=== PATIENT | male | born 1950 | race Caucasian/White ===

== ENCOUNTER 2019-05-04 16:17 | Inpatient (IN) | payer MEDICARE, SELFPAY ==
[2019-05-04] VITALS (14 sets, daily range): BP systolic 109–143; BP diastolic 67–85; PULSE 98–108; RESP 18–37; TEMP 36.1–37.2; O2SAT 76–98; BMI 33.0
--- NOTE | ~2019-05-04 | XR_ITS ---
XR chest 2V 05/04/2019 17:15 Indication: Shortness of breath. History of COPD. Procedure: 2 view chest Comparison: Comparison to multiple prior studies sequentially, with oldest reviewed study dated 10/01. Findings: Heart size normal. Chronic bibasilar atelectasis/scarring. No acute focal pneumonia, edema, pleural effusion or pneumothorax. No acute osseous abnormality. Impression: 1: No acute cardiopulmonary disease. Reviewed, dictated and finalized at location A. Impression: 1: No acute cardiopulmonary disease.
--- NOTE | 2019-05-04 16:54 | ECG_ITS ---
Measurements Intervals [place] Rate: 104 P: 63 MN: 140 QRS: -30 QRSD: 90 T: 50 QT: 318 QTc: 420 Interpretive Statements SINUS TACHYCARDIA LEFT AXIS DEVIATION INCOMPLETE RIGHT BUNDLE BRANCH BLOCK DELAYED PRECORDIAL R/S TRANSITION LOW QRS VOLTAGE IN PRECORDIAL LEADS BORDERLINE ECG Electronically Signed On 05-05-2019 6:56:53 CDT by Alexi Prince D.O.
--- NOTE | 2019-05-04 16:56 | PC.NURSE ---
Pt states he slept more than normal today. Pt states he woke up this afternoon and checked his oxygen sat. Pt states it was 74%. Pt states he could not catch his breath. Pt denies pain. Pt has expiratory wheezing and diminished lung sounds throughout. Pt has family at bedside and call light in reach
--- NOTE | 2019-05-04 17:00 | ED.SOB ---
HPI - SOB/Dyspnea General Chief Complaint: Shortness of Breath/Dyspnea Stated Complaint: sob, hx copd Time Seen by Provider: 05/04/19 16:58 Source: patient, family (Son at bedside) and RN notes reviewed Mode of arrival: ambulatory Limitations: no limitations History of Present Illness HPI Narrative: Pt is a 68 y/o male presenting to the ED c/o SOB. Pt reports he started experiencing SOB earlier this morning. Pt's son at bedside notes the pt has a Hx of COPD and has chronic SOB with exertion. Pt states he does not have daytime oxygen and notes he does use oxygen to sleep at night. Pt denies palpitations, fever, or CP. Pt's son at bedside reports the pt required intubation after having PNA and also had a AAA surgery last year. Pt notes he is currently on a blood thinner due to a Hx of A Fib. Pertinent past history: COPD Onset (ago): unknown (Earlier this morning) Associated symptoms: denies other symptoms Related Data Home Medications Medication Instructions Recorded Confirmed diltiazem HCl [DILT-XR] 240 mg PO DAILY 05/04/19 05/04/19 rivaroxaban [Xarelto] 20 mg DAILY 05/04/19 05/04/19 rosuvastatin 40 mg PO DAILY 05/04/19 05/04/19 Allergies Allergy/AdvReac Type Severity Reaction Status Date / Time No Known Allergies Allergy Unknown Unverified 09/25/18 13:14 Review of Systems Review of Systems: Narrative: Constitutional: Negative for fever. Respiratory: Positive for dyspnea. Cardiovascular: Negative for palpitations or chest pain. All systems reviewed & are unremarkable except as noted in HPI and below PMFSH Past Medical History Medical History Adult idiopathic generalized osteoporosis Ankle fracture, left Ankle fracture, right Arthritis Atrial fibrillation Bladder cancer Cataracts, bilateral COPD (chronic obstructive pulmonary disease) Kidney stone Pneumonia UTI (urinary tract infection) Surgical History Surgical History H/O vascular surgery Stent in RLE S/P AAA repair S/P cataract surgery Family History Family History Father Family history of obesity Family history of cardiovascular disease Family history of coronary artery disease Sibling Family history of congenital heart disease, Onset Age: 60 Family history of respiratory disorder, Onset Age: 73 Mother Family history of primary malignant neoplasm of liver, Onset Age: 62 Social History Social History Smoking packs per day: 1.5 Smoking cigarettes per day: 30.0 Years smoked: 45 Smoking pack-years: 67.50 Smoking status: Former smoker Tobacco type: cigarettes Second hand tobacco smoke exposure: No Smoking end date: 02/23/16 Alcohol intake: never Substance use: never Gender identity (if verbalized by the patient): Male Spiritual care concerns: No Exam Const: General: no acute distress and well developed Orientation/consciousness: oriented to person, oriented to place, oriented to time and patient oriented x3 HENMT: Head: normocephalic Ears: external ears normal General nose exam: Normal external nose present Eyes: General: appearance normal, both eyes and all related structures Conjunctivae: conjunctivae normal Neck: Neck: normal visual inspection and full ROM Chest: Chest palpation & inspection: normal inspection of the chest and no tenderness Resp: Auscultation: wheezes Cardio: Rate: tachycardic Rhythm: regular rhythm Skin: General skin exam: normal color and turgor normal Neuro: General: oriented to person, oriented to place, oriented to time and patient oriented x3 Cognition (Neuro): normal cognition Extrem: General: normal to inspection, full ROM and no pedal edema Psych: Appearance: grossly normal Mental Status: mental status grossly normal Affect:
[2019-05-04] MEDS: IPRATROPIUM BR 0.02% INH SOLN 0.5 MG/2.5 ML VIAL INHALATION (17:17)
[2019-05-04] MEDS: ALBUTEROL SULFATE NEB 2.5 MG/0.5 ML INH INHALATION (17:18)
[2019-05-04 17:20] LABS: Basophils Absolute Auto 0.1 K/mm3 (0.0-0.1); Basophils Percent Auto 0.9 % (0.2-1.2); Eosinophils Absolute Auto 0.2 K/mm3 (0-0.3); Eosinophils Percent Auto 2.1 % (0-4.4); Hematocrit 40.6 % (42.0-52.0); Hemoglobin 11.5 g/dL (14.0-18.0); Immature Granulocyte Absolute 0.05 K/mm3 (0.00-0.031); Immature Granulocyte Percent A 0.6 % (0-0.5); Immature Platelet Fraction Pct 8.8 % (0.9-11.2); Lymphocytes Absolute Auto 1.18 K/mm3 (0.9-3.2); Lymphocytes Percent Auto 13.9 % (18.3-44.2); Mean Corpuscular HGB Conc 28.3 g/dl (32-36); Mean Corpuscular Hemoglobin 23.1 pg (26-34); Mean Corpuscular Volume 81.7 fl (80-100); Mean Platelet Volume 11.2 fl (7.4-10.4); Monocytes Absolute Auto 0.7 K/mm3 (0.1-0.6); Monocytes Percent Auto 8.5 % (2.6-8.5); Neutrophils Absolute Auto 6.3 K/mm3 (1.3-6.7); Platelet Count Result 177 k/mm3 (150-375); Red Blood Count 4.97 M/mm3 (4.6-6.20); Red Cell Distribution Width 17.3 % (11.5-14.5); White Blood Count 8.5 K/mm3 (4.5-10.0)
[2019-05-04 17:26] LABS: Hypochromasia 1+ (NORMAL); Ovalocytes 1+ (NORMAL); Platelet Estimate Adequate (Adequate)
[2019-05-04 17:30] LABS: Blood Urea Nitrogen 19 mg/dL (9-20); Calcium 8.5 mg/dL (8.4-10.2); Carbon Dioxide 31 mmol/L (22-30); Chloride 102 mmol/L (98-107); Estimated CRCL calculation 70 ml/min; Estimated Glomerular Filt Rate > 60; Glucose 116 mg/dL (75-110); Lactic Acid Reflex 1.1 mmol/L (0.7-2.1); Sodium 138 mmol/L (137-145)
[2019-05-04] MEDS: methylPREDNISolone SOD SUCC 40 MG VIAL IV PUSH (17:36)
--- NOTE | 2019-05-04 19:16 | PM.IMHP ---
H&P: HPI History of Present Illness Chief complaint: copd exacerbation Narrative: This is a 68 year old male with known COPD and chronic respiratory failure on 2L of oxygen at night who presented to the hospital today with a complaint of increased shortness of breath since this morning. The patient also noticed this morning that his oxygen sats were low. Associated symptoms include a sporadic poorly productive cough, wheezing, and generalized weakness. He mentions to me that the last time he had pneumonia he was intubated for almost a week. He denies any fevers, chest pain, palpitations, abdominal pain, dysuria, hematuria, or LE swelling. The patient just saw his vascular surgeon yesterday for follow up for his AAA repair that was done last year. Actually the patient denies any other symptoms. He desaturated on room air in the ER and we were asked to admit the patient to the hospital for a COPD exacerbation. No other complaints. Review of Systems Review of Systems: All systems reviewed & are unremarkable except as noted in HPI and below PMFSH Past Medical History Medical History Adult idiopathic generalized osteoporosis Ankle fracture, left Ankle fracture, right Arthritis Atrial fibrillation Bladder cancer Cataracts, bilateral COPD (chronic obstructive pulmonary disease) Kidney stone Pneumonia UTI (urinary tract infection) Surgical History Surgical History H/O vascular surgery Stent in RLE S/P AAA repair S/P cataract surgery Family History Family History Father Family history of obesity Family history of cardiovascular disease Family history of coronary artery disease Sibling Family history of congenital heart disease, Onset Age: 60 Family history of respiratory disorder, Onset Age: 73 Mother Family history of primary malignant neoplasm of liver, Onset Age: 62 Social History Social History Smoking packs per day: 1.5 Smoking cigarettes per day: 30.0 Years smoked: 45 Smoking pack-years: 67.50 Smoking status: Former smoker Tobacco type: cigarettes Second hand tobacco smoke exposure: No Smoking end date: 02/23/16 Alcohol intake: never Substance use: never Gender identity (if verbalized by the patient): Male Spiritual care concerns: No Meds Home Medications and Allergies Home Medications Medication Instructions Recorded Confirmed Type umeclidinium 62.5 mcg-vilanterol 1 inhalation INHALATION DAILY #60 01/30/19 05/04/19 Rx 25 mcg/actuation powdr for each inhalation diltiazem HCl [DILT-XR] 240 mg PO DAILY 05/04/19 05/04/19 History rivaroxaban [Xarelto] 20 mg DAILY 05/04/19 05/04/19 History rosuvastatin 40 mg PO DAILY 05/04/19 05/04/19 History Allergies Allergy/AdvReac Type Severity Reaction Status Date / Time No Known Allergies Allergy Unknown Unverified 09/25/18 13:14 Vital Signs Vital Signs - 24 hr 05/04/19 16:40 05/04/19 16:43 05/04/19 16:58 Temperature 37.2 C Pulse Rate 107 H 103 H Respiratory Rate 20 19 Blood Pressure 124/72 Pulse Oximetry 76 L 94 94 05/04/19 17:05 05/04/19 17:18 05/04/19 17:24 Temperature Pulse Rate 103 H 101 H 102 H Respiratory Rate 18 20 20 Blood Pressure Pulse Oximetry 98 05/04/19 17:30 05/04/19 17:45 05/04/19 18:00 Temperature Pulse Rate 98 102 H 100 Respiratory Rate 37 H 23 H 20 Blood Pressure Pulse Oximetry 93 97 78 L 05/04/19 18:15 05/04/19 18:30 05/04/19 18:37 Temperature Pulse Rate 98 101 H 103 H Respiratory Rate 25 H 25 H 32 H Blood Pressure 143/67 H Pulse Oximetry 84 L 92 91 05/04/19 18:45 Temperature Pulse Rate 100 Respiratory Rate 24 H Blood Pressure Pulse Oximetry 90 Exam Const: General: cooperative,
--- NOTE | 2019-05-04 20:49 | ADMGEN ---
This patient, Pedro Angelo, was admitted to Medical Room 349-. Patient/family oriented to hospital policies and general routines including ID bracelet, bed and alarms, visiting hours, pain management, procedures, bathroom and other care routines, personal items, smoking policy, room service/diet, and visiting hours. Valuables list has been completed. Information on how to activate the Rapid Response Team has been discussed. Patient/Family are encouraged to report perceived risks to care and to ask questions if they do not understand what they are told or what they should do.
--- NOTE | 2019-05-04 22:08 | PCRCNOTE ---
No 1999 tx given due to no room assigned at that time
[2019-05-05] VITALS (19 sets, daily range): BP systolic 105–142; BP diastolic 59–87; PULSE 86–110; RESP 18–20; TEMP 36.1–36.3; O2SAT 92–96
[2019-05-05] MEDS: methylPREDNISolone SOD SUCC 125 MG VIAL 60 MG IV PUSH ×4 (00:09→20:38)
[2019-05-05] MEDS: IPRATROPIUM BR 0.02% INH SOLN 0.5 MG/2.5 ML VIAL INHALATION ×4 (01:00→19:28)
[2019-05-05] MEDS: ALBUTEROL SULFATE NEB 2.5 MG/0.5 ML INH 5 MG INHALATION ×4 (01:00→19:28)
[2019-05-05 06:01] LABS: Basophils Percent Auto 0.5 % (0.2-1.2); Hematocrit 43.7 % (42.0-52.0); Hemoglobin 11.9 g/dL (14.0-18.0); Immature Granulocyte Absolute 0.14 K/mm3 (0.00-0.031); Immature Granulocyte Percent A 1.6 % (0-0.5); Lymphocytes Absolute Auto 0.57 K/mm3 (0.9-3.2); Lymphocytes Percent Auto 6.7 % (18.3-44.2); Mean Corpuscular HGB Conc 27.2 g/dl (32-36); Mean Corpuscular Hemoglobin 22.9 pg (26-34); Mean Corpuscular Volume 84.2 fl (80-100); Mean Platelet Volume 11.2 fl (7.4-10.4); Monocytes Percent Auto 0.2 % (2.6-8.5); Neutrophils Absolute Auto 7.7 K/mm3 (1.3-6.7); Platelet Count Result 230 k/mm3 (150-375); Red Blood Count 5.19 M/mm3 (4.6-6.20); Red Cell Distribution Width 17.1 % (11.5-14.5); White Blood Count 8.5 K/mm3 (4.5-10.0)
[2019-05-05 06:12] LABS: Blood Urea Nitrogen 20 mg/dL (9-20); Calcium 8.7 mg/dL (8.4-10.2); Carbon Dioxide 33 mmol/L (22-30); Chloride 104 mmol/L (98-107); Estimated CRCL calculation 66 ml/min; Estimated Glomerular Filt Rate 60; Glucose 154 mg/dL (75-110); Magnesium 2.3 mg/dL (1.6-2.3); Potassium 5.7 mmol/L (3.4-5.0); Sodium 139 mmol/L (137-145)
[2019-05-05 06:58] LABS: Anisocytosis 1+ (NORMAL); Hypochromasia 1+ (NORMAL); Platelet Estimate Adequate (Adequate)
--- NOTE | 2019-05-05 07:08 | PHAR ---
Home med of ANORO ELLIPTA 62.5mcg/25mcg has been verified.
[2019-05-05] MEDS: ROSUVASTATIN 10 MG TABLET 40 MG PO (09:33)
--- NOTE | 2019-05-05 11:05 | PM.IMPN ---
Progress Note: A&P Assessment and Plan (1) Acute exacerbation of chronic obstructive pulmonary disease (COPD): Code(s): J44.1 - Chronic obstructive pulmonary disease with (acute) exacerbation Status: Acute Assessment and Plan: Patient symptomatically improving, although still requiring oxygen. Will taper steroids to Q12 hr for today PEP therapy RT assess and treat BC and sputum cultures pending Wean to home oxygen requirements as tolerated (2) Normocytic anemia: Code(s): D64.9 - Anemia, unspecified Status: Acute Assessment and Plan: Likely anemia of chronic disease. No signs of acute blood loss. H&H stable today Monitor H/H Transfuse prn (3) Atrial fibrillation: Qualifiers: Atrial fibrillation type: unspecified Qualified Code(s): I48.91 - Unspecified atrial fibrillation Code(s): I48.91 - Unspecified atrial fibrillation Status: Acute Assessment and Plan: Appears to be in sinus rhythm at time of evaluation Continue Xarelto for anticoagulation Continue dilatiazem for rate control Subjective Date/time seen: 05/05/19 11:05 Interval history: Patient is a 68 yo M with history of COPD and chronic respiratory failure on 2L of oxygen at night, and EDILSON (does not tolerate a mask) who is here for for COPD exacerbation. Patient states that he is feeling better today, although now is on 5L O2 while in the room. Nursing reports that he does well during the day, but desats overnight. He states his SOB is improving. He is wishing to go home as soon as possible; it was discussed the importance of making sure his breathing is improving, if not stable prior to leaving the hospital. He has no other complaints at this moment. He does state he does not want to be on steroids for too long, because the make him crazy and what sounds like makes him experience hallucinations from previous treatments with steroids. Denies f/c/ns, headaches, dizziness, lightheadedness, changes in v/h, cp/palpitations, n/v/d/c, abd pain, dysuria, hematuria, cloudy urine, calf pain/swelling, s/sx of stroke Review of Systems Review of Systems: All systems reviewed & are unremarkable except as noted in HPI and below Exam Narrative: Exam Narrative: Patient sitting on side of bed at time of visit Const: General: cooperative, comfortable, no acute distress, alert and awake Nutritional Appearance: well nourished Orientation/consciousness: patient oriented x3 HENMT: Head: normal to inspection General nose exam: Normal external nose present Face and sinus: face symmetric Mouth: Yes other (erythema of oropharynx) Teeth and gingiva: dentures Eyes: General: appearance normal, both eyes and all related structures Sclera: scleral abnormality (injected) Pupils: Irregular pupils on the right (inferior pupil defect noted) EOM: EOMs intact bilaterally Neck: Neck: supple and no JVD Resp: Effort & Inspection: normal respiratory effort Auscultation: diminished lung sounds Cardio: Rate: tachycardic Rhythm: regular rhythm Heart sounds: no murmurs GI: Inspection: normal to inspection Auscultation: normal bowel sounds Skin: General skin exam: normal color and no rashes or lesions noted Neuro: General: patient oriented x3, moves all extremities and no focal motor deficits Cranial nerves: Yes Equal, round and reactive pupils present Speech: normal speech Motor exam (neuro): 5/5 motor strength present throughout Extrem: Right lower extremity: no edema Left lower extremity: no edema Other: NTTP b/l calves Psych: Mental Status: mental status grossly normal Affect: normal affect Objective Data Vital Signs Vital Signs: Vital Signs - 24 hr 05/04/19 16:40 05/04/19 16:43 05/04/19 16:58 Temperature 98.9 F Pulse Rate 107 H 103 H Respiratory Rate 20 19 Blood Pressure 124/72 Pulse Oximetry 76 L 94 94
[2019-05-05] MEDS: RIVAROXABAN 20 MG TABLET BY MOUTH (17:48)
[2019-05-06] VITALS (18 sets, daily range): BP systolic 124–152; BP diastolic 64–65; PULSE 66–95; RESP 14–22; TEMP 36.1–36.4; O2SAT 93–97
[2019-05-06] MEDS: IPRATROPIUM BR 0.02% INH SOLN 0.5 MG/2.5 ML VIAL INHALATION ×4 (00:46→20:02)
[2019-05-06] MEDS: ALBUTEROL SULFATE NEB 2.5 MG/0.5 ML INH 5 MG INHALATION ×2 (00:46→10:11)
[2019-05-06 05:59] LABS: Hematocrit 36.9 % (42.0-52.0); Hemoglobin 10.5 g/dL (14.0-18.0); Mean Corpuscular HGB Conc 28.5 g/dl (32-36); Mean Corpuscular Hemoglobin 23.1 pg (26-34); Mean Corpuscular Volume 81.3 fl (80-100); Mean Platelet Volume 11.4 fl (7.4-10.4); Platelet Count Result 219 k/mm3 (150-375); Red Blood Count 4.54 M/mm3 (4.6-6.20); Red Cell Distribution Width 16.7 % (11.5-14.5); White Blood Count 11.9 K/mm3 (4.5-10.0)
[2019-05-06 06:15] LABS: Blood Urea Nitrogen 36 mg/dL (9-20); Calcium 8.6 mg/dL (8.4-10.2); Carbon Dioxide 30 mmol/L (22-30); Chloride 99 mmol/L (98-107); Estimated CRCL calculation 66 ml/min; Estimated Glomerular Filt Rate 60; Glucose 137 mg/dL (75-110); Magnesium 2.2 mg/dL (1.6-2.3); Potassium 5.2 mmol/L (3.4-5.0); Sodium 137 mmol/L (137-145)
[2019-05-06 08:39] LABS: Iron 44 ug/dL (49-181)
[2019-05-06 08:49] LABS: Percent Iron Saturation 10 % (20-50)
[2019-05-06] MEDS: ROSUVASTATIN 10 MG TABLET 40 MG PO (09:48)
[2019-05-06] MEDS: methylPREDNISolone SOD SUCC 125 MG VIAL 60 MG IV PUSH ×2 (09:49→22:12)
--- NOTE | 2019-05-06 13:14 | PM.IMPN ---
Progress Note: A&P Assessment and Plan (1) Acute exacerbation of chronic obstructive pulmonary disease (COPD): Code(s): J44.1 - Chronic obstructive pulmonary disease with (acute) exacerbation Status: Acute Assessment and Plan: Patient symptomatically improving, although still requiring oxygen at 2.5L today and satting at low 90s; improvement from yesterday. Wheezing on exam today Will continue steroids at Q12 hr for today. Possibly wean tomorrow PEP therapy, mucinex, switch albuterol neb to levalbuterol today due to jitteriness RT assess and treat BC and sputum cultures pending Wean to home oxygen requirements as tolerated (2) Normocytic anemia: Code(s): D64.9 - Anemia, unspecified Status: Acute Assessment and Plan: Likely anemia of chronic disease. No signs of acute blood loss. H&H lower at 10.5/26.9 today Monitor H/H Transfuse prn (3) Atrial fibrillation: Qualifiers: Atrial fibrillation type: unspecified Qualified Code(s): I48.91 - Unspecified atrial fibrillation Code(s): I48.91 - Unspecified atrial fibrillation Status: Acute Assessment and Plan: Appears to be in sinus rhythm at time of evaluation Continue Xarelto for anticoagulation Continue dilatiazem for rate control Subjective Date/time seen: 05/06/19 13:14 Interval history: Patient is a 68 yo M with history of COPD and chronic respiratory failure on 2L of oxygen at night, and EDILSON (does not tolerate a mask) who is here for for COPD exacerbation. Patient states that he is about the same today. He is not SOB resting comfortably on 2.5L O2 (Home req of 2L at night). He has a generally non-productive cough occasionally. He thinks he had some mild hallucinations overnight and felt jittery with the steroids. He is more open to trying CPAP once he leaves here. He follows Dr. Joseph as an outpatient and has an appointment in May. Denies f/c/ns, headaches, dizziness, lightheadedness, cp/palpitations, sob, n/v/d/c, abd pain, dysuria, hematuria, cloudy urine, calf pain/swelling, s/sx of stroke Review of Systems Review of Systems: All systems reviewed & are unremarkable except as noted in HPI and below Exam Narrative: Exam Narrative: Patient lying supine in bed with head slightly raised at time of visit Const: General: cooperative, comfortable, no acute distress, alert and awake Nutritional Appearance: well nourished Orientation/consciousness: patient oriented x3 HENMT: Head: normal to inspection General nose exam: Normal external nose present Face and sinus: face symmetric Eyes: General: appearance normal, both eyes and all related structures Sclera: scleral abnormality (injected) Pupils: Irregular pupils on the right (inferior pupil defect noted) EOM: EOMs intact bilaterally Neck: Neck: supple and no JVD Resp: Effort & Inspection: normal respiratory effort, able to speak in complete sentences, not labored and no respiratory distress Auscultation: rhonchi throughout, wheezes expiratory wheezes (mild) and diminished lung sounds Cardio: Rate: tachycardic Rhythm: regular rhythm Heart sounds: no murmurs GI: Inspection: non-distended GI Palp: No abdominal tenderness and Yes Soft to palpation Auscultation: normal bowel sounds and normoactive bowel sounds Skin: General skin exam: normal color and no rashes or lesions noted Neuro: General: patient oriented x3, moves all extremities and no focal motor deficits Speech: normal speech Motor exam (neuro): 5/5 motor strength present throughout Extrem: Right lower extremity: no edema Left lower extremity: no edema Other: NTTP b/l calves Psych: Mental Status: mental status grossly normal Affect: normal affect Objective Data Vital Signs Vital Signs: Vital Signs - 24 hr 05/05/19 13:59 05/05/19 14:00 05/05/19 14:09 Temperature
[2019-05-06] MEDS: RIVAROXABAN 20 MG TABLET BY MOUTH (17:48)
[2019-05-07] VITALS (20 sets, daily range): BP systolic 134–148; BP diastolic 59–78; PULSE 77–111; RESP 16–23; TEMP 36.2–36.5; O2SAT 93–97
[2019-05-07] MEDS: IPRATROPIUM BR 0.02% INH SOLN 0.5 MG/2.5 ML VIAL INHALATION ×4 (01:18→21:00)
[2019-05-07 06:07] LABS: Hematocrit 38.6 % (42.0-52.0); Mean Corpuscular HGB Conc 28.5 g/dl (32-36); Mean Corpuscular Hemoglobin 23.1 pg (26-34); Mean Corpuscular Volume 80.9 fl (80-100); Mean Platelet Volume 10.9 fl (7.4-10.4); Platelet Count Result 230 k/mm3 (150-375); Red Blood Count 4.77 M/mm3 (4.6-6.20); Red Cell Distribution Width 17.1 % (11.5-14.5); White Blood Count 12.4 K/mm3 (4.5-10.0)
[2019-05-07 08:37] LABS: Blood Urea Nitrogen 36 mg/dL (9-20); Calcium 8.6 mg/dL (8.4-10.2); Carbon Dioxide 31 mmol/L (22-30); Chloride 100 mmol/L (98-107); Estimated CRCL calculation 66 ml/min; Estimated Glomerular Filt Rate 60; Glucose 202 mg/dL (75-110); Magnesium 2.3 mg/dL (1.6-2.3); Sodium 139 mmol/L (137-145)
[2019-05-07] MEDS: methylPREDNISolone SOD SUCC 125 MG VIAL 60 MG IV PUSH (09:40)
[2019-05-07] MEDS: ROSUVASTATIN 10 MG TABLET 40 MG PO (09:40)
[2019-05-07] MEDS: IRON SUCROSE COMPLEX 500 MG in SODIUM CHLORIDE 0.9% IV 250 ML 78.6 MG IVPB (10:27)
--- NOTE | 2019-05-07 12:55 | PM.IMPN ---
Progress Note: A&P Assessment and Plan (1) Acute exacerbation of chronic obstructive pulmonary disease (COPD): Code(s): J44.1 - Chronic obstructive pulmonary disease with (acute) exacerbation Status: Acute Assessment and Plan: Patient symptomatically improving, although still requiring oxygen at 2.5L again today. Improvement on lung exam today Will Taper to 40 mg Solu-Medrol at Q12 hr starting tonight. Possibly wean again tomorrow PEP therapy, mucinex, levalbuterol nebs RT assess and treat BC and sputum cultures pending Wean to home oxygen requirements as tolerated Will order Home O2 eval tomorrow (2) Normocytic anemia: Code(s): D64.9 - Anemia, unspecified Status: Acute Assessment and Plan: Likely anemia of chronic disease. No signs of acute blood loss. Hgb 11.0. Iron panel shows low stores. Venofer 500 mg IV today; daily iron pill starting tomorrow Follow up with PCP Monitor H/H Transfuse prn (3) Atrial fibrillation: Qualifiers: Atrial fibrillation type: unspecified Qualified Code(s): I48.91 - Unspecified atrial fibrillation Code(s): I48.91 - Unspecified atrial fibrillation Status: Acute Assessment and Plan: Appears to be in sinus rhythm at time of evaluation. Telemetry shows predominantly NSR, occasionally tachycardia; several instances of artifact. Asymptomatic Continue Xarelto for anticoagulation Continue dilatiazem for rate control Subjective Date/time seen: 05/07/19 12:55 Interval history: Patient is a 68 yo M with history of COPD and chronic respiratory failure on 2L of oxygen at night, and EDILSON (does not tolerate a mask) who is here for for COPD exacerbation. Patient states that he is about the same today. Again, he is not SOB, resting comfortably on 2.5L O2 (Home req of 2L at night), still. He has more sputum production from his cough. He slept better last night with the adjusted CPAP mask. Otherwise no other complaints. Denies f/c/s, headaches, dizziness, lightheadedness, cp/palpitations, sob, n/v/d/c, abd pain, dysuria, hematuria, cloudy urine, calf pain/swelling Review of Systems Review of Systems: All systems reviewed & are unremarkable except as noted in HPI and below Exam Narrative: Exam Narrative: Patient lying supine in bed with head slightly raised at time of visit Const: General: cooperative, comfortable, no acute distress, alert and awake Nutritional Appearance: well nourished Orientation/consciousness: patient oriented x3 HENMT: Head: normal to inspection General nose exam: Normal external nose present Face and sinus: face symmetric Teeth and gingiva: dentures Eyes: General: appearance normal, both eyes and all related structures Sclera: scleral abnormality (injected) Pupils: Irregular pupils on the right (inferior pupil defect noted) EOM: EOMs intact bilaterally Neck: Neck: trachea midline and supple Resp: Effort & Inspection: normal respiratory effort, able to speak in complete sentences, not labored and no respiratory distress Auscultation: rhonchi throughout (interval improvement from yesterday), wheezes expiratory wheezes (interval improvement from yesterday) and diminished lung sounds Cardio: Rate: regular rate Rhythm: regular rhythm Heart sounds: no murmurs GI: Inspection: non-distended GI Palp: No abdominal tenderness and Yes Soft to palpation Auscultation: normal bowel sounds and normoactive bowel sounds Skin: General skin exam: normal color and no rashes or lesions noted Neuro: General: patient oriented x3, moves all extremities and no focal motor deficits Speech: normal speech Motor exam (neuro): 5/5 motor strength present throughout Extrem: Right lower extremity: no edema Left lower extremity: no edema Other: NTTP b/l calves Psych: Mental Status: mental status grossly normal Affe
[2019-05-07] MEDS: RIVAROXABAN 20 MG TABLET BY MOUTH (17:52)
[2019-05-07] MEDS: methylPREDNISolone SOD SUCC 40 MG VIAL IV PUSH (17:52)
[2019-05-08] VITALS (27 sets, daily range): BP systolic 119–141; BP diastolic 63–84; PULSE 63–152; RESP 16–20; TEMP 36.1–36.6; O2SAT 86–97
[2019-05-08] MEDS: IPRATROPIUM BR 0.02% INH SOLN 0.5 MG/2.5 ML VIAL INHALATION ×4 (02:07→22:56)
[2019-05-08] MEDS: methylPREDNISolone SOD SUCC 40 MG VIAL IV PUSH (06:04)
[2019-05-08 06:11] LABS: Hematocrit 37.6 % (42.0-52.0); Hemoglobin 10.4 g/dL (14.0-18.0); Mean Corpuscular HGB Conc 27.7 g/dl (32-36); Mean Corpuscular Hemoglobin 22.7 pg (26-34); Mean Corpuscular Volume 81.9 fl (80-100); Mean Platelet Volume 11.5 fl (7.4-10.4); Platelet Count Result 197 k/mm3 (150-375); Red Blood Count 4.59 M/mm3 (4.6-6.20); Red Cell Distribution Width 17.2 % (11.5-14.5); White Blood Count 8.9 K/mm3 (4.5-10.0)
[2019-05-08 06:28] LABS: Blood Urea Nitrogen 34 mg/dL (9-20); Calcium 8.6 mg/dL (8.4-10.2); Carbon Dioxide 34 mmol/L (22-30); Chloride 100 mmol/L (98-107); Estimated CRCL calculation 71 ml/min; Estimated Glomerular Filt Rate > 60; Glucose 129 mg/dL (75-110); Sodium 137 mmol/L (137-145)
[2019-05-08 06:38] LABS: Potassium 4.8 mmol/L (3.4-5.0)
[2019-05-08] MEDS: ROSUVASTATIN 10 MG TABLET 40 MG PO (08:11)
[2019-05-08] MEDS: FERROUS SULFATE 324 MG TABLET PO (08:12)
--- NOTE | 2019-05-08 09:04 | PM.IMPN ---
Progress Note: A&P Assessment and Plan (1) Atrial fibrillation with RVR: Code(s): I48.91 - Unspecified atrial fibrillation Status: Acute Assessment and Plan: History of paroxysmal atrial fibrillation on Xarelto and diltiazem. This morning around 6:00 a.m. the patient went into atrial fibrillation with rapid ventricular response. Telemetry showed AFib with a heart rate of 110-126 bpm, with occasional PVCs. The nurse administered his home Cardizem 250 mg without much improvement of his heart rate. Cardiology was consulted at this time for further evaluation of his AFib with RVR. Will continue monitoring the patient on telemetry and she would cardiology would like to do. (2) Acute exacerbation of chronic obstructive pulmonary disease (COPD): Code(s): J44.1 - Chronic obstructive pulmonary disease with (acute) exacerbation Status: Acute Assessment and Plan: Patient symptomatically improving, although still requiring oxygen at 2.5L again today. Lung exam shows distant lung sounds with end-expiratory wheezing throughout. Continue 40 mg Solu-Medrol at Q12 hr . Consult pulmonology about further recommendations on discharge medications, respiratory status and positive blood cultures showing Pseudomonas. PEP therapy, mucinex, levalbuterol nebs RT assess and treat Blood cultures are still negative at this time. Wean to home oxygen requirements as tolerated Will order Home O2 eval (3) Normocytic anemia: Code(s): D64.9 - Anemia, unspecified Status: Acute Assessment and Plan: Likely anemia of chronic disease. No signs of acute blood loss. Hgb 10.4. Iron panel shows low stores. Venofer 500 mg IV yesterday; daily iron pill starting today Follow up with PCP Monitor H/H Transfuse prn Time Spent With Patient Time with patient: 25 - 35 minutes Subjective Date/time seen: 05/08/19 09:04 Interval history: Patient is a 68 yo M with history of COPD and chronic respiratory failure on 2L of oxygen at night, and EDILSON (does not tolerate a mask) who is here for for COPD exacerbation. Date of service 05/08/2019: The patient reports feeling about the same today. He states he feels like he is at his baseline but he is requiring 2.5 L of oxygen via nasal cannula. He does report shortness of breath with exertion and denies much of a cough. He was found to be in atrial fibrillation with RVR this morning but denies much palpitations at this time. Denies any fevers, chills, lightheadedness, dizziness, leg swelling, calf pain, chest pain, nausea, vomiting, abdominal pain or any other symptoms at this time. Review of Systems Review of Systems: All systems reviewed & are unremarkable except as noted in HPI and below Exam Narrative: Exam Narrative: General: 68-year-old man sitting up in bed talking on the phone. Appears comfortable, on 2.5 L via nasal cannula. In no acute distress. Skin: No jaundice or cyanosis. Good skin turgor. Neck: Full range of motion. Supple. Respiratory: Decreased breath sounds throughout all lung allison anteriorly and posteriorly. Diffuse end expiratory wheezing throughout. No bony chest wall tenderness. Cardiovascular: Irregularly irregular heart rhythm with a tachycardic rate, without murmur. Lower extremities: No lower extremity edema. Distal pulses are easily palpated. No calf tenderness to palpation. Gastrointestinal: The abdomen is soft, nontender and nondistended with active bowel sounds. Psychiatric: Lucid and oriented. Memory intact. Neurologic: No focal deficits. Speech is clear. No facial drooping. Objective Data Vital Signs Vital Signs: Vital Signs - 24 hr 05/07/19 09:08 05/07/19 09:20 05/07/19 09:23 Temperature Pulse Rate 99 99 Respiratory Rate 20 20 Blood Pressure Pulse Oximetry 93 05/07/19 12:0
--- NOTE | 2019-05-08 12:47 | PM.CNPUL ---
Assessment and Plan Assessment and plan (1) Hypoxia: Code(s): R09.02 - Hypoxemia Status: Acute Assessment and Plan: Unclear as to cause. May have had rapid afib at home during the acute lightheaded episode which can lead to poor signal on pulse oximetry. (2) Atrial fibrillation: Qualifiers: Atrial fibrillation type: unspecified Qualified Code(s): I48.91 - Unspecified atrial fibrillation Code(s): I48.91 - Unspecified atrial fibrillation Status: Acute Assessment and Plan: Currently being managed. I will discontinue Levabuterol as this can also aggrivate the Afib. (3) Pseudomonas respiratory infection: Code(s): J98.8 - Other specified respiratory disorders; A49.8 - Other bacterial infections of unspecified site Status: Acute Assessment and Plan: This is likely a colonization. The patient had no signs or symptoms of COPD exacerbation or pneumonia and continues to feel well. - Will switch him to Levaquin 500 mg daily for four more days then discontinue - can be discharged home from pulmonary perspective once Afib is under control. History of Present Illness History of Present Illness Consult date: 05/08/19 Chief complaint: copd exacerbation Narrative: 68 y/o male with COPD on home O2, Afib presents with lightheadness and noticing that his O2 sats dropped to 89%. He denies worsening dyspnea, cough, wheezing, fever, chills or night sweats. He had a sputum culture that showed pseudomonas that is very suscetible to multiple antibiotics and is current on Levofloxacin 750 mg IV daily. This morning he is in rapid Afib with rates in the 160's but is asymptomatic. Review of Systems Review of Systems: All systems reviewed & are unremarkable except as noted in HPI and below PMFSH Past Medical History Medical History Adult idiopathic generalized osteoporosis Ankle fracture, left Ankle fracture, right Arthritis Atrial fibrillation Bladder cancer Cataracts, bilateral COPD (chronic obstructive pulmonary disease) Kidney stone Pneumonia UTI (urinary tract infection) Surgical History Surgical History H/O vascular surgery Stent in RLE S/P AAA repair S/P cataract surgery Family History Family History Father Family history of obesity Family history of cardiovascular disease Family history of coronary artery disease Sibling Family history of congenital heart disease, Onset Age: 60 Family history of respiratory disorder, Onset Age: 73 Mother Family history of primary malignant neoplasm of liver, Onset Age: 62 Social History Social History Smoking packs per day: 1.5 Smoking cigarettes per day: 30.0 Years smoked: 45 Smoking pack-years: 67.50 Smoking status: Former smoker Tobacco type: cigarettes Second hand tobacco smoke exposure: No Smoking end date: 02/23/16 Alcohol intake: never Substance use: never Gender identity (if verbalized by the patient): Male Spiritual care concerns: No Meds Home Medications and Allergies Home Medications Medication Instructions Recorded Confirmed Type umeclidinium 62.5 mcg-vilanterol 1 inhalation INHALATION DAILY #60 01/30/19 05/04/19 Rx 25 mcg/actuation powdr for each inhalation diltiazem HCl [DILT-XR] 240 mg PO DAILY 05/04/19 05/04/19 History rivaroxaban [Xarelto] 20 mg DAILY 05/04/19 05/04/19 History rosuvastatin 40 mg PO DAILY 05/04/19 05/04/19 History Allergies Allergy/AdvReac Type Severity Reaction Status Date / Time No Known Allergies Allergy Unknown Unverified 09/25/18 13:14 Vital Signs Vital Signs - 24 hr 05/07/19 14:00 05/07/19 14:52 05/07/19 14:58 Temperature 36.5 C Pulse Rate 93 93 94 Respiratory Rate 18 20 20 Blood
--- NOTE | 2019-05-08 14:29 | HOMEO2EVAL ---
Home Oxygen Evaluation RC: Home Oxygen (O2) Evaluation Start: 05/08/19 12:00 Freq: ONCE Status: Active Protocol: RPE Activity Type Activity Date Activity User E-Sign Co-Sign Detail Recorded Client Recorded Date Recorded By Document 05/08/19 14:00 [email or web address] [email or web address] 05/08/19 14:29 DJO Document 05/08/19 14:05 [email or web address] [email or web address] 05/08/19 14:29 DJO Document 05/08/19 14:10 [email or web address] [email or web address] 05/08/19 14:29 DJO Document 05/08/19 14:15 [email or web address] [email or web address] 05/08/19 14:29 DJO Document 05/08/19 14:20 [email or web address] [email or web address] 05/08/19 14:29 DJO Document 05/08/19 14:28 [email or web address] [email or web address] 05/08/19 14:29 DJO 05/08/19 05/08/19 05/08/19 14:00 14:05 14:10 Home O2 Evaluation Test Phase Resting Exercise Exercise Oxygen Delivery Room Air Room Air Nasal Cannula Oxygen Flow Rate (L/min) 1 Pulse Oximetry (90-100 %) 91 86 L 87 L Pulse Rate (60-100 beats/min) 104 H 133 H 128 H Ambulation Distance (feet) Treatment Charges 05/08/19 05/08/19 05/08/19 14:15 14:20 14:28 Home O2 Evaluation Test Phase Exercise Exercise Resting Oxygen Delivery Nasal Cannula Nasal Cannula Room Air Oxygen Flow Rate (L/min) 2 3 Pulse Oximetry (90-100 %) 88 L 90 91 Pulse Rate (60-100 beats/min) 127 H 119 H 99 Ambulation Distance (feet) 400 Treatment Charges O2 Evaluation
[2019-05-08] MEDS: DILTIAZEM HCL 30 MG TABLET PO (15:03)
--- NOTE | 2019-05-08 16:34 | PM.CNCAR ---
Assessment and Plan Additional Plan patient has recurrence of atrial fibrillation since 8:00 a.m. this morning while taking his baseline regimen of diltiazem and Xarelto. He is not known to have coronary artery disease in previous echocardiograms have not demonstrated any valvular disease or left ventricular systolic dysfunction. Despite his history of AAA his baseline medical regimen did not include a beta-roz. Obviously his AAA has now been treated with endovascular stenting. My recommendation will be to transition him from diltiazem to sotalol for hopefully more aggressive / effective a specific antiarrhythmic therapy. Systemic anticoagulation with Xarelto is very important and will be continued. We will follow him with you and hopefully the sotalol will provide a medical cardioversion. History of Present Illness History of Present Illness Consult date/time: 05/08/19 16:34 Consult reason: atrial fibrillation Reason For Visit: copd exacerbation Narrative: This is a pleasant 68-year-old man of seeing at the request of the hospitalist for assistance with evaluation and management of atrial fib. This is a man who is known to Dr. Irene of our practice with a history of paroxysmal atrial fibrillation. He was admitted to [facility] days ago with symptoms of some shortness of breath was felt to be having a COPD exacerbation. He has been getting better clinically for the last couple of days this morning at about 80 a.m. he was noted to convert from sinus rhythm to AFib with RVR and with atrial fib despite having a heart rate of 130-150 was essentially asymptomatic and unaware of this. He is anticoagulated with Xarelto and has been taking his medication with good compliance. The patient currently is ordering his dinner and seems to be very comfortable and does not have any other significant complaints. He was [address] seen [address] Irene with an episode of atrial fib in the summer. He was admitted at that time with a community-acquired pneumonia this actually was quite severe and required intubation for 6 or 7 days. During that hospitalization he was in atrial fibrillation he was treated with diltiazem and Xarelto eventually he apparently converted to sinus rhythm and has been maintained on these agents since then. Echocardiogram at that time demonstrated normal left ventricular systolic function, grade 1 diastolic noncompliance and no significant valvular disease. He was last seen in our office by Dr. Irene in January of 2019 with no significant cardiac problems and was in sinus rhythm. He does have a significant history of hypertension as well as of abdominal aortic aneurysm. His AAA was followed for a few years by Dr. florian from vascular surgery who last summer performed a endovascular repair of this. He believes this was done at [facility]. He does not have any symptoms of chest pain pressure or heaviness he denies any orthopnea PND edema palpitations or syncope. Review of Systems Constitutional: Constitutional: Reports no additional constitutional complaints Eyes: Eyes: Reports no additional eye complaints ENT: Reports system reviewed and no additional complaints, except as documented Cardiovascular: Cardiovascular: Reports as per HPI Respiratory: Respiratory: Reports as per HPI Comments: Shortness of breath on admission currently much better Gastrointestinal: Gastrointestinal: Reports no additional gastrointestinal complaints Musculoskeletal: Musculoskeletal: Reports no additional musculoskeletal complaints Neurologic: Reports system reviewed and no additional complaints, except as documented Endocrine: Endocrine: Reports no additional endocrine complaints Hematologic/Lymphatic: Hematologic/Lymphatic: Reports no additional hematologic/lymphatic complaints PMFSH Past Medical History Medical History Adult idiopathic generalized osteoporosis Ankle fract
[2019-05-08] MEDS: RIVAROXABAN 20 MG TABLET BY MOUTH (17:36)
[2019-05-08] MEDS: SOTALOL HCL 80 MG TABLET PO (20:02)
[2019-05-08] MEDS: BUDESONIDE RESPULE NEB 0.5 MG/2 ML AMP INHALATION (22:56)
[2019-05-09] VITALS (24 sets, daily range): BP systolic 111–149; BP diastolic 60–83; PULSE 57–93; RESP 16–20; TEMP 36.5–36.6; O2SAT 92–98
[2019-05-09] MEDS: IPRATROPIUM BR 0.02% INH SOLN 0.5 MG/2.5 ML VIAL INHALATION ×4 (02:29→20:39)
[2019-05-09 05:54] LABS: Hematocrit 38.2 % (42.0-52.0); Mean Corpuscular HGB Conc 28.8 g/dl (32-36); Mean Corpuscular Hemoglobin 23.2 pg (26-34); Mean Corpuscular Volume 80.6 fl (80-100); Mean Platelet Volume 10.9 fl (7.4-10.4); Platelet Count Result 213 k/mm3 (150-375); Red Blood Count 4.74 M/mm3 (4.6-6.20); Red Cell Distribution Width 16.9 % (11.5-14.5); White Blood Count 10.1 K/mm3 (4.5-10.0)
[2019-05-09 06:09] LABS: Blood Urea Nitrogen 36 mg/dL (9-20); Calcium 8.7 mg/dL (8.4-10.2); Carbon Dioxide 34 mmol/L (22-30); Chloride 103 mmol/L (98-107); Estimated CRCL calculation 66 ml/min; Estimated Glomerular Filt Rate 60; Glucose 128 mg/dL (75-110); Potassium 4.8 mmol/L (3.4-5.0); Sodium 138 mmol/L (137-145)
[2019-05-09] MEDS: FERROUS SULFATE 324 MG TABLET PO (09:04)
[2019-05-09] MEDS: ROSUVASTATIN 10 MG TABLET 40 MG PO (09:05)
[2019-05-09] MEDS: SOTALOL HCL 80 MG TABLET PO ×2 (09:12→21:19)
[2019-05-09] MEDS: BUDESONIDE RESPULE NEB 0.5 MG/2 ML AMP INHALATION ×2 (09:29→20:39)
--- NOTE | 2019-05-09 10:25 | PM.PNPUL ---
Subjective Date/time seen: 05/08/19 10:25 Interval history: Feeling well. Patient denies Objective Data Vital Signs Vital Signs: Vital Signs - 24 hr 05/08/19 12:00 05/08/19 14:00 05/08/19 14:05 Temperature 36.4 C L Pulse Rate 124 H 106 H 133 H Respiratory Rate 20 Blood Pressure 141/84 H Pulse Oximetry 96 86 L 05/08/19 14:10 05/08/19 14:15 05/08/19 14:20 Temperature Pulse Rate 128 H 127 H 119 H Respiratory Rate Blood Pressure Pulse Oximetry 87 L 88 L 90 05/08/19 14:28 05/08/19 15:05 05/08/19 15:42 Temperature 36.6 C Pulse Rate 99 121 H 120 H Respiratory Rate 18 20 Blood Pressure 119/63 Pulse Oximetry 91 97 05/08/19 15:49 05/08/19 16:00 05/08/19 19:53 Temperature 36.3 C L Pulse Rate 113 H 128 H 98 Respiratory Rate 20 16 Blood Pressure 129/78 Pulse Oximetry 97 05/08/19 20:00 05/08/19 20:02 05/08/19 22:56 Temperature Pulse Rate 81 90 66 Respiratory Rate 20 Blood Pressure Pulse Oximetry 05/08/19 22:59 05/08/19 23:00 05/08/19 23:02 Temperature Pulse Rate 65 63 Respiratory Rate 20 Blood Pressure Pulse Oximetry 94 94 05/09/19 00:00 05/09/19 02:25 05/09/19 02:29 Temperature Pulse Rate 57 L 71 77 Respiratory Rate 18 Blood Pressure Pulse Oximetry 95 05/09/19 02:39 05/09/19 04:00 05/09/19 04:37 Temperature 36.6 C Pulse Rate 74 57 L 68 Respiratory Rate 18 16 Blood Pressure 119/70 Pulse Oximetry 98 05/09/19 08:00 05/09/19 09:12 05/09/19 09:32 Temperature Pulse Rate 88 79 74 Respiratory Rate 20 Blood Pressure Pulse Oximetry 97 05/09/19 09:54 Temperature Pulse Rate 68 Respiratory Rate 20 Blood Pressure Pulse Oximetry Intake/Output Intake/Output: Intake & Output 05/06/19 05/07/19 05/08/19 05/09/19 23:59 23:59 23:59 23:59 Intake Total 1550 1940 1685 660 Output Total 600 675 Balance 950 1265 1685 660 Meds/Results Medications: Active Medications Generic Name Dose Route Start Last Admin Trade Name Freq PRN Reason Stop Dose Admin Acetaminophen 650 mg 05/04/19 19:25 Tylenol Tablet PO Q4H PRN Mild Pain (1-3) or Fever Budesonide 0.5 mg 05/08/19 20:00 05/09/19 09:29 Pulmicort Respule Neb INHALATION 0.5 mg Q12HRT AXEL Administration Ferrous Sulfate 324 mg 05/08/19 09:00 05/09/19 09:04 Ferrous Sulfate PO 324 mg DAILY AXEL Administration Guaifenesin 1,200 mg 05/06/19 13:30 05/09/19 09:05 Mucinex 12 Hr Tab PO 1,200 mg Q12HR AXEL Administration Ipratropium [place] 0.5 mg 05/04/19 20:00 05/09/19 09:29 Atrovent Neb INHALATION 0.5 mg Q6HRT AXEL Administration Levofloxacin 500 mg 05/09/19 09:00 05/09/19 09:05 Levaquin Tab PO 05/12/19 09:00 500 mg DAILY AXEL Administration Rivaroxaban 20 mg 05/05/19 18:00 05/08/19 17:36 Xarelto BY MOUTH 20 mg DAILY@1800 [facility] Administration Rosuvastatin Calcium 40 mg 05/05/19 09:00 05/09/19 09:05 Crestor PO 40 mg DAILY [facility] Administration Sotalol HCl 80 mg 05/08/19 21:00 05/09/19 09:12 Betapace PO 80 mg Q12HR AXEL Administration Radiology Results: ITS Impressions Chest X-Ray 05/04/19 17:22 Impression: 1: No acute cardiopulmonary disease. Labs Labs: Laboratory Results - last 24 hr 05/09/19 05/09/19 05:25 05:25 WBC 10.1 H RBC 4.74 Hgb 11.0 L Hct 38.2 L MCV 80.6 MCH 23.2 L MCHC 28.8 L RDW 16.9 H Plt Count 213 MPV 10.9 H Sodium 138 Potassium 4.8 Chloride 103 Carbon Dioxide 34 H BUN 36 H Creatinine 1.20 Estim Creat Clear Calc 66 Estimated GFR 60 Glucose 128 H Calcium 8.7
--- NOTE | 2019-05-09 10:26 | PM.CNPUL ---
Assessment and Plan Assessment and plan (1) Pseudomonas respiratory infection: Code(s): J98.8 - Other specified respiratory disorders; A49.8 - Other bacterial infections of unspecified site Status: Acute Assessment and Plan: -Likely colonization, I see no evidence of acute infection, pneumonia or acute bronchitis - change levaquin to 500 mg daily and continue for 4 more days then discontinue (2) COPD (chronic obstructive pulmonary disease): Code(s): J44.9 - Chronic obstructive pulmonary disease, unspecified Status: Acute Assessment and Plan: - No signs of COPD exacerbation - d/c systemic steroids - d/c levalbuterol as this may be exacerbating Afib - pulmicort 0.5 mg bid while in hospital - continue Ipratropium as currently prescribed. - continue Anoro Ellipta ( umeclidium 62.5 mcg/Vilanterol 25 mcg ) 1 puff daily as outpatient once dishcarged. - can discharge home from pulmonary perspespective once Afib is under control. (3) Atrial fibrillation with RVR: Code(s): I48.91 - Unspecified atrial fibrillation Status: Acute History of Present Illness History of Present Illness Consult date: 05/08/19 Chief complaint: copd exacerbation Narrative: 68 y/o male with history of COPD on home O2, Afib, hyperlipidemia who sees Dr. Joseph in Clinic presents after feeling light headed and notice a slight drop on O2 sats to 89% during the event. He denied fever, chills, night sweats, cough, dyspnea, wheezing or change in sputum color or consistency. His chest imaging was clear on admission. His sputum was cultured and showed Pseudomonas. He has been stable and afebrile since admission. He is in rapid afib with a rate of 160's but asymptomatic while like in bed. Review of Systems Review of Systems: All systems reviewed & are unremarkable except as noted in HPI and below PMFSH Past Medical History Medical History Adult idiopathic generalized osteoporosis Ankle fracture, left Ankle fracture, right Arthritis Atrial fibrillation Bladder cancer Cataracts, bilateral COPD (chronic obstructive pulmonary disease) Kidney stone Pneumonia UTI (urinary tract infection) Surgical History Surgical History H/O vascular surgery Stent in RLE S/P AAA repair S/P cataract surgery Family History Family History Father Family history of obesity Family history of cardiovascular disease Family history of coronary artery disease Sibling Family history of congenital heart disease, Onset Age: 60 Family history of respiratory disorder, Onset Age: 73 Mother Family history of primary malignant neoplasm of liver, Onset Age: 62 Social History Social History Smoking packs per day: 1.5 Smoking cigarettes per day: 30.0 Years smoked: 45 Smoking pack-years: 67.50 Smoking status: Former smoker Tobacco type: cigarettes Second hand tobacco smoke exposure: No Smoking end date: 02/23/16 Alcohol intake: never Substance use: never Gender identity (if verbalized by the patient): Male Spiritual care concerns: No Meds Home Medications and Allergies Home Medications Medication Instructions Recorded Confirmed Type umeclidinium 62.5 mcg-vilanterol 1 inhalation INHALATION DAILY #60 01/30/19 05/04/19 Rx 25 mcg/actuation powdr for each inhalation diltiazem HCl [DILT-XR] 240 mg PO DAILY 05/04/19 05/04/19 History rivaroxaban [Xarelto] 20 mg DAILY 05/04/19 05/04/19 History rosuvastatin 40 mg PO DAILY 05/04/19 05/04/19 History Allergies Allergy/AdvReac Type Severity Reaction Status Date / Time No Known Allergies Allergy Unknown Unverified 09/25/18 13:14 Vital Signs Vital Signs - 24 hr 05/08/19 12:00 05/08/19 14:00 05/08/19 14:05 Tem
--- NOTE | 2019-05-09 10:53 | PM.IMPN ---
Progress Note: A&P Assessment and Plan (1) Atrial fibrillation with RVR: Code(s): I48.91 - Unspecified atrial fibrillation Status: Acute Assessment and Plan: History of paroxysmal atrial fibrillation on Xarelto and diltiazem. 05/08/2019 around 6:00 a.m. the patient went into atrial fibrillation with rapid ventricular response. Telemetry showed AFib with a heart rate of 110-126 bpm, with occasional PVCs. Cardiology evaluated the patient and switched him to Sotalol 80 mg Q12hrs. The patient will need to be monitored with serial EKGs prior to each Sotalol dose for QT monitoring. The patient converted back to NSR 05/07 around 1800. Will continue to monitor the medication while starting Sotalol. I talked to Yvonne Cardiology REMEDIAL TEACHER about the patient also being on Levaquin for Pseudomonas in sputum culture and she recommends us to continue monitoring QT length while on both Sotalol and Levaquin. Will continue monitoring the patient on telemetry and cardiology's input is appreciated (2) Acute exacerbation of chronic obstructive pulmonary disease (COPD): Code(s): J44.1 - Chronic obstructive pulmonary disease with (acute) exacerbation Status: Deleted Assessment and Plan: Patient symptomatically improving, although still requiring oxygen at 2.5L again today. Lung exam shows distant lung sounds with slight inspiratory wheezing throughout. Pulmonology evaluated the patient yesterday and discontinued his steroid treatment. He was continued on ipratropium breathing treatments q.6 hours and reported to continue taking his Anoro at home. The patient had positive blood cultures showing Pseudomonas and the cane flume watchman believes this could be a colonization but in the meantime will continue oral Levaquin for a total of 5 days for treatment. PEP therapy, mucinex RT assess and treat Home oxygen evaluation completed 05/08/2019 showed he should be on room air at rest but with any activity or exertion he should be on 3 L. Respiratory is working on getting him a portable oxygen concentrator prior to discharge. The patient already has home oxygen concentrator as well as bottles as needed. (3) Normocytic anemia: Code(s): D64.9 - Anemia, unspecified Status: Acute Assessment and Plan: Likely anemia of chronic disease. No signs of acute blood loss. Hgb 11. Iron panel shows low stores. Venofer 500 mg IV was given but will continue with daily iron pill Follow up with PCP Monitor H/H Transfuse prn Time Spent With Patient Time with patient: 25 - 35 minutes Subjective Date/time seen: 05/09/19 10:53 Interval history: Patient is a 68 yo M with history of COPD and chronic respiratory failure on 2L of oxygen at night, and EDILSON (does not tolerate a mask) who is here for for COPD exacerbation. Date of service 05/09/2019: The patient reports feeling about the same today. He states he feels like he is at his baseline but he is requiring 2.5 L of oxygen via nasal cannula. He reports his breathing has improved since getting his heart rate under control and placed on Sotalol. He does report shortness of breath with exertion and denies much of a cough. He converted back to NSR last night. Denies much palpitations at this time. Denies any fevers, chills, lightheadedness, dizziness, leg swelling, calf pain, chest pain, nausea, vomiting, abdominal pain or any other symptoms at this time. Review of Systems Review of Systems: All systems reviewed & are unremarkable except as noted in HPI and below Exam Narrative: Exam Narrative: General: 68-year-old man sitting up on the edge of the bed eating a snack. Appears comfortable, on 2.5 L via nasal cannula. In no acute distress. Skin: No jaundice or cyanosis. Good skin turgor. Neck: Full range of motion. Supple. Respiratory: Decreased breath soun
--- NOTE | 2019-05-09 10:54 | ECG_ITS ---
Measurements Intervals [place] Rate: 70 P: 86 NM: 136 QRS: -12 QRSD: 97 T: 48 QT: 378 QTc: 410 Interpretive Statements SINUS RHYTHM INCOMPLETE RIGHT BUNDLE BRANCH BLOCK BASELINE ARTIFACT- V2-V3 BORDERLINE ECG Electronically Signed On 05-09-2019 12:01:22 CDT by Alexi Prince D.O.
--- NOTE | 2019-05-09 12:37 | PM.PNCARD ---
Progress Note: A&P Assessment and Plan (1) COPD (chronic obstructive pulmonary disease): Code(s): J44.9 - Chronic obstructive pulmonary disease, unspecified Status: Acute Assessment and Plan: management as per primary team (2) Atrial fibrillation with RVR: Code(s): I48.91 - Unspecified atrial fibrillation Status: Acute Assessment and Plan: patient is currently in sinus rhythm. He has been initiated on sotalol yesterday for rhythm control. Patient is already on anticoagulation with rivaroxaban. Check EKG -check QT interval his renal function will need to be monitored as well as an outpatient. Subjective Date/time seen: 05/09/19 12:37 Chief complaint: Patient reports feeling better now; dyspnea improved patient reports improvement in shortness of breath. He denies any chest pain or palpitations. On telemetry, he is in sinus rhythm now. He was initiated on sotalol yesterday. He has been on anticoagulation with rivaroxaban. Exam Const: General: no acute distress, alert and awake HENMT: Head: normocephalic and atraumatic Ears: hearing grossly normal bilaterally and external ears normal General nose exam: Normal external nose present and no epistaxis Face and sinus: normal facial exam and no ecchymosis Mouth: Yes tongue normal and Yes moist mucous membranes Teeth and gingiva: dentition normal Eyes: Conjunctivae: conjunctivae normal Sclera: sclerae normal Pupils: Equal, round and reactive pupils present EOM: EOMs intact bilaterally Neck: Neck: normal visual inspection, supple and no JVD Thyroid: thyroid normal Carotids: normal carotid upstroke Resp: Effort & Inspection: normal respiratory effort and able to speak in complete sentences Other: decreased breath sounds globally Cardio: Jugular venous distension: no JVD Rate: regular rate Rhythm: regular rhythm Heart sounds: S1 normal heart sound present, S2 normal heart sound present and no murmurs GI: Inspection: normal to inspection GI Palp: No abdominal tenderness Auscultation: normal bowel sounds Skin: Other: no rash on exposed areas, no cyanosis Neuro: Cranial nerves: Yes Equal, round and reactive pupils present and Yes Normal hearing present Other: alert, oriented, no major focal deficits on gross neurological examination Extrem: Other: no edema, no cyanosis, no major deformities Psych: Appearance: grossly normal Mental Status: mental status grossly normal Objective Data Vital Signs Vital Signs: Vital Signs - 24 hr 05/08/19 14:00 05/08/19 14:05 05/08/19 14:10 Temperature 36.4 C L Pulse Rate 106 H 133 H 128 H Respiratory Rate 20 Blood Pressure 141/84 H Pulse Oximetry 96 86 L 87 L 05/08/19 14:15 05/08/19 14:20 05/08/19 14:28 Temperature Pulse Rate 127 H 119 H 99 Respiratory Rate Blood Pressure Pulse Oximetry 88 L 90 91 05/08/19 15:05 05/08/19 15:42 05/08/19 15:49 Temperature 36.6 C Pulse Rate 121 H 120 H 113 H Respiratory Rate 18 20 20 Blood Pressure 119/63 Pulse Oximetry 97 05/08/19 16:00 05/08/19 19:53 05/08/19 20:00 Temperature 36.3 C L Pulse Rate 128 H 98 81 Respiratory Rate 16 Blood Pressure 129/78 Pulse Oximetry 97 05/08/19 20:02 05/08/19 22:56 05/08/19 22:59 Temperature Pulse Rate 90 66 65 Respiratory Rate 20 Blood Pressure Pulse Oximetry 94 05/08/19 23:00 05/08/19 23:02 05/09/19 00:00 Temperature Pulse Rate 63 57 L Respiratory Rate 20 Blood Pressure Pulse Oximetry 94 05/09/19 02:25 05/09/19 02:29 05/09/19 02:39 Temperature Pulse Rate 71 77 74 Respiratory Rate 18 18 Blood Pressure Pulse Oximetry 95 05/09/19 04:00 05/09/19 04:37 05/09/19 08:00 Temperature 36.6 C Pulse Rate 57 L 68 88 Respiratory Rate 16 Blood Pressure 119/70 Pulse Oximetry 98 05/09/19 09:12 05/09/19 09:32 05/09/19 09:54 Temperature Pulse Rate 79 74 68 Respiratory Rate 20 20 Blood Pressure Pu
--- NOTE | 2019-05-09 15:33 | PM.PNPUL ---
Progress Note: A&P Assessment and Plan (1) Pseudomonas respiratory infection: Code(s): J98.8 - Other specified respiratory disorders; A49.8 - Other bacterial infections of unspecified site Status: Acute Assessment and Plan: - Likely colonization - continue Levaquin 500 mg daily or Ciprofloxacin 500 mg PO bid for additional 3 days (2) COPD (chronic obstructive pulmonary disease): Code(s): J44.9 - Chronic obstructive pulmonary disease, unspecified Status: Acute Assessment and Plan: - No signs of COPD exacerbation - d/c systemic steroids - d/c levalbuterol as this may be exacerbating Afib - pulmicort 0.5 mg bid while in hospital - continue Ipratropium as currently prescribed. - continue Anoro Ellipta ( umeclidium 62.5 mcg/Vilanterol 25 mcg ) 1 puff daily as outpatient once dishcarged. - can discharge home from pulmonary perspespective once Afib is under control. (3) Atrial fibrillation with RVR: Code(s): I48.91 - Unspecified atrial fibrillation Status: Acute Assessment and Plan: Stable and rate controlled. Subjective Date/time seen: 05/09/19 15:33 Interval history: Feels great. No complaints. Question about Levaquin and Sotolol addressed. Try switching to ciprofloxacin 500 mg bid if no interaction with sotolol, if not Levaquin for another three days should not affect his QTc that much. Review of Systems Review of Systems: All systems reviewed & are unremarkable except as noted in HPI and below Exam Const: General: comfortable, no acute distress and in distress Neck: Neck: supple and no JVD Resp: Auscultation: clear to auscultation bilaterally, no crackles, no rales, no rhonchi, no wheezes and diminished lung sounds Cardio: Rate: regular rate Rhythm: regular rhythm Heart sounds: no murmurs GI: GI Palp: Yes Soft to palpation Auscultation: normal bowel sounds Skin: General skin exam: normal color and no rashes or lesions noted Extrem: General: normal to inspection, no edema and no pedal edema Psych: Mental Status: mental status grossly normal Affect: normal affect Objective Data Vital Signs Vital Signs: Vital Signs - 24 hr 05/08/19 15:42 05/08/19 15:49 05/08/19 16:00 Temperature Pulse Rate 120 H 113 H 128 H Respiratory Rate 20 20 Blood Pressure Pulse Oximetry 05/08/19 19:53 05/08/19 20:00 05/08/19 20:02 Temperature 36.3 C L Pulse Rate 98 81 90 Respiratory Rate 16 Blood Pressure 129/78 Pulse Oximetry 97 05/08/19 22:56 05/08/19 22:59 05/08/19 23:00 Temperature Pulse Rate 66 65 Respiratory Rate 20 Blood Pressure Pulse Oximetry 94 94 05/08/19 23:02 05/09/19 00:00 05/09/19 02:25 Temperature Pulse Rate 63 57 L 71 Respiratory Rate 20 Blood Pressure Pulse Oximetry 95 05/09/19 02:29 05/09/19 02:39 05/09/19 04:00 Temperature Pulse Rate 77 74 57 L Respiratory Rate 18 18 Blood Pressure Pulse Oximetry 05/09/19 04:37 05/09/19 08:00 05/09/19 09:12 Temperature 36.6 C Pulse Rate 68 88 79 Respiratory Rate 16 Blood Pressure 119/70 Pulse Oximetry 98 05/09/19 09:32 05/09/19 09:54 05/09/19 12:00 Temperature Pulse Rate 74 68 75 Respiratory Rate 20 20 Blood Pressure Pulse Oximetry 97 05/09/19 14:00 05/09/19 15:04 05/09/19 15:09 Temperature 36.6 C Pulse Rate 80 76 71 Respiratory Rate 20 18 20 Blood Pressure 111/83 Pulse Oximetry 95 Intake/Output Intake/Output: Intake & Output 05/06/19 05/07/19 05/08/19 05/09/19 23:59 23:59 23:59 23:59 Intake Total 1550 1940 1685 900 Output Total 600 675 Balance 950 1265 1685 900 Meds/Results Medications: Active Medications Generic Name Dose Route Start Last Admin Trade Name Freq PRN Reason Stop Dose Admin Acetaminophen 650 mg 05/04/19 19:25 Tylenol Tablet PO Q4H PRN Mild Pain (1-3) or Fever Budesonide 0.5 mg 05/08/19 20:00 05/09/19 09:29 Pulmicort Respule Neb I
[2019-05-09] MEDS: RIVAROXABAN 20 MG TABLET BY MOUTH (17:17)
[2019-05-09] MEDS: FAMOTIDINE 20 MG TABLET PO (21:20)
--- NOTE | 2019-05-09 23:00 | ECG_ITS ---
Measurements Intervals [place] Rate: 71 P: 32 HI: 146 QRS: -23 QRSD: 92 T: 44 QT: 369 QTc: 402 Interpretive Statements SINUS RHYTHM BASELINE ARTIFACT- V1 NORMAL ECG Electronically Signed On 05-10-2019 7:10:42 CDT by Alexi Prince D.O.
[2019-05-10] VITALS (23 sets, daily range): BP systolic 118–129; BP diastolic 62–80; PULSE 64–97; RESP 15–20; TEMP 36.1–36.6; O2SAT 91–100
[2019-05-10] MEDS: IPRATROPIUM BR 0.02% INH SOLN 0.5 MG/2.5 ML VIAL INHALATION ×4 (02:09→20:07)
[2019-05-10 06:04] LABS: Hematocrit 41.2 % (42.0-52.0); Hemoglobin 11.5 g/dL (14.0-18.0); Mean Corpuscular HGB Conc 27.9 g/dl (32-36); Mean Corpuscular Hemoglobin 23.2 pg (26-34); Mean Corpuscular Volume 83.1 fl (80-100); Mean Platelet Volume 10.7 fl (7.4-10.4); Platelet Count Result 180 k/mm3 (150-375); Red Blood Count 4.96 M/mm3 (4.6-6.20); White Blood Count 9.5 K/mm3 (4.5-10.0)
[2019-05-10 06:09] LABS: Blood Urea Nitrogen 38 mg/dL (9-20); Calcium 8.6 mg/dL (8.4-10.2); Carbon Dioxide > 40 mmol/L (22-30); Chloride 100 mmol/L (98-107); Estimated CRCL calculation 66 ml/min; Estimated Glomerular Filt Rate 60; Glucose 74 mg/dL (75-110); Magnesium 2.4 mg/dL (1.6-2.3); Potassium 5.2 mmol/L (3.4-5.0); Sodium 138 mmol/L (137-145)
[2019-05-10] MEDS: FERROUS SULFATE 324 MG TABLET PO (09:00)
[2019-05-10] MEDS: FAMOTIDINE 20 MG TABLET PO ×2 (09:00→20:49)
[2019-05-10] MEDS: ROSUVASTATIN 10 MG TABLET 40 MG PO (09:01)
[2019-05-10] MEDS: SOTALOL HCL 80 MG TABLET PO ×2 (09:01→20:49)
[2019-05-10] MEDS: BUDESONIDE RESPULE NEB 0.5 MG/2 ML AMP INHALATION ×2 (09:27→20:07)
--- NOTE | 2019-05-10 09:36 | PM.IMPN ---
Progress Note: A&P Assessment and Plan (1) Atrial fibrillation with RVR: Code(s): I48.91 - Unspecified atrial fibrillation Status: Acute Assessment and Plan: History of paroxysmal atrial fibrillation on Xarelto and diltiazem. 05/08/2019 around 6:00 a.m. the patient went into atrial fibrillation with rapid ventricular response. Today, Telemetry showed NSR rate 75 with occasional PVCs. Cardiology evaluated the patient and switched him to Sotalol 80 mg Q12hrs. The patient will need to be monitored with serial EKGs prior to each Sotalol dose for QT monitoring for a total of 5 doses. Will continue to monitor the medication while starting Sotalol. I talked to Yvonne Cardiology END TOUCHING MACHINE OPERATOR about the patient also being on Levaquin for Pseudomonas in sputum culture and she recommends us to continue monitoring QT length while on both Sotalol and Levaquin. Will continue monitoring the patient on telemetry and cardiology's input is appreciated (2) Acute exacerbation of chronic obstructive pulmonary disease (COPD): Code(s): J44.1 - Chronic obstructive pulmonary disease with (acute) exacerbation Status: Deleted Assessment and Plan: Patient symptomatically improving, although still requiring oxygen at 2 L again today. Lung exam shows distant lung sounds with no wheezing. Pulmonology evaluated the patient and discontinued his steroid treatment. He was continued on ipratropium breathing treatments q.6 hours and reported to continue taking his Anoro at home. The patient had positive blood cultures showing Pseudomonas and the sidewalk repairer believes this could be a colonization but in the meantime will continue oral Levaquin for a total of 5 days for treatment (#3/5). PEP therapy, mucinex RT assess and treat Home oxygen evaluation completed 05/08/2019 showed he should be on room air at rest but with any activity or exertion he should be on 3 L. Respiratory is working on getting him a portable oxygen concentrator prior to discharge. The patient already has home oxygen concentrator as well as bottles as needed. (3) Normocytic anemia: Code(s): D64.9 - Anemia, unspecified Status: Acute Assessment and Plan: Likely anemia of chronic disease. No signs of acute blood loss. Hgb 11.5. Iron panel shows low stores. Venofer 500 mg IV was given but will continue with daily iron pill Follow up with PCP Monitor H/H Transfuse prn Time Spent With Patient Time with patient: 25 - 35 minutes Subjective Date/time seen: 05/10/19 09:36 Interval history: Patient is a 68 yo M with history of COPD and chronic respiratory failure on 2L of oxygen at night, and EDILSON (does not tolerate a mask) who is here for for COPD exacerbation. Date of service 05/10/2019: The patient reports feeling about the same today. He states he feels like he is at his baseline and he is still on 2L via [place] and we are trying to wean him down as tolerated. He reports his breathing has improved since getting his heart rate under control and placed on Sotalol. He does report shortness of breath with exertion and denies much of a cough. Denies any palpitations, fevers, chills, lightheadedness, dizziness, leg swelling, calf pain, chest pain, nausea, vomiting, abdominal pain or any other symptoms at this time. Review of Systems Review of Systems: All systems reviewed & are unremarkable except as noted in HPI and below Exam Narrative: Exam Narrative: General: 68-year-old man sitting up in bed on his phone. Appears comfortable, on 2 L via nasal cannula. In no acute distress. Skin: No jaundice or cyanosis. Good skin turgor. Neck: Full range of motion. Supple. Respiratory: Decreased breath sounds throughout all lung allison anteriorly and posteriorly. No wheezing noted. No bony chest wall tenderness. Cardiovascular: Heart is regular
--- NOTE | 2019-05-10 11:00 | ECG_ITS ---
Measurements Intervals [place] Rate: 64 P: 27 NC: 141 QRS: -26 QRSD: 90 T: 42 QT: 384 QTc: 397 Interpretive Statements SINUS RHYTHM INCOMPLETE RIGHT BUNDLE BRANCH BLOCK DELAYED PRECORDIAL R/S TRANSITION BORDERLINE ECG Electronically Signed On 05-10-2019 12:57:20 CDT by Alexi Prince D.O.
--- NOTE | 2019-05-10 11:15 | PM.PNCARD ---
Progress Note: A&P Assessment and Plan (1) Atrial fibrillation with RVR: Code(s): I48.91 - Unspecified atrial fibrillation Status: Acute Assessment and Plan: Maintaining normal sinus rhythm. Continue sotalol loading. Twelve lead EKG to check QTc to be done 2 hours after each dose. Parameters for holding sotalol are QTc greater than 500 milliseconds. Continue Xarelto. BMP and magnesium in the morning. Anticipate discharge in the morning if QTc remains stable. (2) COPD (chronic obstructive pulmonary disease): Code(s): J44.9 - Chronic obstructive pulmonary disease, unspecified Status: Acute Assessment and Plan: management as per primary team Additional Plan Plan discussed with Dr. Donis 1125 05/10/2019 Time Spent With Patient Time with patient: less than 15 minutes Subjective Date/time seen: 05/10/19 11:15 Interval history: Follow-up for: Paroxysmal atrial fibrillation, sotalol loading, COPD and chronic respiratory failure on 2L of oxygen at night, and EDILSON (does not tolerate a mask) who is here for for COPD exacerbation. Date of service: 05/10/2019 Subjective: Denied chest discomfort, lightheadedness or palpitations. Shortness of breath is at baseline. Review of Systems Constitutional: Constitutional: Denies fatigue and Denies weakness Eyes: Eyes: Denies blurry vision ENT: Denies dizziness, Reports hearing loss and Denies epistaxis Cardiovascular: Cardiovascular: Denies chest pain, Denies pedal edema, Denies leg edema, Reports lightheadedness ( Only if gets up too quickly) and Denies palpitations Respiratory: Respiratory: Reports dyspnea on exertion ( at baseline) Gastrointestinal: Gastrointestinal: Denies abdominal pain, Denies nausea and Denies vomiting Genitourinary: Genitourinary: Denies hematuria Musculoskeletal: Musculoskeletal: Denies back pain, Denies arthralgias and Denies neck pain Integumentary/Breasts: Skin/Breast: Denies unusual bruising Neurologic: Reports Normal hearing present, Denies abnormal gait and Denies headache(s) Psychiatric: Psychiatric: Denies anxiety and Denies depression Endocrine: Endocrine: Reports no additional endocrine complaints Hematologic/Lymphatic: Hematologic/Lymphatic: Reports no additional hematologic/lymphatic complaints Exam Const: General: comfortable, no acute distress and alert Other: sleeping relatively flat in bed. HENMT: Head: normocephalic and atraumatic Ears: external ears normal and hearing grossly impaired General nose exam: Normal external nose present and no epistaxis Face and sinus: normal facial exam and no ecchymosis Mouth: Yes moist mucous membranes Eyes: Conjunctivae: conjunctivae normal Sclera: sclerae normal Neck: Neck: normal visual inspection, supple and no JVD Other: carotid upstrokes are normal bilaterally with no bruits Resp: Effort & Inspection: normal respiratory effort and able to speak in complete sentences Auscultation: clear to auscultation bilaterally and diminished lung sounds Other: decreased breath sounds globally Cardio: Jugular venous distension: no JVD Rate: regular rate Rhythm: regular rhythm Heart sounds: S1 normal heart sound present, S2 normal heart sound present and no murmurs Peripheral pulses: Peripheral pulses 2+ throughout GI: Inspection: normal to inspection Auscultation: normal bowel sounds Skin: General skin exam: normal color and dry skin Rashes: no rashes Neuro: Cranial nerves: Yes Equal, round and reactive pupils present and Yes hard of hearing Cognition (Neuro): normal cognition Speech: normal speech Gait exam (Neuro): Normal gait present Extrem: General: normal to inspection, no cyanosis and no edema Psych: Appearance: grossly normal Mental Status: mental status grossly normal Objective Data Vital Signs Vital Signs: Vital Signs - 24 hr 05/09/19 12:00 05/09/19 14:00 05/09/19
--- NOTE | 2019-05-10 15:25 | PM.PNPUL ---
Progress Note: A&P Assessment and Plan (1) Pseudomonas respiratory infection: Code(s): J98.8 - Other specified respiratory disorders; A49.8 - Other bacterial infections of unspecified site Status: Acute Assessment and Plan: - Likely colonization - continue Levaquin 500 mg daily or Ciprofloxacin 500 mg PO bid for additional 3 days (2) COPD (chronic obstructive pulmonary disease): Code(s): J44.9 - Chronic obstructive pulmonary disease, unspecified Status: Acute Assessment and Plan: - No signs of COPD exacerbation - d/c systemic steroids - d/c levalbuterol as this may be exacerbating Afib - pulmicort 0.5 mg bid while in hospital - continue Ipratropium as currently prescribed. - continue Anoro Ellipta ( umeclidium 62.5 mcg/Vilanterol 25 mcg ) 1 puff daily as outpatient once dishcarged. - can discharge home from pulmonary perspespective once Afib is under control. (3) Atrial fibrillation with RVR: Code(s): I48.91 - Unspecified atrial fibrillation Status: Acute Assessment and Plan: Stable and rate controlled. Subjective Date/time seen: 05/10/19 15:25 Interval history: Undergoing Sotalol monitoring but awaiting discharge. No pulmonary issues Review of Systems Review of Systems: All systems reviewed & are unremarkable except as noted in HPI and below Exam Const: General: comfortable, no acute distress and in distress Neck: Neck: supple and no JVD Resp: Auscultation: clear to auscultation bilaterally, no crackles, no rales, no rhonchi, no wheezes and diminished lung sounds Cardio: Rate: regular rate Rhythm: regular rhythm Heart sounds: no murmurs GI: GI Palp: Yes Soft to palpation Auscultation: normal bowel sounds Skin: General skin exam: normal color and no rashes or lesions noted Extrem: General: normal to inspection, no edema and no pedal edema Psych: Mental Status: mental status grossly normal Affect: normal affect Objective Data Vital Signs Vital Signs: Vital Signs - 24 hr 05/09/19 16:00 05/09/19 20:00 05/09/19 20:04 Temperature 36.5 C Pulse Rate 70 93 80 Respiratory Rate 18 Blood Pressure 149/60 H Pulse Oximetry 92 05/09/19 20:39 05/09/19 20:42 05/09/19 20:45 Temperature Pulse Rate 83 65 Respiratory Rate 18 18 Blood Pressure Pulse Oximetry 95 05/09/19 21:19 05/09/19 21:35 05/09/19 22:43 Temperature Pulse Rate 65 71 71 Respiratory Rate 18 Blood Pressure Pulse Oximetry 94 94 05/10/19 00:00 05/10/19 02:10 05/10/19 02:13 Temperature Pulse Rate 72 70 70 Respiratory Rate 16 Blood Pressure Pulse Oximetry 91 05/10/19 02:15 05/10/19 04:26 05/10/19 06:00 Temperature 36.6 C Pulse Rate 64 65 80 Respiratory Rate 16 16 Blood Pressure 126/80 Pulse Oximetry 96 05/10/19 08:00 05/10/19 09:00 05/10/19 09:01 Temperature Pulse Rate 97 84 84 Respiratory Rate 18 Blood Pressure 121/62 Pulse Oximetry 96 96 05/10/19 09:20 05/10/19 09:28 05/10/19 09:29 Temperature Pulse Rate 75 78 Respiratory Rate 20 20 Blood Pressure Pulse Oximetry 95 05/10/19 14:00 Temperature 36.1 C L Pulse Rate 80 Respiratory Rate 18 Blood Pressure 129/72 Pulse Oximetry 94 Intake/Output Intake/Output: Intake & Output 05/07/19 05/08/19 05/09/19 05/10/19 23:59 23:59 23:59 23:59 Intake Total 1940 1685 1550 780 Output Total 675 1000 300 Balance 1265 1685 550 480 Meds/Results Medications: Active Medications Generic Name Dose Route Start Last Admin Trade Name Freq PRN Reason Stop Dose Admin Acetaminophen 650 mg 05/04/19 19:25 Tylenol Tablet PO Q4H PRN Mild Pain (1-3) or Fever Budesonide 0.5 mg 05/08/19 20:00 05/10/19 09:27 Pulmicort Respule Neb INHALATION 0.5 mg Q12HRT AXEL Administration Famotidine 20 mg 05/09/19 21:00 05/10/19 09:00 Pepcid PO 20 mg Q12HR AXEL Administration Ferrous Sulfate 324 mg 05/08/19 09:00
[2019-05-10] MEDS: RIVAROXABAN 20 MG TABLET BY MOUTH (17:30)
[2019-05-11] VITALS (15 sets, daily range): BP systolic 107; BP diastolic 63; PULSE 66–123; RESP 16–18; TEMP 36.1; O2SAT 85–98
[2019-05-11] MEDS: IPRATROPIUM BR 0.02% INH SOLN 0.5 MG/2.5 ML VIAL INHALATION ×2 (00:56→08:09)
--- NOTE | 2019-05-11 01:00 | ECG_ITS ---
Measurements Intervals [place] Rate: 67 P: 38 TN: 142 QRS: -29 QRSD: 95 T: 41 QT: 387 QTc: 409 Interpretive Statements SINUS RHYTHM DELAYED PRECORDIAL R/S TRANSITION BORDERLINE ECG Electronically Signed On 05-11-2019 8:40:46 CDT by Alexi Prince D.O.
[2019-05-11 06:13] LABS: Blood Urea Nitrogen 33 mg/dL (9-20); Calcium 8.1 mg/dL (8.4-10.2); Carbon Dioxide 34 mmol/L (22-30); Chloride 103 mmol/L (98-107); Estimated CRCL calculation 78 ml/min; Estimated Glomerular Filt Rate > 60; Glucose 76 mg/dL (75-110); Magnesium 2.3 mg/dL (1.6-2.3); Potassium 4.5 mmol/L (3.4-5.0); Sodium 137 mmol/L (137-145)
[2019-05-11] MEDS: BUDESONIDE RESPULE NEB 0.5 MG/2 ML AMP INHALATION (08:09)
[2019-05-11] MEDS: SOTALOL HCL 80 MG TABLET PO (08:09)
[2019-05-11] MEDS: FERROUS SULFATE 324 MG TABLET PO (08:10)
[2019-05-11] MEDS: ROSUVASTATIN 10 MG TABLET 40 MG PO (08:10)
[2019-05-11] MEDS: FAMOTIDINE 20 MG TABLET PO (08:10)
--- NOTE | 2019-05-11 08:37 | PM.DS ---
DS: Diagnosis Admitting Diagnosis Admitting Diagnosis: Chronic obstructive pulmonary disease with (acute) exacerbation Discharge Diagnosis (1) Atrial fibrillation with RVR: Code(s): I48.91 - Unspecified atrial fibrillation Status: Acute Assessment and Plan: History of paroxysmal atrial fibrillation on Xarelto and diltiazem. 05/08/2019 around 6:00 a.m. the patient went into atrial fibrillation with rapid ventricular response. Today, Telemetry showed NSR rate 74 bpm with occasional PVCs. Cardiology evaluated the patient and switched him to Sotalol 80 mg Q12hrs. The patients serial EKGs after each Sotalol dose for a total of 5 doses have been normal and less than 500. The patient is safe to continue Sotalol per cardiology and have him follow up as an outpatient. I talked to Yvonne Cardiology FRUCTOSE LOADER about the patient also being on Levaquin for Pseudomonas in sputum culture and she recommends us to continue monitoring QT length while on both Sotalol and Levaquin. The patient only has one more dose of Levaquin left. The patient understands and agrees with the plan. (2) Acute exacerbation of chronic obstructive pulmonary disease (COPD): Code(s): J44.1 - Chronic obstructive pulmonary disease with (acute) exacerbation Status: Deleted Assessment and Plan: Patient symptomatically improving, although still requiring oxygen at 2 L again today. Lung exam shows distant lung sounds with no wheezing. Pulmonology evaluated the patient and discontinued his steroid treatment. He was continued on ipratropium breathing treatments q.6 hours and reported to continue taking his Anoro at home. The patient had positive blood cultures showing Pseudomonas and the gravel machine operator believes this could be a colonization but in the meantime will continue oral Levaquin for a total of 5 days for treatment (#4/5). Patient states he has Mucinex at home. Home oxygen evaluation completed 05/08/2019 showed he should be on room air at rest but with any activity or exertion he should be on 3 L. will repeat home oxygen evaluation today to ensure that this is the correct setting since it has been greater than 48 hours. Respiratory is working on getting him a portable oxygen concentrator prior to discharge. The patient already has home oxygen concentrator as well as bottles as needed. (3) Normocytic anemia: Code(s): D64.9 - Anemia, unspecified Status: Acute Assessment and Plan: Likely anemia of chronic disease. No signs of acute blood loss. Iron panel shows low stores. Venofer 500 mg IV was given but will continue with daily iron pill Follow up with PCP DS: Summary Hospital Course Reason for hospitalization: The patient is a 68-year-old man with a history of COPD and EDILSON on 2 L of oxygen at night, who presented to the hospital with increased shortness of breath, low oxygen saturations, productive cough, wheezing and generalized weakness. Initial vitals showed, temperature of 98.9?, blood pressure 124/72, heart rate 108, respiratory rate 20, oxygen saturation 76% on room air. Slight anemia with a hemoglobin 11.5, normal BMP other than slightly elevated CO2 level at 31. Chest x-ray showed no acute cardiopulmonary disease. The patient was admitted into the hospital with acute respiratory failure, COPD exacerbation, with IV Solu-Medrol, DuoNeb treatment. Over few days the patient began to feel better. Decreases IV Solu-Medrol and have pulmonology see the patient. Patient's blood cultures were taken and finalized with no growth. Patient's sputum culture grew Pseudomonas aeruginosa which was treated with 5 days of oral Levaquin. Home oxygen evaluation showed that the patient does not require any oxygen at rest but requires 3 L with exertion. The patient does have a home concentrator as well as bottles that he can w
--- NOTE | 2019-05-11 10:15 | ECG_ITS ---
Measurements Intervals [place] Rate: 69 P: 32 SC: 133 QRS: -20 QRSD: 94 T: 32 QT: 365 QTc: 393 Interpretive Statements SINUS RHYTHM INCOMPLETE RIGHT BUNDLE BRANCH BLOCK DELAYED PRECORDIAL R/S TRANSITION CONSIDER INFERIOR INFARCT, AGE INDETERMINATE BASELINE ARTIFACT- V4-V6 ABNORMAL ECG Electronically Signed On 05-11-2019 10:35:00 CDT by Alexi Prince D.O.
--- NOTE | 2019-05-11 10:57 | PM.PNCARD ---
Progress Note: A&P Assessment and Plan (1) Atrial fibrillation with RVR: Code(s): I48.91 - Unspecified atrial fibrillation Status: Acute Assessment and Plan: Maintaining normal sinus rhythm. No arrhythmias on tele QTc 393 ms this morning after dose #6 (2) COPD (chronic obstructive pulmonary disease): Code(s): J44.9 - Chronic obstructive pulmonary disease, unspecified Status: Acute Assessment and Plan: management as per primary team Additional Plan OK to discharge from a cardiac standpoint See discharge instructions for follow up Plan discussed with Dr. Gagandeep Son 05/11/2019 Subjective Date/time seen: 05/11/19 10:57 Interval history: Follow-up for: Paroxysmal atrial fibrillation, sotalol loading, COPD and chronic respiratory failure on 2L of oxygen at night, and EDILSON (does not tolerate a mask) who is here for for COPD exacerbation. Date of service: 05/11/2019 Subjective: No chest discomfort, lightheadedness or palpitations. Shortness of breath is at baseline. Waiting for home oxygen eval Review of Systems Constitutional: Constitutional: Denies fatigue, Denies headache(s) and Denies weakness Eyes: Eyes: Denies blurry vision ENT: Reports Normal hearing present, Denies dizziness, Denies headache(s), Reports hearing loss, Denies epistaxis and Denies neck pain Cardiovascular: Cardiovascular: Denies chest pain, Denies pedal edema, Denies leg edema, Reports lightheadedness ( Only if gets up too quickly), Denies palpitations and Reports dyspnea on exertion ( at baseline) Respiratory: Respiratory: Reports dyspnea on exertion ( at baseline) Gastrointestinal: Gastrointestinal: Denies abdominal pain, Denies nausea and Denies vomiting Genitourinary: Genitourinary: Denies hematuria Musculoskeletal: Musculoskeletal: Denies abnormal gait, Denies back pain, Denies arthralgias and Denies neck pain Integumentary/Breasts: Skin/Breast: Denies unusual bruising Neurologic: Reports Normal hearing present, Denies abnormal gait, Denies dizziness, Denies headache(s) and Denies weakness Psychiatric: Psychiatric: Denies anxiety and Denies depression Endocrine: Endocrine: Reports no additional endocrine complaints, Denies fatigue and Denies palpitations Hematologic/Lymphatic: Hematologic/Lymphatic: Reports no additional hematologic/lymphatic complaints Exam Const: General: comfortable, no acute distress and alert Other: Laying flat in bed HENMT: Head: normocephalic and atraumatic Ears: external ears normal and hearing grossly impaired General nose exam: Normal external nose present and no epistaxis Face and sinus: normal facial exam and no ecchymosis Mouth: Yes moist mucous membranes Eyes: Conjunctivae: conjunctivae normal Sclera: sclerae normal Pupils: Equal, round and reactive pupils present Neck: Neck: normal visual inspection, supple and no JVD Resp: Effort & Inspection: normal respiratory effort and able to speak in complete sentences Auscultation: clear to auscultation bilaterally Cardio: Jugular venous distension: no JVD Rate: regular rate Rhythm: regular rhythm Heart sounds: S1 normal heart sound present, S2 normal heart sound present and no murmurs Peripheral pulses: Peripheral pulses 2+ throughout GI: Inspection: normal to inspection Auscultation: normal bowel sounds Skin: General skin exam: normal color and dry skin Rashes: no rashes Neuro: Cranial nerves: Yes Equal, round and reactive pupils present, Yes Normal hearing present and Yes hard of hearing Cognition (Neuro): normal cognition Speech: normal speech Gait exam (Neuro): Normal gait present Extrem: General: normal to inspection, no cyanosis and no edema Psych: Appearance: grossly normal Mental Status: mental status grossly normal Objective Data Vital Signs Vital Signs: Vital Signs - 24 hr 05/10/19 12:00 05/10/19 14:00 05/10/19 15:05 [facility]
--- NOTE | 2019-05-11 13:05 | HOMEO2EVAL ---
Home Oxygen Evaluation RC: Home Oxygen (O2) Evaluation Start: 05/11/19 08:42 Freq: ONCE Status: Active Protocol: RPE Activity Type Activity Date Activity User E-Sign Co-Sign Detail Recorded Client Recorded Date Recorded By Document 05/11/19 11:30 AKHIL [id number] 05/11/19 13:05 AKHIL Document 05/11/19 11:32 AKHIL [id number] 05/11/19 13:05 AKHIL Document 05/11/19 11:33 AKHIL [email or web address] 05/11/19 13:05 AKHIL Document 05/11/19 11:35 AKHIL [id number] 05/11/19 13:05 AKHIL Document 05/11/19 11:38 AKHIL [id number] 05/11/19 13:05 AKHIL Document 05/11/19 11:55 AKHIL [id number] 05/11/19 13:05 AKHIL 05/11/19 05/11/19 05/11/19 11:30 11:32 11:33 Home O2 Evaluation Test Phase Resting Exercise Exercise Oxygen Delivery Room Air Room Air Nasal Cannula Oxygen Flow Rate (L/min) 1 Pulse Oximetry (90-100 %) 94 85 L 86 L Pulse Rate (60-100 beats/min) 96 Activity Tolerance Ambulation Distance (feet) Home Oxygen Evaluation Comments Treatment Charges O2 Evaluation 05/11/19 05/11/19 05/11/19 11:35 11:38 11:55 Home O2 Evaluation Test Phase Exercise Exercise Resting Oxygen Delivery Nasal Cannula Nasal Cannula Room Air Oxygen Flow Rate (L/min) 2 3 Pulse Oximetry (90-100 %) 86 L 93 95 Pulse Rate (60-100 beats/min) 123 H Activity Tolerance Good Ambulation Distance (feet) 400 Home Oxygen Evaluation Comments 3L WITH ACTIVITY. NO CHANGE FROM PRIOR EVAL Treatment Charges
--- NOTE | 2019-05-11 13:06 | PCRCNOTE ---
NEW HOME O2 EVAL COMPLETED, NO CHANGED MADE TO O2 NEEDS. 3L WITH ACTIVITY. RN AWARE. PT STATED FAMILY WILL BRING IN TANK FOR D/C HOME. [facility] IS DME. NO OTHER HOME O2 NEEDS AT THIS TIME.
== END 2019-05-11 13:20 | disposition home or self-care (01) | DRG 190 ==
LOC: ANHED 17:54 → ANH3MED 18:47
PROVIDERS: Emergency Medicine; Family Medicine; Nurse Practitioner Adult Health; Physician Assistant; Admitting Provider Internal Medicine; Emergency Provider Emergency Medicine; PCP Family Medicine Adolescent Medicine; Visit Provider Internal Medicine
DX: J44.1 Chronic obstructive pulmonary disease with (acute) exacerbation (principal); J96.21 Acute and chronic respiratory failure with hypoxia; J96.11 Chronic respiratory failure with hypoxia; I48.0 Paroxysmal atrial fibrillation; Z99.81 Dependence on supplemental oxygen; M81.8 Other osteoporosis without current pathological fracture; M19.90 Unspecified osteoarthritis, unspecified site; Z85.51 Personal history of malignant neoplasm of bladder; Z87.442 Personal history of urinary calculi; Z87.440 Personal history of urinary (tract) infections; Z98.49 Cataract extraction status, unspecified eye; Z87.891 Personal history of nicotine dependence; D63.8 Anemia in other chronic diseases classified elsewhere; G47.33 Obstructive sleep apnea (adult) (pediatric)
CPT/HCPCS: 36415; 71046; 80048; 82728; 83540; 83550; 83605; 83735; 85025; 85027; 85055; 87040; 87070; 87077; 87186; 87205; 87804; 93005; 94618; 94640; 94667; 94668; 96365; 96366; 96374; 96375; 96376; 99285; A9270; G0378; J1756; J1956; J2920; J2930; J7050

== ENCOUNTER 2019-08-10 09:22 | Emergency (ER) | payer MEDICARE, SELFPAY ==
--- NOTE | ~2019-08-10 | CT_ITS ---
EXAMINATION: CT brain wo con DATE: 08/10/2019 10:47 INDICATION: Dizziness. TECHNIQUE: Computed tomography (CT) of the head was performed without intravenous contrast. The mA wa s adjusted according to patient size. Iterative reconstruction technique was employed. The dose-lengt h product was 681.00 mGy-cm. COMPARISON: None FINDINGS: There are scattered areas of low attenuation in the cerebral white matter, which is within normal limits for the patient's age. There is no intracranial hemorrhage, acute infarction, or abnorm al intracranial mass lesion. The ventricles are normal in size. There is mild mucosal thickening in t he paranasal sinuses. There are likely changes of ocular lens replacement surgeries. The mastoid air cells are normal. IMPRESSION: 1. Normal aging brain. Reviewed, dictated and finalized at location A. IMPRESSION: 1. Normal aging brain.
--- NOTE | ~2019-08-10 | XR_ITS ---
EXAMINATION: XR chest 2V DATE: 08/10/2019 10:00 INDICATION: Shortness of breath. TECHNIQUE: Frontal and lateral views of the chest were obtained. COMPARISON: Chest 2 views 05/04/2019, chest CT 06/13/2018 FINDINGS: The chest demonstrates clear lungs without pneumonia, pleural effusion, or pneumothorax. Th e heart size is normal. There are prominent paracardial fat pads. There is a stent graft in abdominal aorta. There is mild chronic anterior wedging of multiple thoracic vertebral bodies. IMPRESSION: 1. No acute cardiopulmonary disease. Reviewed, dictated and finalized at location A.
[2019-08-10 09:29] VITALS: BP 124/68; PULSE 87; RESP 20; TEMP 36.6; O2SAT 97
--- NOTE | 2019-08-10 09:35 | ECG_ITS ---
Measurements Intervals [place] Rate: 80 P: 67 SC: 148 QRS: -38 QRSD: 102 T: 32 QT: 391 QTc: 453 Interpretive Statements SINUS RHYTHM LEFT AXIS DEVIATION LOW QRS VOLTAGE IN PRECORDIAL LEADS BORDERLINE R WAVE PROGRESSION, ANTERIOR LEADS BASELINE ARTIFACT- I, II, III, V5 BORDERLINE ECG Electronically Signed On 08-10-2019 9:42:11 CDT by Alexi Prince D.O.
[2019-08-10 09:40] VITALS: O2SAT 99
[2019-08-10 09:52] LABS: Basophils Absolute Auto 0.1 K/mm3 (0.0-0.1); Basophils Percent Auto 0.7 % (0.2-1.2); Eosinophils Absolute Auto 0.3 K/mm3 (0-0.3); Hematocrit 42.2 % (42.0-52.0); Hemoglobin 12.1 g/dL (14.0-18.0); Immature Granulocyte Absolute 0.02 K/mm3 (0.00-0.031); Immature Granulocyte Percent A 0.2 % (0-0.5); Lymphocytes Absolute Auto 1.35 K/mm3 (0.9-3.2); Lymphocytes Percent Auto 16.3 % (18.3-44.2); Mean Corpuscular HGB Conc 28.7 g/dl (32-36); Mean Corpuscular Hemoglobin 24.4 pg (26-34); Mean Corpuscular Volume 85.1 fl (80-100); Mean Platelet Volume 11.5 fl (7.4-10.4); Monocytes Absolute Auto 0.8 K/mm3 (0.1-0.6); Monocytes Percent Auto 9.8 % (2.6-8.5); Neutrophils Absolute Auto 5.8 K/mm3 (1.3-6.7); Platelet Count Result 213 k/mm3 (150-375); Red Blood Count 4.96 M/mm3 (4.6-6.20); Red Cell Distribution Width 16.3 % (11.5-14.5); White Blood Count 8.3 K/mm3 (4.5-10.0)
--- NOTE | 2019-08-10 09:57 | PC.NURSE ---
ERP AT BEDSIDE FOR ASSESSMENT.
[2019-08-10 10:03] LABS: Blood Urea Nitrogen 14 mg/dL (9-20); Calcium 8.6 mg/dL (8.4-10.2); Carbon Dioxide 35 mmol/L (22-30); Chloride 102 mmol/L (98-107); Estimated CRCL calculation 68 ml/min; Estimated Glomerular Filt Rate > 60; Glucose 117 mg/dL (75-110); Potassium 4.4 mmol/L (3.4-5.0); Sodium 138 mmol/L (137-145)
--- NOTE | 2019-08-10 10:11 | ED.SOB ---
HPI - SOB/Dyspnea General Chief Complaint: Shortness of Breath/Dyspnea Stated Complaint: SOB Time Seen by Provider: 08/10/19 09:27 Source: RN notes reviewed History of Present Illness HPI Narrative: Patient presents emergency part from home for dyspnea. Patient states that over the past several days he has been noticing some increased shortness of breath intermittently with exertion. He states that he has a history of COPD and is chronically on 3 L nasal cannula which she wears during the day but was told not to wear during the night. He states that he is also out of his nebulizer machine medication and does not have a rescue inhaler. Patient denies having any fevers or chills chest pain cough shortness of breath at rest abdominal pain nausea vomiting or any other symptoms. He states he is followed by Dr. Joseph for COPD. He states he was admitted to hospital in April 2019 and told he needs a sleep study but secondary to COVID has been unable to obtain this. Patient states he has noted some mild swelling in his legs and states he is currently on Xarelto which she has been taking as prescribed. Patient denies any other symptoms at this time Related Data Home Medications Medication Instructions Recorded Confirmed Xarelto 20 mg DAILY 05/04/19 05/25/19 rosuvastatin 40 mg PO DAILY 05/04/19 05/25/19 Allergies Allergy/AdvReac Type Severity Reaction Status Date / Time No Known Allergies Allergy Unknown Unverified 09/25/18 13:14 Review of Systems Review of Systems: Narrative: Gen.: Denies fevers or chills Eyes: Denies eye pain or visual change ENT: Denies congestion Respiratory: See HPI CV: Denies chest pain or palpitations GI: Denies abdominal pain nausea, emesis or diarrhea Musculoskeletal: Denies back pain or muscle pain Neuro: Denies numbness, tingling, weakness or focal weakness Skin: Denies rash Except as documented, all other systems reviewed and negative [facility] Past Medical History Medical History Adult idiopathic generalized osteoporosis Ankle fracture, left Ankle fracture, right Arthritis Atrial fibrillation Bladder cancer Cataracts, bilateral COPD (chronic obstructive pulmonary disease) Kidney stone Pneumonia UTI (urinary tract infection) Social History Social History Smoking packs per day: 1.5 Smoking cigarettes per day: 30.0 Years smoked: 45 Smoking pack-years: 67.50 Smoking status: Former smoker Tobacco type: cigarettes Second hand tobacco smoke exposure: No Smoking end date: 02/23/16 Alcohol intake: never Substance use: never Gender identity (if verbalized by the patient): Male Spiritual care concerns: No Exam Narrative: Exam Narrative: APPEARANCE: No acute distress, nontoxic, resting in bed EYES: EOMI HEENT: Normocephalic, atraumatic, OMM RESPIRATORY: No respiratory distress Clear to auscultation bilaterally with no rhonchi wheezing or rales. CARDIOVASCULAR: Regular rate and rhythm without murmurs rubs or gallops. ABDOMINAL: Soft, nontender, nondistended, no rebound or guarding MUSCULOSKELETAl: Moves all extremities. No clubbing, cyanosis 2+ edema the bilateral lower extremities NEURO: Awake and alert. Following commands, speech normal, no focal deficits SKIN:: Warm, dry. No rashes lesions or abrasions PSYCHIATRIC: Normal affect/mood, Course Course Emergency Course: Called and discussed with Dr. Joseph. The patient is post to be on his oxygen at all times. Agrees with plan to refill his nebulizer and rescue inhaler Patient states he has no symptoms at this time patient got up and ambulated in the emergency department wearing his normal 3 L nasal cannula with oxygen saturation staying in the upper 90s states he is ready for discharge Discussed with patient results of workup and diagnosis. Discussed need for follow-up with primary care, proper use of medication, and
[2019-08-10 10:16] LABS: Alanine Aminotransferase 11 U/L (4-50); Albumin Level 3.6 g/dL (3.5-5.1); Alkaline Phosphatase 81 U/L (38-126); Aspartate Amino Transferase 14 U/L (17-59); Bilirubin,Total 0.3 mg/dL (0.2-1.3)
[2019-08-10 10:20] LABS: INR 1.4; Partial Thromboplastin Time 33.2 SECONDS (22.3-36.8); Prothrombin Time 16.7 Seconds (11.1-14.7)
[2019-08-10 10:29] LABS: NT Pro B Type Natriuretic Pept 422 PG/ML (5-100); Troponin I < 0.012 ng/mL (0.000-0.034)
[2019-08-10 11:08] VITALS: BP 109/64; PULSE 69; RESP 24; O2SAT 99
[2019-08-10 11:31] LABS: Add Urine Microscopic? YES; Appearance Urine Clear (Clear); Bilirubin Urine Negative (Negative); Blood Urine Negative (Negative); Color Urine Yellow (Yellow); Glucose Urine UA Negative (Negative); Ketones Urine Negative (Negative); Leukocyte Esterase Ur Negative LEU/UL (Negative); Mucus Urine Rare /lpf; Nitrate Urine Negative (Negative); Protein Urine 2+ mg/dL (Negative); RBC Urine 0-2 /hpf (0-2); Squamous Epithelial Cell Urine Occasional /hpf (Few)
--- NOTE | 2019-08-10 11:43 | PC.NURSE ---
PT AMBULATED AT THIS TIME ON HIS AT HOME 3L VIA NC, PT AMBULATED WELL, O2 SATURATION 97-94% WHILE AMBULATING WITH CANE. ERP SHANNON INFORMED.
[2019-08-10 11:50] VITALS: BP 117/68; PULSE 74; RESP 18; O2SAT 97
[2019-08-10 12:46] VITALS: BP 104/84; PULSE 71; RESP 18; O2SAT 97
== END 2019-08-10 12:47 | disposition home or self-care (01) ==
PROVIDERS: Emergency Provider Emergency Medicine; PCP Family Medicine Adolescent Medicine
DX: J44.9 Chronic obstructive pulmonary disease, unspecified (principal); Z99.81 Dependence on supplemental oxygen; I48.91 Unspecified atrial fibrillation; Z79.01 Long term (current) use of anticoagulants; M81.8 Other osteoporosis without current pathological fracture; M19.90 Unspecified osteoarthritis, unspecified site; Z87.440 Personal history of urinary (tract) infections; Z87.442 Personal history of urinary calculi; Z85.51 Personal history of malignant neoplasm of bladder; Z87.891 Personal history of nicotine dependence; R94.31 Abnormal electrocardiogram [ECG] [EKG]; R82.998 Other abnormal findings in urine
CPT/HCPCS: 36415; 70450; 71046; 80048; 80076; 81001; 83880; 84484; 85025; 85610; 85730; 87077; 87086; 87088; 87186; 93005; 99284

== ENCOUNTER 2019-08-14 14:48 | Outpatient (CLI) | payer MEDICARE, SELFPAY ==
--- NOTE | ~2019-08-14 | CT_ITS ---
EXAMINATION: CT chest wo con DATE: 08/14/2019 15:13 INDICATION: Personal history of nicotine dependence, prior smoker with 30 pack year history TECHNIQUE: Computed tomography (CT) of the chest was performed without intravenous contrast. The dose -length product (DLP) was 300.75 mGy-cm. Automated exposure control and iterative reconstruction tech [employer] were employed. COMPARISON: 06/13/2018 FINDINGS: There is moderate emphysema. A new 4 mm nodule is present in the left lower lobe on image 8 4. There is no pleural effusion or pneumothorax. The lungs are free of focal airspace opacities. Ther e is mild left lower lobe atelectasis. The heart size is normal. Calcified coronary artery atheroscle rosis is noted. There are no pathologically enlarged thoracic lymph nodes. A trace pericardial effusi on is noted. There is partially imaged chronic left hydronephrosis. There is moderate thoracic spondy losis. IMPRESSION: 1. Lung-RADS category 3: Probably benign. Followup with noncontrast low-dose chest CT in 6 months is recommended. Reviewed, dictated and finalized at location A. IMPRESSION: 1. Lung-RADS category 3: Probably benign. Followup with noncontrast low-dose est CT in 6 months is recommended.
== END 2019-08-14 14:49 | disposition home or self-care (01) ==
PROVIDERS: PCP Family Medicine Adolescent Medicine; Visit Provider Nurse Practitioner Family
DX: Z12.2 Encounter for screening for malignant neoplasm of respiratory organs (principal); Z87.891 Personal history of nicotine dependence
CPT/HCPCS: 71250

== ENCOUNTER 2019-09-09 11:17 | Emergency (ER) | payer MEDICARE, SELFPAY ==
--- NOTE | ~2019-09-09 | US_ITS ---
EXAMINATION: US venous doppler [facility] DATE: 09/09/2019 14:34 INDICATION: Left lower limb pain and swelling. TECHNIQUE: Grayscale ultrasound images without and with compression and Doppler ultrasound images of the left lower extremity veins were obtained. COMPARISON: Ultrasound 10/06/2018 FINDINGS: The visualized portions of left common femoral vein, profunda (deep) femoral vein, femoral vein, popl iteal vein, peroneal veins, posterior tibial veins, and greater saphenous vein outflow are patent. IMPRESSION: 1. No deep venous thrombosis. Reviewed, dictated and finalized at location A.
[2019-09-09 11:28] VITALS: BP 139/69; PULSE 91; RESP 18; TEMP 36.9; O2SAT 91
[2019-09-09 12:16] VITALS: BP 120/61; PULSE 80; RESP 18; O2SAT 93
[2019-09-09 13:45] LABS: Basophils Absolute Auto 0.1 K/mm3 (0.0-0.1); Basophils Percent Auto 0.7 % (0.2-1.2); Eosinophils Absolute Auto 0.3 K/mm3 (0-0.3); Eosinophils Percent Auto 3.9 % (0-4.4); Hematocrit 40.8 % (42.0-52.0); Hemoglobin 11.5 g/dL (14.0-18.0); Immature Granulocyte Absolute 0.03 K/mm3 (0.00-0.031); Immature Granulocyte Percent A 0.4 % (0-0.5); Lymphocytes Absolute Auto 1.49 K/mm3 (0.9-3.2); Lymphocytes Percent Auto 22.2 % (18.3-44.2); Mean Corpuscular HGB Conc 28.2 g/dl (32-36); Mean Corpuscular Volume 81.4 fl (80-100); Mean Platelet Volume 11.3 fl (7.4-10.4); Monocytes Absolute Auto 0.7 K/mm3 (0.1-0.6); Monocytes Percent Auto 10.3 % (2.6-8.5); Neutrophils Absolute Auto 4.2 K/mm3 (1.3-6.7); Neutrophils Percent Auto 62.5 % (45.5-73.1); Platelet Count Result 201 k/mm3 (150-375); Red Blood Count 5.01 M/mm3 (4.6-6.20); Red Cell Distribution Width 16.4 % (11.5-14.5); White Blood Count 6.7 K/mm3 (4.5-10.0)
[2019-09-09 13:58] LABS: Lactic Acid Reflex 0.6 mmol/L (0.7-2.1)
[2019-09-09 14:00] LABS: INR 1.1; Prothrombin Time 13.5 Seconds (11.1-14.7)
[2019-09-09 14:01] LABS: Partial Thromboplastin Time 29.7 SECONDS (22.3-36.8)
[2019-09-09 14:01] LABS: Blood Urea Nitrogen 12 mg/dL (9-20); Calcium 8.5 mg/dL (8.4-10.2); Carbon Dioxide 31 mmol/L (22-30); Chloride 104 mmol/L (98-107); Estimated CRCL calculation 82 ml/min; Estimated Glomerular Filt Rate > 60; Glucose 87 mg/dL (75-110); Potassium 4.8 mmol/L (3.4-5.0); Sodium 137 mmol/L (137-145)
[2019-09-09 14:07] LABS: NT Pro B Type Natriuretic Pept 258 PG/ML (5-100)
[2019-09-09 14:25] LABS: Erythrocyte Sedimentation Rate 19 mm/hr (0-20)
--- NOTE | 2019-09-09 15:29 | ED.LOWEXIN ---
HPI - Extremity Injury (Lower) General Chief Complaint: Extremity Injury, Lower <Ana Maria Edouard PA-C - Last Filed: 09/09/19 15:40> Stated Complaint: left leg swelling <ALLYSSA Epperson Last Filed: 09/09/19 15:40> Time Seen by Provider: 09/09/19 12:21 <ALLYSSA Epperson Last Filed: 09/09/19 15:40> Source: patient <ALLYSSA Epperson Last Filed: 09/09/19 15:40> Mode of arrival: ambulatory <ALLYSSA Epperson Last Filed: 09/09/19 15:40> Limitations: no limitations <ALLYSSA Epperson Last Filed: 09/09/19 15:40> History of Present Illness HPI Narrative: This is a 69-year-old male that presents the emergency department for left lower extremity swelling x3 days. No known injury or trauma. Reports it started in the foot and has went into the calf and lower leg. Denies fever, chest pain, shortness of breath, leg pain, or erythema. <ALLYSSA Epperson Last Filed: 09/09/19 15:40> Related Data Home Medications: Home Medications Medication Instructions Recorded Confirmed Xarelto 20 mg DAILY 05/04/19 05/25/19 rosuvastatin 40 mg PO DAILY 05/04/19 05/25/19 <ALLYSSA Epperson Last Filed: 09/09/19 15:40> Allergies/Adverse Reactions: Allergies Allergy/AdvReac Type Severity Reaction Status Date / Time No Known Allergies Allergy Unknown Verified 09/09/19 11:30 <ALLYSSA Epperson Last Filed: 09/09/19 15:40> Review of Systems Review of Systems: Narrative: CONSTITUTIONAL: Denies fever CARDIOVASCULAR: Reports edema. Denies chest pain RESPIRATORY: Denies dyspnea. SKIN: Denies rash MUSCULOSKELETAL: Denies myalgia. NEUROLOGIC: Denies numbness <ALLYSSA Epperson Last Filed: 09/09/19 15:40> All systems reviewed & are unremarkable except as noted in HPI and below <Ana Maria Edouard PA-C - Last Filed: 09/09/19 15:40> [facility] Social History Social History: Social History Smoking packs per day: 1.5 Smoking cigarettes per day: 30.0 Years smoked: 45 Smoking pack-years: 67.50 Smoking status: Former smoker Tobacco type: cigarettes Second hand tobacco smoke exposure: No Smoking end date: 02/23/16 Alcohol intake: never Substance use: never Gender identity (if verbalized by the patient): Male Spiritual care concerns: No <Ana Maria Edouard PA-C - Last Filed: 09/09/19 15:40> Exam Narrative: Exam Narrative: GENERAL: Well-appearing, well-nourished, and in no acute distress. HEAD: Normocephalic, atraumatic. EYES: EOMI. CHEST: Clear to auscultation. No respiratory distress. No wheezes rales or rhonchi HEART: Regular rate and rhythm. No murmur heard. Normal peripheral pulses. EXTREMITIES: Normal range of motion. 1+ pitting edema to the left lower extremity. No erythema. DP pulse obtained by Doppler SKIN: Warm, dry, no rash. NEURO: No focal deficits. Alert and oriented x3. PSYCH: Normal mood and affect <Ana Maria Edouard PA-C - Last Filed: 09/09/19 15:40> Course [employer]/PA Physician Supervision The patient is extremity is warm and well-perfused. It is nontender. There are no cellulitic changes, evidence of cellulitis, there is no abscess. There is no deformity. There is no pitting edema. No evidence of osseous abnormality or DVT. Clinically, there is there does not appear to be an ischemic limb given it is warm and well-perfused with good capillary refill. This may be secondary to venous stasis type changes, no evidence of acute infection. Patient will be advised close PCP follow-up, and strict return precautions. For this patient encounter, I reviewed the [employer] or PA documentation, treatment plan, and medical decision making; and I had [id number] time with this patient. <Freya Schaeffer MD - Last Filed: 09/09/19 15:46> Consultations Consultation #1: Spoke with patient's primary adoption worker, Dr. Gramajo, about work-up. Patient will follow-up wit
== END 2019-09-09 16:44 | disposition home or self-care (01) ==
PROVIDERS: Physician Assistant; Emergency Provider Emergency Medicine; PCP Family Medicine Adolescent Medicine
DX: R60.0 Localized edema (principal); Z87.891 Personal history of nicotine dependence; Z79.01 Long term (current) use of anticoagulants
CPT/HCPCS: 36415; 80048; 83605; 83880; 85025; 85610; 85652; 85730; 86140; 93971; 99284

== ENCOUNTER 2019-12-04 02:29 | Outpatient (CLI) | payer MEDICARE, SELFPAY ==
[2019-12-04 18:16] LABS: SARS-CoV-2 RNA PCR Negative
== END 2019-12-04 02:30 | disposition home or self-care (01) ==
LOC: ANHCOVIDDT 02:29
PROVIDERS: Internal Medicine Critical Care Medicine; PCP Family Medicine Adolescent Medicine; Visit Provider Nurse Practitioner Family
DX: Z01.812 Encounter for preprocedural laboratory examination (principal); Z20.828 Contact with and (suspected) exposure to other viral communicable diseases
CPT/HCPCS: 87635; C9803; U0003

== ENCOUNTER 2019-12-06 08:18 | Outpatient (CLI) | payer MEDICARE, SELFPAY ==
--- NOTE | 2019-12-27 13:57 | WPDSLEEPSTUD ---
Sleep Study Date of Study: 12/06/19 Ordering Provider: Malik Pettit NP Interpreting Physician: Earlene Joseph MD Sleep Study Type: Polysomnogram Height: 1.83 m Weight: 102.058 kg Body Mass Index: 30.5 Neck Circumference: 45.72 cm [place]: 11 Reason for Sleep Study history of obstructive sleep apnea syndrome on CPAP, stop using it due to his sore throat, requesting to go back on CPAP CPAP titration September 2016 showed 14 cm water pressure optimal setting, AHI was 6, minimum saturation 86%, average saturation 90%. I do not have access to this report currently. Sleep History Pedro Angelo is a 69-year-old man with history of severe COPD and chronic respiratory failure, on 3 L with exertion and 2 L with sleep. He has atrial fibrillation and hypertension. He has a history of obstructive sleep apnea syndrome and his last CPAP titration September 2016 showed an optimal pressure 14 cm. His AHI was 6 with a minimum saturation of 86%. He stopped using it due to a sore throat. He has had problems controlling his atrial fibrillation. He has been off Pap therapy for year and a half to 2 years. He is on Medicare and therefore needs an in-lab split night study. He lost his original machine. He is using oxygen at night. He has COPD and uses oxygen at home at 3 L / minute. 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 He frequently snores. He occasionally has trouble sleeping with a cold. He rarely wakes up gasping for breath at night. He frequently has breathing problems at night observed by others. He does not sweat excessively at night. He rarely notices his heart pounding or beating irregularly in [place]. He occasionally falls asleep during the day, rarely involuntarily never while driving. He does not fall asleep during physical effort. He does not have loss of muscle tone was strong emotion. He does not have daytime difficulties due to excessive sleepiness. 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 He does not feel paralyzed on waking or falling asleep. He rarely has vivid dreamlike scenes upon awakening or falling asleep. He has never for a to go to sleep. He does not have nightmares. He occasionally remembers his dreams. He rarely has racing thoughts. Does not feel sad, depressed or anxious. He rarely has muscular tension. He does not notice part of his body jerking and he does not kick at night. He rarely has crawling and aching feelings in his legs. He does not have leg pain at night. He does not have morning jaw pain. He does not grind his teeth during sleep. He rarely is bothered by pain during the day, rarely is awakened by pain at night. He occasionally wakes up feeling stiff in the morning with sore achy muscles. Rarely wakes up with pain in the neck and spine joints. He has fatigue and insomnia. His normal bedtime is between 11:00 p.m. and midnight, sometimes takes quite a while to fall asleep. He wakes up to urinate at night. He stays awake on average 20 minutes when he wakes up. He wakes in the morning at 4:00 a.m.. He is getting only 5-6 hours of sleep at night. He does take naps. A short nap may be refreshing. He says that he feels good most of the time on awakening. COUNTS INCLUDE 234 BEDS AT THE [facility] Past Medical History Medical History (Updated 12/27/19 @ 14:23 by Earlene Joseph MD) Adult idiopathic generalized osteoporosis Ankle fracture, left Ankle fracture, right Arthritis Atrial fibrillation Atrial fibrillation with RVR Bladder cancer Cataracts, bilateral COPD (chronic obstructive pulmonary disease) Kidney stone Obstructive sleep apnea Pneumonia Tobacco abuse UTI (urinary tract infection) Surgical History Surgical History H/O vascular surgery Stent in RLE S/P AAA repair S/P cataract surgery Family History Family History Father Family history of obes
[2019-12-27 14:27] VITALS: BMI 30.5
== END 2019-12-06 08:19 | disposition home or self-care (01) ==
LOC: ANHCSM 08:30
PROVIDERS: PCP Family Medicine Adolescent Medicine; Visit Provider Nurse Practitioner Family
DX: G47.33 Obstructive sleep apnea (adult) (pediatric) (principal)
CPT/HCPCS: 95810

== ENCOUNTER 2020-04-30 11:59 | Outpatient (CLI) | payer MEDICARE, SELFPAY ==
--- NOTE | ~2020-04-30 | CT_ITS ---
EXAMINATION: CT diagnostic chest wo con DATE: 04/30/2020 12:19 INDICATION: Solitary pulmonary nodule TECHNIQUE: Computed tomography (CT) of the chest was performed without intravenous contrast. The dose -length product (DLP) was 169.46 mGy-cm. Automated exposure control and iterative reconstruction tech nique were employed. COMPARISON: 08/14/2019 FINDINGS: A stable 4 mm nodule is present in the left lower lobe on image 83. No new pulmonary nodule s are identified. There is moderate emphysema. No pleural effusion or pneumothorax is present. The mili ngs are free of focal airspace opacities. Calcified coronary artery atherosclerosis is noted. No path ologically enlarged thoracic lymph nodes are identified. The heart size is normal. There is moderate thoracic spondylosis. Partially imaged chronic left hydronephrosis is again noted. IMPRESSION: 1. Stable left lower lobe nodule, most consistent with old granulomatous disease. 2. Moderate emphysema. Reviewed, dictated and finalized at location A. COUNSELOR IMPRESSION: 1. Stable left lower lobe nodule, most consistent with old granulomatous diseas e. 2. Moderate emphysema.
== END 2020-04-30 12:00 | disposition home or self-care (01) ==
PROVIDERS: PCP Family Medicine Adolescent Medicine; Visit Provider Nurse Practitioner Family
DX: R91.1 Solitary pulmonary nodule (principal); J43.9 Emphysema, unspecified
CPT/HCPCS: 71250

== ENCOUNTER 2020-07-02 13:35 | Inpatient (IN) | payer MEDICARE, SELFPAY ==
[2020-07-02] VITALS (32 sets, daily range): BP systolic 111–152; BP diastolic 48–78; PULSE 67–102; RESP 12–21; TEMP 36–36.9; O2SAT 96–100; BMI 30.6
--- NOTE | ~2020-07-02 | XR_ITS ---
EXAMINATION: XR chest 2V DATE: 07/02/2020 14:02 INDICATION: Shortness of breath. TECHNIQUE: Frontal and lateral views of the chest were obtained. COMPARISON: Chest 2 views 08/10/2019, chest CT 04/30/2020 FINDINGS: There is a small left pleural effusion. There is mild atelectasis at left lung base. No pne umothorax. The heart size is normal. There is a stent graft in abdominal aorta. IMPRESSION: 1. Small left pleural effusion. Reviewed, dictated and finalized at location B.
--- NOTE | 2020-07-02 13:53 | ECG_ITS ---
Measurements Intervals [place] Rate: 70 P: 23 [place]: 142 QRS: -4 QRSD: 98 T: 27 QT: 398 QTc: 431 Interpretive Statements SINUS RHYTHM INCOMPLETE RIGHT BUNDLE BRANCH BLOCK LOW QRS VOLTAGE IN PRECORDIAL LEADS BORDERLINE ECG Electronically Signed On 07-02-2020 17:52:12 CDT by Alexi Prince D.O.
[2020-07-02 14:14] LABS: Anion Gap 1 mmol/L (8-16); Blood Urea Nitrogen 11 mg/dL (9-20); Calcium 8.2 mg/dL (8.4-10.2); Carbon Dioxide 36 mmol/L (22-30); Chloride 103 mmol/L (98-107); Estimated CRCL calculation 59 ml/min; Estimated Glomerular Filt Rate > 60; Glucose 91 mg/dL (75-110); Potassium 3.9 mmol/L (3.4-5.0); Sodium 140 mmol/L (137-145)
[2020-07-02 14:39] LABS: Basophils Absolute Auto 0.1 K/mm3 (0.0-0.1); Basophils Percent Auto 0.8 % (0.2-1.2); Eosinophils Absolute Auto 0.2 K/mm3 (0-0.3); Eosinophils Percent Auto 2.5 % (0-4.4); Hematocrit 23.3 % (42.0-52.0); Immature Granulocyte Absolute 0.03 K/mm3 (0.00-0.031); Immature Granulocyte Percent A 0.4 % (0-0.5); Lymphocytes Absolute Auto 1.49 K/mm3 (0.9-3.2); Lymphocytes Percent Auto 20.6 % (18.3-44.2); Mean Corpuscular Hemoglobin 18.7 pg (26-34); Mean Corpuscular Volume 77.9 fl (80-100); Mean Platelet Volume 10.5 fl (7.4-10.4); Monocytes Absolute Auto 0.6 K/mm3 (0.1-0.6); Monocytes Percent Auto 7.8 % (2.6-8.5); Neutrophils Absolute Auto 4.9 K/mm3 (1.3-6.7); Neutrophils Percent Auto 67.9 % (45.5-73.1); Platelet Count Result 193 k/mm3 (150-375); Red Blood Count 2.99 M/mm3 (4.6-6.20); Red Cell Distribution Width 18.9 % (11.5-14.5); White Blood Count 7.2 K/mm3 (4.5-10.0)
[2020-07-02 14:47] LABS: Hemoglobin 5.6 g/dL (14.0-18.0)
[2020-07-02 14:48] LABS: Hypochromasia 2+ (NORMAL); Ovalocytes 1+ (NORMAL); Platelet Estimate Adequate (Adequate)
[2020-07-02 14:49] LABS: Stomatocytes 1+ (NORMAL)
[2020-07-02 15:50] LABS: Iron 13 ug/dL (49-181)
[2020-07-02 16:06] LABS: Percent Iron Saturation 3 % (20-50)
--- NOTE | 2020-07-02 16:07 | ED.SOB ---
HPI - SOB/Dyspnea General Chief Complaint: Shortness of Breath/Dyspnea Stated Complaint: sob, dizzy Time Seen by Provider: 07/02/20 15:10 History of Present Illness HPI Narrative: Patient is a 70-year-old male who presents ER with shortness of breath. Worsening over the last week. Different than his typical COPD shortness of breath. Is been taken some Mucinex which has not helped him. No fevers or chills or sweats. Denies dark black stools or diarrhea. He does have history of hemorrhoids reports scant blood after bowel movement today. Patient reports some dizziness when going from sitting to standing. No loss of consciousness. Related Data Home Medications Medication Instructions Recorded Confirmed Xarelto 20 mg DAILY 05/04/19 07/02/20 rosuvastatin 40 mg PO DAILY 05/04/19 07/02/20 albuterol sulfate 2.5 mg INHALATION QID PRN 07/02/20 07/02/20 Allergies Allergy/AdvReac Type Severity Reaction Status Date / Time No Known Allergies Allergy Unknown Verified 05/16/20 09:24 Review of Systems Review of Systems: All systems reviewed & are unremarkable except as noted in HPI and below Constitutional: Constitutional: Denies chills, Reports fatigue, Denies fever(s) and Reports weakness ENT: Reports nasal congestion and Denies sore throat Cardiovascular: Cardiovascular: Denies chest pain, Denies rapid heart rate and Denies radiating jaw, neck or arm pain Respiratory: Respiratory: Reports cough, Reports dyspnea and Denies wheezing Gastrointestinal: Gastrointestinal: Denies abdominal pain, Denies heartburn, Denies diarrhea, Denies nausea and Denies vomiting PMF Past Medical History Medical History Adult idiopathic generalized osteoporosis Ankle fracture, left Ankle fracture, right Arthritis Atrial fibrillation Atrial fibrillation with RVR Bladder cancer Cataracts, bilateral COPD (chronic obstructive pulmonary disease) Kidney stone Obstructive sleep apnea Pneumonia Tobacco abuse UTI (urinary tract infection) Surgical History Surgical History H/O vascular surgery Stent in RLE S/P AAA repair S/P cataract surgery Family History Family History Father Family history of obesity Family history of cardiovascular disease Family history of coronary artery disease Sibling Family history of congenital heart disease, Onset Age: 60 Family history of respiratory disorder, Onset Age: 73 Mother Family history of primary malignant neoplasm of liver, Onset Age: 62 Social History Social History Smoking packs per day: 1.5 Smoking cigarettes per day: 30.0 Years smoked: 43 Smoking pack-years: 64.50 Smoking status: Former smoker Tobacco type: cigarettes Second hand tobacco smoke exposure: No Smoking end date: 02/23/16 Alcohol intake: never Substance use: never Substance use type: does not use Gender identity (if verbalized by the patient): Male Sexual Orientation (if Verbalized by the Patient): Straight or Heterosexual Spiritual care concerns: No Exam Narrative: Exam Narrative: GENERAL: Well-appearing, well-nourished, and in no acute distress. HEAD: Normocephalic, atraumatic. 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 ENT: Mucous membranes moist. CHEST: Clear to auscultation. No respiratory distress. HEART: Regular rate and rhythm. Normal peripheral pulses. ABDOMEN: Soft, nontender, nondistended, normal appearing stool on NORI that is guaiac positive. EXTREMITIES: Normal range of motion. No edema. SKIN: Warm, dry, no rash. NEURO: Alert and oriented x3. PSYCH: Normal mood and affect. Course Course Emergency Course: Admit to hospitalist service. Will have GI consulted. Patient received 2 units of blood. Vital Signs Vital signs:
[2020-07-02 16:32] LABS: Ferritin 5.46 ng/mL (11.1-264)
[2020-07-02] MEDS: SODIUM CHLORIDE 0.9% IV 250 ML 30 ML IV CONT (16:40)
[2020-07-02] MEDS: TUBING, BLOOD SET 1 EACH XX (16:40)
[2020-07-02 17:11] LABS: Folic Acid 8.9 ng/mL (2.76->20)
--- NOTE | 2020-07-02 18:09 | ADMGEN ---
This patient, Pedro Angelo, was admitted to Medical Room -. Patient/family oriented to hospital policies and general routines including ID bracelet, bed and alarms, visiting hours, pain management, procedures, bathroom and other care routines, personal items, smoking policy, room service/diet, and visiting hours. Information on how to activate the Rapid Response Team has been discussed. Patient/Family are encouraged to report perceived risks to care and to ask questions if they do not understand what they are told or what they should do.
--- NOTE | 2020-07-02 20:26 | PM.IMHP ---
H&P: HPI History of Present Illness Date/Time: 07/02/20 20:26Marci is a 70-year-old male patient who has a history of atrial fibrillation and has been on Xarelto for at least the last 3 years. The patient stated that he had gone and AFib when he had pneumonia several years ago and is for sees a where he has not been back in AFib. The patient has been taking Xarelto without any problems for the last 3 years. The patient stated that he does have hemorrhoids and that he does have occasional blood when he wipes. The patient stated that he follows with his scada operator as scheduled and was on a months worth of iron and the prescription ran out. He is no longer taking any iron. The patient has COPD and is chronically on oxygen 2 L per nasal cannula and he stated that he is always short of breath. 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 Has been getting worse over the last week. The patient took some Mucinex that is not helping. He had no fever chills. He said occasionally he notices that his hemorrhoids bleed. He had a scant amount of blood after bowel movement today. He has been getting dizzy when he stands up from a sitting position. He did not lose any consciousness. The patient's hemoglobin was 5.6 today. His last known hemoglobin was 11.5 on 09/09/2019. Chest x-ray was read as Small left pleural effusion. he has not had a colonoscopy in many years. The patient stated that he had bladder cancer 2 times in the past but has not noticed any blood in his urine. GI has been consulted. The patient is going to get 2 units packed red blood cells. Patient is being admitted to inpatient services on 07/02/2020. Chief Complaint: Shortness of breath Review of Systems Review of Systems: All systems reviewed & are unremarkable except as noted in HPI and below Constitutional: Constitutional: Reports as per HPI and Reports no additional constitutional complaints Eyes: Eyes: Reports as per HPI and Reports no additional eye complaints ENT: Reports system reviewed and no additional complaints, except as documented and Reports Normal hearing present Cardiovascular: Cardiovascular: Reports no additional cardiovascular complaints Respiratory: Respiratory: Reports no additional respiratory complaints and Reports no additional respiratory complaints Gastrointestinal: Gastrointestinal: Reports as per HPI and Reports no additional gastrointestinal complaints Musculoskeletal: Musculoskeletal: Reports no additional musculoskeletal complaints Integumentary/Breasts: Skin/Breast: Reports system reviewed and no additional complaints, except as docu and Reports as per HPI Neurologic: Reports system reviewed and no additional complaints, except as documented, Reports as per HPI and Reports Normal hearing present Psychiatric: Psychiatric: Reports no additional psychiatric complaints and Reports as per HPI Endocrine: Endocrine: Reports no additional endocrine complaints Hematologic/Lymphatic: Hematologic/Lymphatic: Reports no additional hematologic/lymphatic complaints Allergic/Immunologic: Allergic/Immunologic: Reports no additional allergic/immunologic complaints [facility] Past Medical History Medical History (Updated 07/02/20 @ 20:47 by Sandra Otoole NP) Adult idiopathic generalized osteoporosis Ankle fracture, left Ankle fracture, right Arthritis Atrial fibrillation Atrial fibrillation with RVR Bladder cancer Surgery plus chemotherapy Cataracts, bilateral COPD (chronic obstructive pulmonary disease) Hyperlipidemia Kidney stone Obstructive sleep apnea Intolerant of CPAP machine Pneumonia Tobacco abuse UTI (urinary tract infection) Surgical History Surgical History (Updated 07/02/20 @ 20:40 by Sandra Otoole NP) H/O cystoscopy Excision of bladder cancer x2 H/O vascular surgery Stent in RLE History of kidney surgery Due to large kidney stone S/P AAA repair S/P cataract surgery Right eye pupil irregular shap
[2020-07-02] MEDS: SOTALOL HCL 80 MG TABLET PO (20:59)
[2020-07-03] VITALS (20 sets, daily range): BP systolic 106–129; BP diastolic 41–83; PULSE 58–98; RESP 16–20; TEMP 36.1–36.6; O2SAT 98–100
[2020-07-03 03:01] LABS: Hematocrit 27.6 % (42.0-52.0); Hemoglobin 7.2 g/dL (14.0-18.0)
[2020-07-03 03:09] LABS: Alkaline Phosphatase 56 U/L (38-126); Anion Gap 1 mmol/L (8-16); Aspartate Amino Transferase 15 U/L (17-59); Bilirubin,Total 0.4 mg/dL (0.2-1.3); Blood Urea Nitrogen 12 mg/dL (9-20); Calcium 8.1 mg/dL (8.4-10.2); Carbon Dioxide 34 mmol/L (22-30); Chloride 104 mmol/L (98-107); Estimated CRCL calculation 81 ml/min; Estimated Glomerular Filt Rate > 60; Glucose 90 mg/dL (75-110); Magnesium 2.1 mg/dL (1.6-2.3); Potassium 4.2 mmol/L (3.4-5.0); Sodium 139 mmol/L (137-145)
[2020-07-03 03:21] LABS: Alanine Aminotransferase < 6 U/L (4-50)
[2020-07-03] MEDS: SOTALOL HCL 80 MG TABLET PO ×2 (08:35→20:17)
[2020-07-03] MEDS: PANTOPRAZOLE SODIUM IV 40 MG VIAL IV PUSH ×2 (08:35→20:17)
[2020-07-03] MEDS: ROSUVASTATIN 10 MG TABLET 40 MG PO (08:36)
[2020-07-03 13:38] LABS: Hematocrit 30.7 % (42.0-52.0); Hemoglobin 7.9 g/dL (14.0-18.0)
--- NOTE | 2020-07-03 16:59 | WPDGICN ---
Assessment and Plan Assessment and plan (1) Rectal bleeding: Code(s): K62.5 - Hemorrhage of anus and rectum Status: Acute Assessment and Plan: he neved had scopes we need to do egd and colonoscopy- differential include pud but also malignancy, avm, diverticular bleed, etc (this is in setting of blood thinners) I would like to wait another day to keep holding xarelto another extra day- egd and colon Wednesday (2) Symptomatic anemia: Code(s): D64.9 - Anemia, unspecified Status: Acute Assessment and Plan: improved after blood transfusion egd and colon Wednesday keep holding xarelto (3) Chronic hypoxemic respiratory failure: Code(s): J96.11 - Chronic respiratory failure with hypoxia Status: Acute Assessment and Plan: chronic (4) COPD (chronic obstructive pulmonary disease): Code(s): J44.9 - Chronic obstructive pulmonary disease, unspecified Status: Acute (5) 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 Also his ex- noted that patient has not been eating much last few weeks, also more fatigue and tired than usual, even missed family gathering because not feeling like doing anything. Last 2 days noted brb in stool. He has been getting dizzy when he stands up from a sitting position. He did not lose any consciousness. The patient's hemoglobin was 5.6 and received blood transfusion. Never had scopes. Review of Systems Constitutional: Constitutional: Reports fatigue Eyes: Eyes: Reports no additional eye complaints ENT: Reports Normal hearing present Cardiovascular: Cardiovascular: Reports no additional cardiovascular complaints Respiratory: Respiratory: Reports dyspnea on exertion Gastrointestinal: Gastrointestinal: Reports hematochezia and Denies nausea Genitourinary: Genitourinary: Reports no additional male genitourinary complaints Musculoskeletal: Musculoskeletal: Reports no additional musculoskeletal complaints Integumentary/Breasts: Skin/Breast: Reports system reviewed and no additional complaints, except as docu Neurologic: Reports system reviewed and no additional complaints, except as documented Psychiatric: Psychiatric: Reports no additional psychiatric complaints [facility] Past Medical History Medical History (Updated 07/03/20 @ 17:12 by Lloyd Carreno MD) Adult idiopathic generalized osteoporosis Ankle fracture, left Ankle fracture, right Arthritis Atrial fibrillation Atrial fibrillation with RVR Bladder cancer Surgery plus chemotherapy Cataracts, bilateral COPD (chronic obstructive pulmonary disease) 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 Hyperlipidemia Kidney stone Obstructive sleep apnea Intolerant of CPAP machine Pneumonia Rectal bleeding Symptomatic anemia Tobacco abuse UTI (urinary tract infection) Surgical History Surgical History (Updated 07/02/20 @ 20:40 by Sandra Otoole NP) H/O cystoscopy Excision of bladder cancer x2 H/O vascular surgery Stent in RLE History of kidney surgery Due to large kidney stone S/P AAA repair S/P cataract surgery Right eye pupil irregular shaped due to surgery Family History Family History Father Family history of obesity Family history of cardiovascular disease Family history of coronary artery disease Sibling Family history of congenital heart disease, Onset Age: 60 Family history of respiratory disorder, Onset Age: 73 Mother Family history of primary malignant neoplasm of liver, Onset Age: 62 [place]
--- NOTE | 2020-07-03 17:35 | PM.IMPN ---
Progress Note: A&P Assessment and Plan (1) Occult GI bleeding: Code(s): R19.5 - Other fecal abnormalities Status: Acute Assessment and Plan: Patient presents with a hemoglobin of 5.6. He is weak and dizzy but overall tolerating this very well to suggest that this is been a slow blood loss. He is guaiac-positive in the ED. Patient was transfused and repeat hemoglobin is 7.9. Continue H&H every 6 hours. GI has been consulted. Transfuse as needed. Xarelto on hold. Start Protonix. (2) Acute blood loss anemia: Code(s): D62 - Acute posthemorrhagic anemia Status: Acute Assessment and Plan: Hemoglobin 5.6. Iron studies consistent with iron deficiency anemia. He was transfused 2 units of packed red blood cells and hemoglobin has climbed to 7.9. Continue to monitor. Workup to determine etiology of blood loss. (3) EDILSON and COPD overlap syndrome: Code(s): G47.33 - Obstructive sleep apnea (adult) (pediatric); J44.9 - Chronic obstructive pulmonary disease, unspecified Status: Acute Assessment and Plan: The patient is intolerant to NIV. He is on chronic home O2 at 2 L. Currently stable at this rate. Continue with nebulizer treatments prn and his inhaler. (4) Atrial fibrillation: Qualifiers: Atrial fibrillation type: unspecified Qualified Code(s): I48.91 - Unspecified atrial fibrillation Code(s): I48.91 - Unspecified atrial fibrillation Status: Acute Assessment and Plan: The patient is on sotalol to maintain NSR. Xarelto is on hold at this time due to the GI bleed. Contineu tele. (5) Hyperlipidemia: Code(s): E78.5 - Hyperlipidemia, unspecified Status: Chronic Assessment and Plan: LFTs normal. Continue with patient's rosuvastatin. (6) DVT prophylaxis: Code(s): Z29.9 - Encounter for prophylactic measures, unspecified Status: Acute Assessment and Plan: SCDs Subjective Date/time seen: 07/03/20 17:35 Interval history: 70yo male with AFib on Xarelto and chronic respiratory failure from COPD on 2L NC chronically here for weakness and dizziness and found to be profoundly anemic. Patient feels better after the transfusion. He has been noticing increasing pedal edema recently. He has been short of breath over the past many weeks and he felt that this was related to his COPD worsening. He denies any abdominal pain. No chest pain. He has never had a colonoscopy. His diet overall is poor. He was on iron started last year but no further workup was performed at that time. He states he ran out of the iron few months ago. No gross blood loss in the stool or urine that he is aware of. Exam Narrative: Exam Narrative: AF 97.6 124/58 70 18 100% 2L Gen - NARD sittin gu pin chair Chest -minor bibasilar inspiratory rhonchi with faint distant expiratory wheezes. Normal respiratory rate CV - RRR S1/S2. Telemetry showing no significant dysrhythmias Abd - Soft, NT/ND, Positive BS Ext -trace pedal edema Psych - Nml mood and affect Skin - Warm and dry Objective Data Vital Signs Vital Signs: Vital Signs - 24 hr 07/02/20 17:45 07/02/20 18:23 07/02/20 18:45 Temperature 97.0 F L 97.1 F L Pulse Rate 85 75 Respiratory Rate 18 18 Blood Pressure 152/58 H 121/56 L Pulse Oximetry 96 96 100 07/02/20 18:59 07/02/20 20:00 07/02/20 20:38 Temperature 96.8 F L 96.9 F L Pulse Rate 79 72 71 Respiratory Rate 16 16 16 Blood Pressure 120/55 L 117/59 L Pulse Oximetry 100 100 100 07/02/20 20:59 07/02/20 21:00 07/02/20 21:15 Temperature 96.8 F L 96.9 F L Pulse Rate 74 79 71 Respiratory Rate 16 16 Blood Pressure 120/55 L 117/59 L Pulse Oximetry 100 100 07/02/20 21:29 07/02/20 21:30 07/02/20 22:30 Temperature 97.0 F L 96.8 F L 96.9 F L Pulse Rate 71 72 74 Respiratory Rate 16 16 16 Blood Pressure 111/65 117/70 124/58 L Pulse Oximetry 100 100 100 07/02/20 23:30 07/03/20 0
[2020-07-03 20:45] LABS: Hematocrit 27.3 % (42.0-52.0)
[2020-07-03] MEDS: SODIUM CHLORIDE 0.9% IV 250 ML 30 ML IV CONT (22:16)
[2020-07-04] VITALS (17 sets, daily range): BP systolic 101–118; BP diastolic 50–62; PULSE 63–88; RESP 16–18; TEMP 36.1–36.5; O2SAT 99–100
[2020-07-04 02:36] LABS: Hematocrit 31.2 % (42.0-52.0); Hemoglobin 8.1 g/dL (14.0-18.0); Mean Corpuscular Hemoglobin 21.5 pg (26-34); Mean Corpuscular Volume 82.8 fl (80-100); Platelet Count Result 155 k/mm3 (150-375); Red Blood Count 3.77 M/mm3 (4.6-6.20); Red Cell Distribution Width 18.9 % (11.5-14.5); White Blood Count 6.4 K/mm3 (4.5-10.0)
[2020-07-04 02:38] LABS: Anion Gap -1 mmol/L (8-16); Blood Urea Nitrogen 12 mg/dL (9-20); Calcium 8.1 mg/dL (8.4-10.2); Carbon Dioxide 36 mmol/L (22-30); Chloride 103 mmol/L (98-107); Estimated CRCL calculation 81 ml/min; Estimated Glomerular Filt Rate > 60; Glucose 82 mg/dL (75-110); Potassium 4.4 mmol/L (3.4-5.0); Sodium 138 mmol/L (137-145)
--- NOTE | 2020-07-04 07:52 | WPDGIPROGNO ---
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: Code(s): Z92.29 - Personal history of other drug therapy Status: Acute Assessment and Plan: on hold (4) EDILSON and COPD overlap syndrome: Code(s): G47.33 - Obstructive sleep apnea (adult) (pediatric); J44.9 - Chronic obstructive pulmonary disease, unspecified Status: Acute Assessment and Plan: pulmonary on board, on oxygen (5) Atrial fibrillation: Qualifiers: Atrial fibrillation type: unspecified Qualified Code(s): I48.91 - Unspecified atrial fibrillation Code(s): I48.91 - Unspecified atrial fibrillation Status: Acute Subjective Date/time seen: 07/04/20 07:52 Interval history: feeling better, tolerating diet, denies any more GIB. He has not had BM Review of Systems Review of Systems: All systems reviewed & are unremarkable except as noted in HPI and below Exam Const: General: comfortable and no acute distress Other: using oxygen HENMT: General nose exam: Normal nares present Eyes: General: appearance normal, both eyes and all related structures Neck: Neck: no JVD Resp: Other: few rhonchi, using oxygen Cardio: Rate: regular rate Rhythm: regular rhythm GI: Inspection: non-distended GI Palp: Yes Soft to palpation and No Tenderness to palpation present (GI) Auscultation: normal bowel sounds Skin: General skin exam: no rashes or lesions noted Neuro: Speech: normal speech Motor exam (neuro): Normal motor muscle tone present throughout Extrem: General: normal to inspection Psych: Mental Status: mental status grossly normal Objective Data Vital Signs Vital Signs: Vital Signs - 24 hr 07/03/20 08:00 07/03/20 08:35 07/03/20 10:00 Temperature 97.1 F L Pulse Rate 76 80 70 Respiratory Rate 18 Blood Pressure 117/56 L Pulse Oximetry 100 07/03/20 11:19 07/03/20 12:00 07/03/20 14:00 Temperature 97.6 F Pulse Rate 58 L 74 Respiratory Rate 18 Blood Pressure 124/58 L Pulse Oximetry 99 100 07/03/20 16:00 07/03/20 18:00 07/03/20 20:00 Temperature 97.3 F L Pulse Rate 70 73 Respiratory Rate 18 Blood Pressure 129/51 L Pulse Oximetry 100 100 07/03/20 20:17 07/03/20 22:00 07/03/20 22:21 Temperature 97.9 F 97.6 F Pulse Rate 80 72 64 Respiratory Rate 16 16 Blood Pressure 115/52 L 107/57 L Pulse Oximetry 100 100 07/03/20 22:30 07/03/20 22:45 07/03/20 23:45 Temperature 97.6 F 96.9 F L 97.2 F L Pulse Rate 64 62 67 Respiratory Rate 16 20 18 Blood Pressure 107/57 L 113/45 L 106/41 L Pulse Oximetry 100 98 100 07/04/20 00:00 07/04/20 01:19 07/04/20 01:56 Temperature 97.7 F 97.7 F Pulse Rate 68 76 76 Respiratory Rate 18 18 Blood Pressure 116/51 L 116/51 L Pulse Oximetry 99 99 07/04/20 04:00 07/04/20 06:00 Temperature 97.7 F Pulse Rate 63 67 Respiratory Rate 18 Blood Pressure 113/50 L Pulse Oximetry 100 Intake/Output Intake/Output: Intake & Output 07/01/20 07/02/20 07/03/20 07/04/20 23:59 23:59 23:59 23:59 Intake Total 620 1190 660 Output Total 875 200 Balance 620 706 836 Meds/Results Medications: Active Medications Generic Name Dose Route Start Last Admin Trade Name Freq PRN Reason Stop Dose Admin Albuterol 2.5 mg 07/02/20 20:26 Albuterol Sulfate Neb 2.5 Mg/0.5 Ml Inh INHALATION QIDRT PRN shortness of breath or wheezing Morphine Sulfate 4 mg 07/02/20 16:46 Morphine Sulfate (*Crx) 4 Mg/Ml Inj IV PUSH Q2H PRN Pain Rated 7-10 Non-Formulary Medication 2 puff 07/02/20 20:30 Tiotropium-Olodaterol [Stiol
[2020-07-04] MEDS: PANTOPRAZOLE SODIUM IV 40 MG VIAL IV PUSH ×2 (09:05→20:12)
[2020-07-04] MEDS: SOTALOL HCL 80 MG TABLET PO ×2 (09:05→20:12)
[2020-07-04] MEDS: ROSUVASTATIN 10 MG TABLET 40 MG PO (09:05)
[2020-07-04 11:44] LABS: Hemoglobin 8.5 g/dL (14.0-18.0)
[2020-07-04] MEDS: BISACODYL 5 MG TABLET EC 20 MG PO (16:33)
[2020-07-04] MEDS: polyethylene glycoL 3350 238 GM BOTTLE PO (16:35)
--- NOTE | 2020-07-04 17:12 | PM.IMPN ---
Progress Note: A&P Assessment and Plan (1) Occult GI bleeding: Code(s): R19.5 - Other fecal abnormalities Status: Acute Assessment and Plan: Patient presents with a hemoglobin of 5.6. He is weak and dizzy but overall tolerating this very well to suggest that this is been a slow blood loss. He is guaiac-positive in the ED. Patient was transfused again overnight (3rd unit of PRBC) and Hgb is 8.5 now. Continue H&H every 6 hours. GI has been consulted with plans for colo and EGD tomorrow. Transfuse as needed. Xarelto on hold. Continue Protonix. (2) Acute blood loss anemia: Code(s): D62 - Acute posthemorrhagic anemia Status: Acute Assessment and Plan: Hemoglobin 5.6 on admission. Iron studies consistent with iron deficiency anemia. He was transfused 2 units of packed red blood cells on 07/02 and hemoglobin has climbed to 7.9. Hgb dropped t 7.0 and he received a 3rd unit of PRBC overnight. Continue to monitor. Workup to determine etiology of blood loss in process. (3) EDILSON and COPD overlap syndrome: Code(s): G47.33 - Obstructive sleep apnea (adult) (pediatric); J44.9 - Chronic obstructive pulmonary disease, unspecified Status: Acute Assessment and Plan: The patient is intolerant to NIV. He is on chronic home O2 at 2 L. O2 requirement now to 3 L but his pulse ox is 100%. Will instruct staff to wean oxygen to keep SpO2 greater than 92%. Continue with nebulizer treatments prn and his inhaler. (4) Atrial fibrillation: Qualifiers: Atrial fibrillation type: unspecified Qualified Code(s): I48.91 - Unspecified atrial fibrillation Code(s): I48.91 - Unspecified atrial fibrillation Status: Acute Assessment and Plan: The patient is on sotalol to maintain NSR. Xarelto is on hold at this time due to the GI bleed. Okay to stop telemetry. (5) Hyperlipidemia: Code(s): E78.5 - Hyperlipidemia, unspecified Status: Chronic Assessment and Plan: LFTs normal. Continue with patient's rosuvastatin. (6) DVT prophylaxis: Code(s): Z29.9 - Encounter for prophylactic measures, unspecified Status: Acute Assessment and Plan: SCDs Subjective Date/time seen: 07/04/20 17:12 Interval history: 70yo male with AFib on Xarelto and chronic respiratory failure from COPD on 2L NC chronically here for weakness and dizziness and found to be profoundly anemic. Slept poorly last night but not unexpected as this is more of a chronic issue. No problems overnight. He received a blood transfusion overnight and had no problems with this. He denies any chest pain or abdominal pain. He does have shortness of breath but this is chronic. No nausea or vomiting. Exam Narrative: Exam Narrative: AF 97.6 101/60 67 18 100% 3L Gen - NARD sitting up in chair Chest - Distant but clear breath sounds CV - RRR S1/S2. Telemetry showing occasional PVCs. Abd - Soft, NT/ND, Positive BS Ext - no pedal edema Psych - Nml mood and affect Skin - Warm and dry Objective Data Vital Signs Vital Signs: Vital Signs - 24 hr 07/03/20 18:00 07/03/20 20:00 07/03/20 20:17 Temperature 97.3 F L Pulse Rate 73 80 Respiratory Rate 18 Blood Pressure 129/51 L Pulse Oximetry 100 100 07/03/20 22:00 07/03/20 22:21 07/03/20 22:30 Temperature 97.9 F 97.6 F 97.6 F Pulse Rate 72 64 64 Respiratory Rate 16 16 16 Blood Pressure 115/52 L 107/57 L 107/57 L Pulse Oximetry 100 100 100 07/03/20 22:45 07/03/20 23:45 07/04/20 00:00 Temperature 96.9 F L 97.2 F L Pulse Rate 62 67 68 Respiratory Rate 20 18 Blood Pressure 113/45 L 106/41 L Pulse Oximetry 98 100 07/04/20 01:19 07/04/20 01:56 07/04/20 04:00 Temperature 97.7 F 97.7 F Pulse Rate 76 76 63 Respiratory Rate 18 18 Blood Pressure 116/51 L 116/51 L Pulse Oximetry 99 99 07/04/20 06:00 07/04/20 08:00 07/04/20 09:00 Temperature 97.7 F Pulse Rate 67 76 64
[2020-07-04 18:47] LABS: Hematocrit 32.8 % (42.0-52.0); Hemoglobin 8.7 g/dL (14.0-18.0)
[2020-07-05] VITALS (33 sets, daily range): BP systolic 90–120; BP diastolic 34–71; PULSE 58–150; RESP 12–22; TEMP 35.9–36.4; O2SAT 92–100; BMI 30.6
--- NOTE | 2020-07-05 | ECHO_ITS ---
Patient Info Name: Pedro Angelo Age: 70 years : 1950 Gender: Male Ht: 72 in Wt: 225 lbs BSA: 2.30 m2 HR: 69 bpm BP: 90 / 71 mmHg Heart Rhythm: Sinus Rhythm Technical Quality: Good Exam Date: 07/05/2020 10:33 AM Exam Location: [facility] Pulmonary Patient Status: Inpatient Admit Date: 07/02/2020 Staff Ordering Physician: Rohit Membreno MD Tank Filler: Cyrus Bryant RDCS, RT Attending Provider: Jayce Trujillo MD Referring Physician: Haseeb DISLA; Exam Type: CA echo doppler color flow Study Info Indications I50.9 - Heart failure, unspecified Complete two-dimensional, color flow and Doppler transthoracic echocardiogram is performed. Summary 1. Complete two-dimensional, color flow and Doppler transthoracic echocardiogram is performed. 2. Left ventricular chamber dimension is mildly enlarged. 3. Left ventricular systolic function is normal, estimated at 55-60%. 4. There is mildly increased left ventricular wall thickness. 5. The left ventricular diastolic function is normal. 6. Global longitudinal strain is abnormal at -13 %. 7. The basal inferior wall, and mid inferior wall are hypokinetic. 8. Right ventricular chamber dimension is mildly enlarged. 9. Right ventricular systolic function is reduced. 10. There is mild mitral valve regurgitation. 11. There is mild tricuspid valve regurgitation. 12. There is mild pulmonic regurgitation. Left Ventricle Left ventricular chamber dimension is mildly enlarged. Left ventricular systolic function is normal, estimated at 55-60%. There is mildly increased left ventricular wall thickness. The left ventricular diastolic function is normal. Global longitudinal strain is abnormal at -13 %. The basal inferior wall, and mid inferior wall are hypokinetic. All other swanson appear normal. Right Ventricle Right ventricular chamber dimension is mildly enlarged. Right ventricular systolic function is reduced. Left Atria Left atrial chamber dimension is mildly enlarged. Right Atria Right atrial chamber dimension is mildly enlarged. Atrial Septum Intact interatrial septum visualized by color flow imaging. Aortic Valve The aortic valve is trileaflet. There is mild aortic valve sclerosis. There is no aortic valve stenosis. There is trace aortic valve regurgitation. Pulmonic Valve The pulmonic valve is normal. There is no pulmonic valve stenosis. There is mild pulmonic regurgitation. Mitral Valve The mitral valve has normal leaflets. There is no mitral valve stenosis. There is mild mitral valve regurgitation. Tricuspid Valve The tricuspid valve leaflets are normal. There is no significant tricuspid valve stenosis. There is mild tricuspid valve regurgitation. Pericardium/Pleural The pericardium appears normal. There is trivial pericardial effusion. Inferior Vena Cava Normal inferior vena cava with >50% collapse upon inspiration consistent with normal right atrial pressure, 10 mmHg. Aorta The aortic root size at the sinus of Valsalva is borderline dilated. The prox ascending aorta size is normal. Left Ventricular Outflow Tract Name Value Normal LVOT 2D LVOT Diameter 2.0 cm LVO
[2020-07-05] MEDS: SOTALOL HCL 40 MG TABLET PO (00:13)
[2020-07-05 01:20] LABS: Hematocrit 33.7 % (42.0-52.0); Hemoglobin 8.9 g/dL (14.0-18.0)
[2020-07-05] MEDS: METOPROLOL TARTRATE INJ 5 MG/5 ML VIAL IV PUSH (03:43)
--- NOTE | 2020-07-05 04:40 | PM.EVENT ---
Event Note Event Note Event Note: I was called about Mr. Angelo after his heart rate was sustained in the 140s to 150s patient asymptomatic blood pressure stable. Patient has been transferred to IMU for better rate control and monitoring.
[2020-07-05] MEDS: MAGNESIUM CITRATE 300 ML BTL PO (04:41)
--- NOTE | 2020-07-05 06:33 | PC.NURSE ---
To Receive this patient from 2nd Medical room 244. This patient is to be admitted into IMU bed 205-2.
--- NOTE | 2020-07-05 06:34 | PC.NURSE ---
SBAR report faxed to this nurse at 0440 A.M. from [facility] medical department.
--- NOTE | 2020-07-05 06:34 | PC.NURSE ---
KIMBER Carter initiated call at 0446 a.m. to give report to this nurse. Report was given and all questions/plan of care reviewed. Patient to transfer from room 244 to IMU bed 205-2 by bed per RN.
--- NOTE | 2020-07-05 06:48 | PC.NURSE ---
This patient arrived to the floor at 0500 a.m. Patient was oriented to room and unit including how to use call light and plan of care. This nurse to resume plan of care.
[2020-07-05 07:21] LABS: Hematocrit 31.5 % (42.0-52.0); Hemoglobin 8.3 g/dL (14.0-18.0); Mean Corpuscular HGB Conc 26.3 g/dl (32-36); Mean Corpuscular Volume 79.7 fl (80-100); Mean Platelet Volume 11.8 fl (7.4-10.4); Platelet Count Result 161 k/mm3 (150-375); Red Blood Count 3.95 M/mm3 (4.6-6.20); Red Cell Distribution Width 19.6 % (11.5-14.5); White Blood Count 6.4 K/mm3 (4.5-10.0)
[2020-07-05 07:25] LABS: Anion Gap 0 mmol/L (8-16); Blood Urea Nitrogen 11 mg/dL (9-20); Calcium 8.1 mg/dL (8.4-10.2); Carbon Dioxide 34 mmol/L (22-30); Chloride 103 mmol/L (98-107); Estimated CRCL calculation 81 ml/min; Estimated Glomerular Filt Rate > 60; Glucose 94 mg/dL (75-110); Sodium 137 mmol/L (137-145)
--- NOTE | 2020-07-05 08:55 | ECG_ITS ---
Measurements Intervals [place] Rate: 63 P: 22 MA: 145 QRS: -15 QRSD: 100 T: 18 QT: 411 QTc: 423 Interpretive Statements SINUS RHYTHM BASELINE ARTIFACT- V3 NORMAL ECG Electronically Signed On 07-05-2020 13:54:52 CDT by Alexi Prince D.O.
[2020-07-05] MEDS: PANTOPRAZOLE SODIUM IV 40 MG VIAL IV PUSH (10:45)
[2020-07-05] MEDS: ROSUVASTATIN 10 MG TABLET 40 MG PO (10:45)
[2020-07-05] MEDS: SOTALOL HCL 80 MG TABLET PO ×2 (10:46→20:17)
--- NOTE | 2020-07-05 11:18 | PCNSR ---
On 07/05/20, the student, Mariana Montanez, provided care and completed [facility] documentation on this patient. I have reviewed the student's documentation and agree with the findings.
[2020-07-05] MEDS: LACTATED RINGERS 1,000 ML 150 ML IV CONT (12:24)
--- NOTE | 2020-07-05 12:27 | WPDANESEPPF ---
Anes - Initial Pre Proc Eval Procedure: Operation Date: 07/05/20 14:00 Proposed Procedures p Esophagogastroduodenoscopy & Colonoscopy - Lloyd Carreno MD Date/Time: 07/05/20 12:27 Surgeon: Kenton Trujillo MD Pre Op Diagnosis: Occult GI bleed, anemia Patient Data Age: 70 Gender: M Height: 6 ft Weight: 102.5 kg Last Vital Signs Temp 96.7 F L 07/05/20 12:13 Pulse 66 07/05/20 12:13 Resp 18 07/05/20 12:13 BP 117/52 L 07/05/20 12:13 Pulse Ox 95 07/05/20 12:13 Allergies Allergy/AdvReac Type Severity Reaction Status Date / Time No Known Allergies Allergy Unknown Verified 07/05/20 12:10 Home Medications Medication Instructions Recorded Confirmed Type Xarelto 20 mg DAILY 05/04/19 07/02/20 History rosuvastatin 40 mg PO DAILY 05/04/19 07/02/20 History sotalol 80 mg PO Q12HR #60 tablet 05/11/19 07/02/20 Rx albuterol sulfate 90 mcg/actuation See Rx Instructions .ROUTE 04/15/20 07/02/20 Rx aerosol inhaler .COMPLEX #9 g tiotropium 2.5 mcg-olodaterol 2.5 2 puff INHALATION Q24H #4 g 05/03/20 07/02/20 Rx mcg/actuation mist for inhalation albuterol sulfate 2.5 mg INHALATION QID PRN 07/02/20 07/02/20 History Laboratory Tests 07/04/20 07/05/20 07/05/20 18:31 00:39 06:44 WBC 6.4 K/mm3 K/mm3 (4.5-10.0) RBC 3.95 M/mm3 L M/mm3 (4.6-6.20) Hgb 8.7 g/dL L g/dL 8.9 g/dL L g/dL 8.3 g/dL L g/dL (14.0-18.0) (14.0-18.0) (14.0-18.0) Hct 32.8 % L % 33.7 % L % 31.5 % L % (42.0-52.0) (42.0-52.0) (42.0-52.0) MCV 79.7 fl L fl (80-100) MCH 21.0 pg L pg (26-34) MCHC 26.3 g/dl L g/dl (32-36) RDW 19.6 % H % (11.5-14.5) Plt Count 161 k/mm3 k/mm3 (150-375) MPV 11.8 fl H fl (7.4-10.4) Sodium Potassium Chloride Carbon Dioxide Anion Gap BUN Creatinine Estim Creat Clear Calc Estimated GFR Glucose Calcium 07/05/20 06:44 WBC RBC Hgb Hct MCV MCH MCHC RDW Plt Count MPV Sodium 137 mmol/L mmol/L (137-145) Potassium 4.0 mmol/L mmol/L (3.4-5.0) Chloride 103 mmol/L mmol/L (98-107) Carbon Dioxide 34 mmol/L H mmol/L (22-30) Anion Gap 0 mmol/L L mmol/L (8-16) BUN 11 mg/dL mg/dL (9-20) Creatinine 0.90 mg/dL mg/dL (0.7-1.3) Estim Creat Clear Calc 81 ml/min ml/min Estimated GFR > 60 (59 - ) Glucose 94 mg/dL mg/dL (75-110) Calcium 8.1 mg/dL L mg/dL (8.4-10.2) Patient hx anesthesia problems: none Family hx anesthesia problems: none [facility] Past Medical History Medical History (Updated 07/03/20 @ 17:42 by Jayce Trujillo MD) Adult idiopathic generalized osteoporosis Ankle fracture, left Ankle fracture, right Arthritis Atrial fibrillation Atrial fibrillation with RVR Bladder cancer Surgery plus chemotherapy Cataracts, bilateral COPD (chronic obstructive pulmonary disease) 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 Hyperlipidemia Kidney stone Obstructive sleep apnea Intolerant of CPAP machine Pneumonia Rectal bleeding Symptomatic anemia Tobacco abuse UTI (urinary tract infection) Surgical History Surgical History (Updated 07/02/20 @ 20:40 by Sandra Otoole NP) H/O cystoscopy Excision of bladder cancer x2 H/O vascular surgery Stent in RLE History of kidney surgery Due to large kidney stone S/P AAA repair S/P cataract surgery Right eye pupil irregular shaped due to surgery Family History Family History Father Family history of obesity Family history of cardiovascular disease Family history of coronary artery disease Sibling Family history of congenital heart disease, Onset Age: 60 Family history of respiratory disorder,
--- NOTE | 2020-07-05 15:08 | PM.IMPN ---
Progress Note: A&P Assessment and Plan (1) Atrial fibrillation: Qualifiers: Atrial fibrillation type: unspecified Qualified Code(s): I48.91 - Unspecified atrial fibrillation Code(s): I48.91 - Unspecified atrial fibrillation Status: Acute Assessment and Plan: The patient is on sotalol to maintain NSR. Xarelto is on hold at this time due to the GI bleed. Patient went into AFib/RVR but was asymptomatic. He either is having these episodes at home and just not aware or possibly the prep with electrolyte sifts caused the AFib/RVR. He converted to NSR. The Cardizem drip was stopped. Continue Sotalol. Continue telemetry. (2) Occult GI bleeding: Code(s): R19.5 - Other fecal abnormalities Status: Acute Assessment and Plan: Patient presents with a hemoglobin of 5.6. He is weak and dizzy but overall tolerated the anemia very well to suggest that this is been a slow blood loss. He is guaiac-positive in the ED. Patient has been transfused 3 units of PRBC and Hgb is 8.3 now. GI has been consulted with plans for colo and EGD later today. Transfuse as needed. Xarelto on hold. Continue Protonix. (3) Acute blood loss anemia: Code(s): D62 - Acute posthemorrhagic anemia Status: Acute Assessment and Plan: Hemoglobin 5.6 on admission. Iron studies consistent with iron deficiency anemia. He was transfused 2 units of packed red blood cells on 07/02 and hemoglobin climbed to 7.9. Hgb dropped to7.0 and he received a 3rd unit of PRBC. Hgb today at 8.3. Related to GI blood loss. Continue to monitor. Workup to determine etiology of blood loss in process. (4) EDILSON and COPD overlap syndrome: Code(s): G47.33 - Obstructive sleep apnea (adult) (pediatric); J44.9 - Chronic obstructive pulmonary disease, unspecified Status: Acute Assessment and Plan: The patient is intolerant to NIV. He is on chronic home O2 at 2 L. O2 requirement now to 3 L. Wean oxygen to keep SpO2 greater than 92%. Continue with nebulizer treatments prn and his inhaler. (5) Hyperlipidemia: Code(s): E78.5 - Hyperlipidemia, unspecified Status: Chronic Assessment and Plan: LFTs normal. Continue with patient's rosuvastatin. (6) DVT prophylaxis: Code(s): Z29.9 - Encounter for prophylactic measures, unspecified Status: Acute Assessment and Plan: SCDs Subjective Date/time seen: 07/05/20 15:08 Interval history: 70yo male with AFib on Xarelto and chronic respiratory failure from COPD on 2L NC chronically here for weakness and dizziness and found to be profoundly anemic. Patient developed tachycardia with AFib. He denies feeling palpitations or CP. Slight SOB. Tolerated bowel prep overnight. He did have some red blood in stool one time. He was moved to IMU and started on Diltiazem drip. He converted to NSR and drip stopped. Exam Narrative: Exam Narrative: AF 96.7 117/52 66 18 95% 3L Gen - NARD Chest - mild inspiratory rhonchi CV - RRR S1/S2. Telemetry showing AFib/RVR but converted this morning around 800am Abd - Soft, NT/ND, Positive BS Ext - no pedal edema Psych - Nml mood and affect Skin - Warm and dry Objective Data Vital Signs Vital Signs: Vital Signs - 24 hr 07/04/20 16:00 07/04/20 18:00 07/04/20 20:00 Temperature 97.6 F Pulse Rate 88 69 82 Respiratory Rate 18 Blood Pressure 118/58 L Pulse Oximetry 100 100 07/04/20 20:12 07/04/20 21:48 07/04/20 22:17 Temperature 97.0 F L Pulse Rate 84 74 Respiratory Rate 16 Blood Pressure 106/62 Pulse Oximetry 100 99 07/05/20 00:00 07/05/20 00:13 07/05/20 02:00 Temperature 97.3 F L Pulse Rate 150 H 140 H 110 H Respiratory Rate 18 Blood Pressure 112/59 L Pulse Oximetry 98 07/05/20 03:43 07/05/20 04:00 07/05/20 04:26 Temperature 97.0 F L Pulse Rate 130 H 124 H 97 Respiratory Rate 18 Blood Pressure 104/58 L Pulse Oximet
--- NOTE | 2020-07-05 15:21 | SUR.OPER ---
EGD START 1351, END 1354 COLONOSCOPY START 1357, END 1515
[2020-07-05] MEDS: PANTOPRAZOLE 40 MG TABLET PO (20:17)
[2020-07-06] VITALS (10 sets, daily range): BP systolic 92–113; BP diastolic 47–89; PULSE 64–95; RESP 16–18; TEMP 36.1–37.1; O2SAT 94–100
[2020-07-06 05:50] LABS: Basophils Absolute Auto 0.1 K/mm3 (0.0-0.1); Basophils Percent Auto 0.9 % (0.2-1.2); Eosinophils Absolute Auto 0.2 K/mm3 (0-0.3); Eosinophils Percent Auto 3.1 % (0-4.4); Hematocrit 28.4 % (42.0-52.0); Hemoglobin 7.5 g/dL (14.0-18.0); Immature Granulocyte Absolute 0.02 K/mm3 (0.00-0.031); Immature Granulocyte Percent A 0.3 % (0-0.5); Immature Platelet Fraction Pct 8.8 % (0.9-11.2); Mean Corpuscular HGB Conc 26.4 g/dl (32-36); Mean Corpuscular Hemoglobin 21.4 pg (26-34); Mean Corpuscular Volume 80.9 fl (80-100); Mean Platelet Volume 11.8 fl (7.4-10.4); Monocytes Absolute Auto 0.6 K/mm3 (0.1-0.6); Monocytes Percent Auto 8.9 % (2.6-8.5); Neutrophils Absolute Auto 4.7 K/mm3 (1.3-6.7); Neutrophils Percent Auto 67.8 % (45.5-73.1); Platelet Count Result 145 k/mm3 (150-375); Red Blood Count 3.51 M/mm3 (4.6-6.20); Red Cell Distribution Width 19.9 % (11.5-14.5); White Blood Count 6.9 K/mm3 (4.5-10.0)
[2020-07-06 06:03] LABS: Albumin Level 2.8 g/dL (3.5-5.1); Anion Gap 0 mmol/L (8-16); Blood Urea Nitrogen 12 mg/dL (9-20); Calcium 8.3 mg/dL (8.4-10.2); Carbon Dioxide 36 mmol/L (22-30); Chloride 104 mmol/L (98-107); Estimated CRCL calculation 73 ml/min; Estimated Glomerular Filt Rate > 60; Glucose 101 mg/dL (75-110); Magnesium 2.2 mg/dL (1.6-2.3); Sodium 140 mmol/L (137-145)
[2020-07-06 06:39] LABS: Hypochromasia 2+ (NORMAL); Poikilocytosis 1+ (NORMAL); Stomatocytes 1+ (NORMAL)
[2020-07-06] MEDS: POTASSIUM/PHOSPHORUS/SODIUM 1.5 GM PACKET 1 PACKET PO (09:25)
[2020-07-06] MEDS: SOTALOL HCL 80 MG TABLET PO (09:26)
[2020-07-06] MEDS: PANTOPRAZOLE 40 MG TABLET PO (09:27)
[2020-07-06] MEDS: ROSUVASTATIN 10 MG TABLET 40 MG PO (09:27)
--- NOTE | 2020-07-06 10:53 | P.PNAN_ITS ---
Anes - Prog Note Post-Op Date/Time: 07/06/20 10:53 Cardiovascular status: normal Respiratory status: normal Airway patency: baseline Mental status: baseline Post-Op hydration status: normal Vital Signs: Last Vital Signs Temp 36.8 C 07/06/20 08:00 Pulse 73 07/06/20 09:26 Resp 17 07/06/20 08:00 BP 92/52 L 07/06/20 08:00 Pulse Ox 100 07/06/20 08:00 Pain Score (VAS): 03/03 I/O: Intake & Output 07/05/20 07/06/20 07/06/20 23:59 07:59 15:59 Intake Total 240 Output Total 350 Balance -110 Laboratory Tests 07/06/20 04:27 07/06/20 04:27 07/06/20 07/06/20 04:27 04:27 WBC 6.9 RBC 3.51 L Hgb 7.5 L Hct 28.4 L MCV 80.9 MCH 21.4 L MCHC 26.4 L RDW 19.9 H Plt Count 145 L MPV 11.8 H Immature Gran % (Auto) 0.3 Neut % (Auto) 67.8 Lymph % (Auto) 19.0 [place] % (Auto) 8.9 H Eos % (Auto) 3.1 Baso % (Auto) 0.9 Lymph # (Auto) 1.30 [place] # (Auto) 0.6 Eos # (Auto) 0.2 Baso # (Auto) 0.1 Abs Immat Gran (auto) 0.02 Absolute Neuts (auto) 4.7 Absolute Nucleated RBC 0.0 Nucleated RBC % 0.0 Platelet Estimate Slightly decreased % Immature Plt Fraction 8.8 Hypochromasia 2+ Poikilocytosis 1+ Stomatocytes 1+ Sodium 140 Potassium 4.0 Chloride 104 Carbon Dioxide 36 H Anion Gap 0 L BUN 12 Creatinine 1.00 Estim Creat Clear Calc 73 Estimated GFR > 60 Glucose 101 Calcium 8.3 L Phosphorus 2.0 L Magnesium 2.2 Albumin 2.8 L Patient Feedback: Patient satisfied with anesthetic care.
--- NOTE | 2020-07-06 13:21 | WPDGIPROGNO ---
Progress Note: A&P Assessment and Plan (1) Symptomatic anemia: Code(s): D64.9 - Anemia, unspecified Status: Acute Assessment and Plan: hb low but stable, probably multifactorial from using blood thinner- had non-bleeding erosive gastritis but continue with daily PPI, also had multiple polyps in colon some large size, hemorrhoids, etc hold xarelto for 7 days since several polyps removed iron supplement no contraindications by GI standpoint to go home (2) Rectal bleeding: Code(s): K62.5 - Hemorrhage of anus and rectum Status: Acute Assessment and Plan: from hemorrhoids will prescribe anusol supp (3) Erosive gastritis: Code(s): K29.60 - Other gastritis without bleeding Status: Acute Assessment and Plan: ppi (4) Adenomatous colon polyp: Code(s): D12.6 - Benign neoplasm of colon, unspecified Status: Acute Assessment and Plan: colonoscopy in 6 months- will arrange (5) External hemorrhoid, bleeding: Code(s): K64.4 - Residual hemorrhoidal skin tags Status: Acute Assessment and Plan: suppository (6) Hx of custodial use of blood thinners: Code(s): Z92.29 - Personal history of other drug therapy Status: Acute (7) Atrial fibrillation: Qualifiers: Atrial fibrillation type: unspecified Qualified Code(s): I48.91 - Unspecified atrial fibrillation Code(s): I48.91 - Unspecified atrial fibrillation Status: Acute Subjective Date/time seen: 07/06/20 13:21 Interval history: egd with erosive gastritis without signs of bleeding, colonoscopy with more than 20 polyps removed, also large external hemorrhoids today has some bleeding after BM from hemorrhoids but overall feeling better and asking to go home Review of Systems Review of Systems: All systems reviewed & are unremarkable except as noted in HPI and below Exam Const: General: comfortable and no acute distress Other: using oxygen HENMT: General nose exam: Normal nares present Eyes: General: appearance normal, both eyes and all related structures Neck: Neck: no JVD Resp: Auscultation: clear to auscultation bilaterally Other: using oxygen Cardio: Rate: regular rate Rhythm: regular rhythm GI: Inspection: non-distended GI Palp: Yes Soft to palpation and No Tenderness to palpation present (GI) Auscultation: normal bowel sounds Skin: General skin exam: no rashes or lesions noted Neuro: Speech: normal speech Motor exam (neuro): Normal motor muscle tone present throughout Extrem: General: normal to inspection Psych: Mental Status: mental status grossly normal Objective Data Vital Signs Vital Signs: Vital Signs - 24 hr 07/05/20 15:20 07/05/20 15:30 07/05/20 15:40 Temperature Pulse Rate 69 64 62 Respiratory Rate 19 22 H 22 H Blood Pressure 96/34 L 96/34 L 98/42 L Pulse Oximetry 92 97 96 07/05/20 15:50 07/05/20 16:00 07/05/20 16:19 Temperature 97.6 F Pulse Rate 61 67 Respiratory Rate 13 18 Blood Pressure 98/57 L 120/52 L Pulse Oximetry 93 97 96 07/05/20 17:42 07/05/20 19:32 07/05/20 20:00 Temperature 97 F L Pulse Rate 77 78 65 Respiratory Rate 18 Blood Pressure 113/47 L Pulse Oximetry 100 07/05/20 20:15 07/05/20 20:17 07/05/20 22:00 Temperature Pulse Rate 71 81 Respiratory Rate Blood Pressure Pulse Oximetry 100 07/05/20 23:46 07/05/20 23:55 07/06/20 00:00 Temperature 97.1 F L Pulse Rate 79 69 Respiratory Rate 16 Blood Pressure 111/61 Pulse Oximetry 100 100 07/06/20 02:00 07/06/20 04:00 07/06/20 06:00 Temperature 96.9 F L Pulse Rate 73 95 80 Respiratory Rate 16 Blood Pressure 113/89 Pulse Oximetry 100 07/06/20 08:00 07/06/20 09:26 07/06/20 10:00 Temperature 98.3 F Pulse Rate 64 73 64 Respiratory Rate 17 Blood Pressure 92/52 L Pulse Oximetry 94 07/06/20 10:54 07/06/20 12:00 Temperature 98.7 F Pulse Rate 74 Respiratory R
[2020-07-06 15:57] LABS: Hematocrit 29.8 % (42.0-52.0); Hemoglobin 7.8 g/dL (14.0-18.0)
--- NOTE | 2020-07-06 16:10 | PM.DS ---
DS: Admitting Diagnosis Admitting Diagnosis Admitting Diagnosis: Dizzy and weak; anemic DS: Discharge Diagnosis Discharge Diagnosis (1) Atrial fibrillation: Qualifiers: Atrial fibrillation type: unspecified Qualified Code(s): I48.91 - Unspecified atrial fibrillation Code(s): I48.91 - Unspecified atrial fibrillation Status: Acute Assessment and Plan: The patient remained on sotalol during his hospital course. Xarelto was on hold due to the GI bleed. Patient went into AFib/RVR but was asymptomatic. He either is having these episodes at home and is just not aware or possibly the prep with electrolyte sifts caused the AFib/RVR. Patient was moved to the IMU. Was started on a Cardizem drip but converted to normal sinus rhythm by the following day. Sotalol was continued. Cardizem was stopped. Patient maintained normal sinus rhythm. (2) Occult GI bleeding: Code(s): R19.5 - Other fecal abnormalities Status: Acute Assessment and Plan: Patient presented with a hemoglobin of 5.6. He was weak and dizzy but overall tolerated the anemia very well to suggest that this is been a slow blood loss. He was guaiac-positive in the ED. Xarelto held. Treated with protonix. Patient was transfused a total of 3 units of PRBC and Hgb stabilized in the 7-8 range now. GI was consulted and patient underwent colo and EGD 07/05/20. EGD showing normal esophagus and duodenum with mild to moderate erosive gastritis. Colonoscopy revealed many polyps that were removed, few diverticuli and a large size thrombosed external hemorrhoid. No colitis or AVMs. No evidence of bleeding except stigmata of bleeding from the hemorrhoid. GI recommended holding the Xarelto for 7 days. He was felt that the anemia was multifactorial related to the gastritis, multiple large polyps, and hemorrhoid associated with being on anticoagulation. Daily PPI recommended. Plan for repeat colonoscopy in 6 months. Iron supplement. (3) Acute blood loss anemia: Code(s): D62 - Acute posthemorrhagic anemia Status: Acute Assessment and Plan: Hemoglobin 5.6 on admission. Xarelto held. Iron studies consistent with iron deficiency anemia. He was transfused 2 units of packed red blood cells on 07/02 and hemoglobin climbed to 7.9. Hgb dropped to7.0 and he received a 3rd unit of PRBC. Hgb remained stable in the 7-8 range. Related to GI blood loss. As above. (4) EDILSON and COPD overlap syndrome: Code(s): G47.33 - Obstructive sleep apnea (adult) (pediatric); J44.9 - Chronic obstructive pulmonary disease, unspecified Status: Acute Assessment and Plan: The patient is intolerant to NIV. He is on chronic home O2 at 2 L. He remained stable. We continued with nebulizer treatments prn and his inhaler. (5) Hyperlipidemia: Code(s): E78.5 - Hyperlipidemia, unspecified Status: Chronic Assessment and Plan: LFTs were normal. We continued with patient's rosuvastatin. DS: Summary Hospital Course Reason for hospitalization: 70yo male here for weakness and found to have profound anemia. Please see H&P for details Hospital Course: Please see above for details of hospital course Status at Discharge Cognitive/behavioral status at discharge: stable Time Spent with Patient Time attestation: Total time spent providing and/or coordinating discharge services: 38 minutes Time spent: Greater than 30 minutes Exam Narrative: Exam Narrative: AF 98.7 110/47 74 18 100% 3L Gen - NARD sitting at the side of the bed Chest - distant, clear breath sounds. nml RR CV - RRR S1/S2. Telemetry showing 9 beat run on probable AFib with aberrancy Abd - Soft, NT/ND, Positive BS Ext - no pedal edema Psych - Nml mood and affect Skin - Warm and dry DS: Data Data Completed and Pending Pending studies at discharge: Pending at discharge 07/05/20 15:19 Surgical [PTH] Routine Labs on day of d
== END 2020-07-06 17:05 | disposition home or self-care (01) | DRG 393 ==
LOC: ANHED 15:47 → ANH2MED 16:58 → ANHIMU 07-06 16:26 → ANH2MED 07-09 10:33 → ANHIMU 07-09 10:33
PROVIDERS: Internal Medicine; Internal Medicine Gastroenterology; Admitting Provider Family Medicine; Emergency Provider Emergency Medicine; PCP Family Medicine Adolescent Medicine; Visit Provider Nurse Practitioner
PROC: 0DJ08ZZ Inspection of Upper Intestinal Tract, Via Natural or Artificial Opening Endoscopic (ICD-10-PCS; CPT 43235; principal; 2020-07-05 14:00)
DX: K64.8 Other hemorrhoids (principal); K29.71 Gastritis, unspecified, with bleeding; D62 Acute posthemorrhagic anemia; J96.11 Chronic respiratory failure with hypoxia; I48.20 Chronic atrial fibrillation, unspecified; K63.5 Polyp of colon; K57.30 Diverticulosis of large intestine without perforation or abscess without bleeding; G47.33 Obstructive sleep apnea (adult) (pediatric); J44.9 Chronic obstructive pulmonary disease, unspecified; E78.5 Hyperlipidemia, unspecified; M81.8 Other osteoporosis without current pathological fracture; M19.90 Unspecified osteoarthritis, unspecified site; Z99.81 Dependence on supplemental oxygen; Z85.51 Personal history of malignant neoplasm of bladder; Z87.891 Personal history of nicotine dependence; Z79.01 Long term (current) use of anticoagulants; Z87.442 Personal history of urinary calculi
CPT/HCPCS: 36415; 36430; 71046; 80048; 80053; 80069; 82607; 82728; 82746; 83540; 83550; 83735; 85014; 85018; 85025; 85027; 85055; 86850; 86900; 86901; 86923; 87081; 88305; 93005; 93306; 99285; A9270; C9113; J2001; J2370; J2704; J7050; J7120; P9016

== ENCOUNTER 2020-10-31 12:08 | Observation (INO) | payer MEDICARE, SELFPAY ==
[2020-10-31] VITALS (24 sets, daily range): BP systolic 104–139; BP diastolic 66–73; PULSE 54–76; RESP 11–21; TEMP 36.7; O2SAT 97–100
--- NOTE | ~2020-10-31 | XR_ITS ---
EXAMINATION: XR chest 2V EXAM DATE: 10/31/2020 13:08 INDICATION: weakness, shortness of breath. History atrial fibrillation COPD. TECHNIQUE: Frontal and lateral projections of the chest obtained and reviewed. Comparison is made to prior examination from 07/02/2020. FINDINGS: Right basilar nodule is probably patient's nipple. The lungs are otherwise clear. There a re no pleural effusions. The cardiomediastinal silhouette is within normal limits. There is no pneu mothorax suspected. Abdominal aortic endograft. There are no osseous abnormalities identified. IMPRESSION: No acute cardiopulmonary findings. Reviewed, dictated and finalized at location A.
--- NOTE | 2020-10-31 12:19 | ECG_ITS ---
Measurements Intervals [place] Rate: 73 P: 56 [place]: 141 QRS: -34 QRSD: 91 T: 34 QT: 389 QTc: 431 Interpretive Statements SINUS RHYTHM LEFT AXIS DEVIATION INCOMPLETE RIGHT BUNDLE BRANCH BLOCK BASELINE ARTIFACT- I, II, III, AVR, AVL, AVF BORDERLINE ECG Electronically Signed On 10-31-2020 12:39:33 CDT by Alexi Prince D.O.
[2020-10-31 12:29] LABS: Basophils Absolute Auto 0.1 K/mm3 (0.0-0.1); Eosinophils Absolute Auto 0.2 K/mm3 (0-0.3); Hematocrit 47.2 % (42.0-52.0); Immature Granulocyte Absolute 0.02 K/mm3 (0.00-0.031); Immature Granulocyte Percent A 0.3 % (0-0.5); Lymphocytes Percent Auto 22.2 % (18.3-44.2); Mean Corpuscular HGB Conc 27.5 g/dl (32-36); Mean Corpuscular Volume 90.6 fl (80-100); Mean Platelet Volume 11.9 fl (7.4-10.4); Monocytes Absolute Auto 0.7 K/mm3 (0.1-0.6); Monocytes Percent Auto 9.8 % (2.6-8.5); Neutrophils Absolute Auto 4.3 K/mm3 (1.3-6.7); Neutrophils Percent Auto 63.7 % (45.5-73.1); Platelet Count Result 144 k/mm3 (150-375); Red Blood Count 5.21 M/mm3 (4.6-6.20); Red Cell Distribution Width 19.4 % (11.5-14.5); White Blood Count 6.8 K/mm3 (4.5-10.0)
[2020-10-31 12:43] LABS: Anion Gap 5 mmol/L (8-16); Blood Urea Nitrogen 15 mg/dL (9-20); Calcium 8.9 mg/dL (8.4-10.2); Carbon Dioxide 31 mmol/L (22-30); Chloride 104 mmol/L (98-107); Estimated CRCL calculation 71 ml/min; Estimated Glomerular Filt Rate > 60; Glucose 102 mg/dL (65-110); Potassium 4.5 mmol/L (3.4-5.0); Sodium 140 mmol/L (137-145)
[2020-10-31 12:45] LABS: Anisocytosis 1+ (NORMAL)
--- NOTE | 2020-10-31 14:10 | ED.WEAKNESS ---
HPI - Weakness General Chief complaint: Weakness Stated complaint: weakness Time Seen by Provider: 10/31/20 12:17 History of Present Illness HPI Narrative: Patient is a 70-year-old male with history of atrial fibrillation and COPD who presents to the ER with weakness. Reports that he was driving earlier today when he felt weak and lightheaded. He reports his heart was beating between 85 bpm and 145 bpm and was irregular in atrial fibrillation. Reports he is gone in and out of atrial fibrillation a couple times over last week which is atypical for him. He has been taking his home medication. He reports he also checked his pulse ox that time was 85% while wearing his home 3 L of oxygen Related Data Home Medications Medication Instructions Recorded Confirmed Xarelto 20 mg DAILY 05/04/19 07/02/20 rosuvastatin 40 mg PO DAILY 05/04/19 07/02/20 albuterol sulfate 2.5 mg INHALATION QID PRN 07/02/20 07/02/20 Allergies Allergy/AdvReac Type Severity Reaction Status Date / Time No Known Allergies Allergy Unknown Verified 07/05/20 12:10 Review of Systems Review of Systems: All systems reviewed & are unremarkable except as noted in HPI and below Constitutional: Constitutional: Denies chills, Denies fever(s) and Reports weakness Cardiovascular: Cardiovascular: Denies chest pain, Reports rapid heart rate and Denies radiating jaw, neck or arm pain Comments: Irregular heart beat Respiratory: Respiratory: Denies cough and Denies dyspnea Gastrointestinal: Gastrointestinal: Denies abdominal pain, Denies nausea and Denies vomiting Neurologic: Reports dizziness, Reports syncope (Near syncope), Denies headache(s), Denies focal weakness and Denies numbness PMFSH Past Medical History Medical History (Updated 10/31/20 @ 16:37 by Tom Mcconnell MD) Adenomatous colon polyp Adult idiopathic generalized osteoporosis Ankle fracture, left Ankle fracture, right Arthritis Atrial fibrillation Atrial fibrillation with RVR Bladder cancer Surgery plus chemotherapy Cataracts, bilateral COPD (chronic obstructive pulmonary disease) Erosive gastritis External hemorrhoid, bleeding 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 Hyperlipidemia Kidney stone Obstructive sleep apnea Intolerant of CPAP machine Pneumonia Rectal bleeding Symptomatic anemia Tobacco abuse UTI (urinary tract infection) Surgical History Surgical History (Updated 07/02/20 @ 20:40 by Sandra Otoole NP) H/O cystoscopy Excision of bladder cancer x2 H/O vascular surgery Stent in RLE History of kidney surgery Due to large kidney stone S/P AAA repair S/P cataract surgery Right eye pupil irregular shaped due to surgery Family History Family History Father Family history of obesity Family history of cardiovascular disease Family history of coronary artery disease Sibling Family history of congenital heart disease, Onset Age: 60 Family history of respiratory disorder, Onset Age: 73 Mother Family history of primary malignant neoplasm of liver, Onset Age: 62 Social History Social History (Updated 07/02/20 @ 20:40 by Sandra Otoole NP) Social History: The patient is . He has 2 children. They are both boys and he desires to have both of his sons as the durable power bankruptcy attorney for healthcare. The patient desires to be a full code. 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 The patient is a former smoker. No alcohol marijuana or illicit drugs. Smoking packs per day: 1.5 Smoking cigarettes per day: 30.0 Years smoked: 43 Smoking pack-years: 64.50 Smoking status: Former smoker Tobacco type: cigarettes Second hand tobacco smoke exposure: No Smoking end date: 02/23/16 Alcohol intake: never Substance use: never Substance use type: does not use Gender identity (if verbalized by the patient): Male Se
--- NOTE | 2020-10-31 14:20 | PC.NURSE ---
admission orders written. pt resting on stretcher. denies needs at this time.
--- NOTE | 2020-10-31 17:00 | ADMGEN ---
This patient, Pedro Angelo, was admitted to Medical Room 258-. Patient/family oriented to hospital policies and general routines including ID bracelet, bed and alarms, visiting hours, pain management, procedures, bathroom and other care routines, personal items, smoking policy, room service/diet, and visiting hours. Information on how to activate the Rapid Response Team has been discussed. Patient/Family are encouraged to report perceived risks to care and to ask questions if they do not understand what they are told or what they should do.
[2020-11-01] VITALS: PULSE 63
[2020-11-01 02:31] VITALS: BMI 29.5
[2020-11-01 03:54] VITALS: BP 123/67; PULSE 73; RESP 16; TEMP 36.6; O2SAT 100
[2020-11-01 04:00] VITALS: PULSE 95
[2020-11-01 08:00] VITALS: PULSE 105
--- NOTE | 2020-11-01 10:27 | PM.IMHP ---
H&P: HPI History of Present Illness Date/Time: 11/01/20 10:27 Chief Complaint: Patient Narrative: this is a 70-year-old patient Dr. Irene of our group followed him with a history of paroxysmal atrial fib and peripheral vascular disease. The patient has a history of significant COPD and we 1st saw him in 2018 when he was hospitalized with community-acquired pneumonia and during that hospitalization had some atrial fibrillation. He was treated with beta-roz therapy and stabilized. He did have recurrences of symptomatic atrial fibrillation and on a subsequent admission was placed on sotalol treatment with which he has done very well. He says he is very happy with the results of sotalol he generally has very few of any palpitations and has not had any significant complaints of that sort for the last couple of years. He states that he last saw Dr. Lau of our practice in February of this year which time he was stable without any obvious cardiovascular problems. He follows with a vascular surgeon at [facility] regarding his abdominal aortic aneurysm. Yesterday while he was in his state of usual fairly good health while driving the car he had some episodes of lightheadedness and he felt that he was possibly in danger of having a syncopal episode. He was not having any obvious sense of palpitations that were previously present when he had atrial fibrillation. Because of all this however he came to the emergency room where he was evaluated. Looks like his ER evaluation was negative he was not in atrial fibrillation for some reason he was admitted to our service overnight for observation and management. He is asymptomatic this morning and would like to be discharged. It is also interesting to note that between his last appointment in our office and this admission he was in the hospital here at [facility] in the early part of the summer with what was felt to be significant GI bleeding from either hemorrhoids or diverticuli. He had a hemoglobin of 5.5 he was evaluated endoscopically his Xarelto was obviously placed on hold. Between then and now his Xarelto has been resumed. He is no longer anemic with a hemoglobin of 13. I do not have any evidence at my disposal that Dr. Irene was made aware of this episode of significant GI bleeding. His telemetry since being up on the floor shows nothing but sinus rhythm. Review of Systems Constitutional: Constitutional: Reports no additional constitutional complaints Eyes: Eyes: Reports no additional eye complaints ENT: Reports system reviewed and no additional complaints, except as documented Cardiovascular: Cardiovascular: Reports as per HPI Respiratory: Respiratory: Reports dyspnea and Reports dyspnea on exertion Gastrointestinal: Gastrointestinal: Reports nausea Genitourinary: Genitourinary: Reports no additional male genitourinary complaints Musculoskeletal: Musculoskeletal: Reports no additional musculoskeletal complaints Integumentary/Breasts: Skin/Breast: Reports system reviewed and no additional complaints, except as docu Neurologic: Reports as per HPI Comments: Lightheadedness as mentioned in the history of present [facility] Past Medical History Medical History (Updated 10/31/20 @ 16:37 by Tom Mcconnell MD) Adenomatous colon polyp Adult idiopathic generalized osteoporosis Ankle fracture, left Ankle fracture, right Arthritis Atrial fibrillation Atrial fibrillation with RVR Bladder cancer Surgery plus chemotherapy Cataracts, bilateral COPD (chronic obstructive pulmonary disease) Erosive gastritis External hemorrhoid, bleeding 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
--- NOTE | 2020-11-01 10:34 | PM.DS ---
DS: Admitting Diagnosis Discharge Date November 01, 2020 Admitting Diagnosis lightheadedness history of atrial fibrillation COPD DS: Discharge Diagnosis Discharge Diagnosis (1) Atrial fibrillation: Qualifiers: Atrial fibrillation type: unspecified Qualified Code(s): I48.91 - Unspecified atrial fibrillation Code(s): I48.91 - Unspecified atrial fibrillation Status: Acute DS: Summary Hospital Course Reason for hospitalization: lightheadedness Hospital Course: this is a 70-year-old patient with a history of COPD paroxysmal atrial fibrillation. He also has a history of peripheral vascular disease with abdominal aortic aneurysm. He was experiencing symptoms of lightheadedness while operating his motor vehicle last evening so he came to the emergency room for evaluation. He was found to be stable in the emergency room I do not see any evidence of recurrent atrial fibrillation being documented. Despite that he was admitted to the hospital on our service for observation overnight. He is asymptomatic this morning and has not had no arrhythmias at all to demonstrated on telemetry overnight and into the 1st half of today. The patient appears to be a stable candidate for discharge. I do not recommend altering his medical regimen which consists of sotalol for his atrial fib and Xarelto for his anticoagulant. I will arrange follow-up in the office with my partner, Dr. Irene who has been primarily overseeing his cardiac follow-up in our practice. Status at Discharge Functional status at discharge: independent ambulation Overall status at discharge: patient is back to baseline Time Spent with Patient Time attestation: Total time spent providing and/or coordinating discharge services: Time spent: Less than 30 minutes Exam Const: General: comfortable and no acute distress Other: Pleasant gentleman well developed well nourished relaxing in his room watching television when I entered the room to see him HENMT: Mouth: Yes moist mucous membranes Eyes: Sclera: sclerae normal Pupils: Equal, round and reactive pupils present Neck: Neck: supple and no JVD Carotids: bruit Other: carotid upstrokes normal bilaterally no bruits Resp: Effort & Inspection: normal respiratory effort Other: breath sounds are diminished in both lung allison no rales no rhonchi no wheeze Cardio: Rate: regular rate Rhythm: regular rhythm Other: PMI not palpable no murmur no gallop no rub GI: GI Palp: Yes Soft to palpation Auscultation: normal bowel sounds Skin: General skin exam: normal color Extrem: General: normal to inspection DS: Data Data Completed and Pending Labs on day of discharge: Labs from last 24 hours 10/31/20 10/31/20 12:20 12:20 WBC 6.8 RBC 5.21 Hgb 13.0 L D Hct 47.2 MCV 90.6 MCH 25.0 L MCHC 27.5 L RDW 19.4 H Plt Count 144 L MPV 11.9 H Immature Gran % (Auto) 0.3 Neut % (Auto) 63.7 Lymph % (Auto) 22.2 [place] % (Auto) 9.8 H Eos % (Auto) 3.0 Baso % (Auto) 1.0 Lymph # (Auto) 1.50 [place] # (Auto) 0.7 H Eos # (Auto) 0.2 Baso # (Auto) 0.1 Abs Immat Gran (auto) 0.02 Absolute Neuts (auto) 4.3 Absolute Nucleated RBC 0.0 Nucleated RBC % 0.0 Platelet Estimate Slightly decreased Anisocytosis 1+ Sodium 140 Potassium 4.5 Chloride 104 Carbon Dioxide 31 H Anion Gap 5 L BUN 15 Creatinine 0.90 Estim Creat Clear Calc 71 Estimated GFR > 60 Glucose 102 Calcium 8.9 Discharge Plan Discharge Attending physician on discharge: Zora Chen Discharging Clinician: Madhu Perry Patient Disposition: Home, Self-Care Activity: as tolerated Diet: heart healthy Patient Instructions: Antibiotic Form, Rivaroxaban (By mouth) Stand Alone Forms: General Discharge Information Follow-up/Referrals: Antoine Fernandes MD [Primary Care Provider] - Discharge Medications: Continued albuterol sulfate 90 mc
== END 2020-11-01 11:48 | disposition home or self-care (01) ==
LOC: ANHED 12:26 → ANH2MED 16:37
PROVIDERS: Admitting Provider Internal Medicine Cardiovascular Disease; Emergency Provider Emergency Medicine; PCP Family Medicine Adolescent Medicine; Visit Provider Specialist
DX: R42 Dizziness and giddiness (principal); I48.91 Unspecified atrial fibrillation; J44.9 Chronic obstructive pulmonary disease, unspecified; I73.9 Peripheral vascular disease, unspecified; Z79.01 Long term (current) use of anticoagulants
CPT/HCPCS: 36415; 71046; 80048; 85025; 93005; 99285; G0378

== ENCOUNTER → 2020-12-21 00:41 | Outpatient (CLI) | payer MEDICARE, SELFPAY ==
[2020-12-21 18:23] LABS: SARS-CoV-2 RNA PCR Negative
== END ==
PROVIDERS: PCP Family Medicine Adolescent Medicine; Visit Provider Internal Medicine Gastroenterology
DX: Z01.812 Encounter for preprocedural laboratory examination (principal); Z20.822 Contact with and (suspected) exposure to COVID-19
CPT/HCPCS: C9803; U0003; U0005

== ENCOUNTER 2020-12-25 01:48 | Day surgery (SDC) | payer MEDICARE, SELFPAY ==
[2020-12-17 10:38] VITALS: BMI 30.6
[2020-12-25 08:08] VITALS: BP 116/59; PULSE 110; RESP 20; TEMP 36.8; O2SAT 93
[2020-12-25] MEDS: LACTATED RINGERS 1,000 ML 150 ML IV CONT (08:15)
--- NOTE | 2020-12-25 08:59 | WPDANESEPPF ---
Anes - Initial Pre Proc Eval Procedure: Operation Date: 12/25/20 09:30 Proposed Procedures p Screening Colonoscopy - Lloyd Carreno MD Date/Time: 12/25/20 08:59 Surgeon: Lloyd Carreno MD Pre Op Diagnosis: hx of colon polyps Patient Data Age: 70 Gender: M Height: 1.83 m Weight: 97.8 kg Last Vital Signs Temp 98.3 F 12/25/20 08:08 Pulse 110 H 12/25/20 08:08 Resp 20 12/25/20 08:08 BP 116/59 L 12/25/20 08:08 Pulse Ox 93 12/25/20 08:08 Allergies Allergy/AdvReac Type Severity Reaction Status Date / Time No Known Allergies Allergy Unknown Verified 12/25/20 08:06 Home Medications Medication Instructions Recorded Confirmed Type Xarelto 20 mg HS 05/04/19 12/25/20 History rosuvastatin 40 mg PO DAILY 05/04/19 12/25/20 History sotalol 80 mg PO Q12HR #60 tablet 05/11/19 12/25/20 Rx Stiolto Respimat 2 puff INHALATION DAILY 10/31/20 12/25/20 History albuterol sulfate 1 puff INHALATION QID PRN 10/31/20 12/25/20 History Patient hx anesthesia problems: none Family hx anesthesia problems: none Results Review: All pre-operative results and documents have been reviewed as part of the pre-operative evaluation. [facility] Past Medical History Medical History Adenomatous colon polyp Adult idiopathic generalized osteoporosis Ankle fracture, left Ankle fracture, right Arthritis Atrial fibrillation Atrial fibrillation with RVR Bladder cancer Surgery plus chemotherapy Cataracts, bilateral COPD (chronic obstructive pulmonary disease) Erosive gastritis External hemorrhoid, bleeding Hx of penitentiary use of blood thinners Hyperlipidemia Kidney stone Obstructive sleep apnea Intolerant of CPAP machine Pneumonia Rectal bleeding Symptomatic anemia Tobacco abuse UTI (urinary tract infection) Surgical History Surgical History H/O cystoscopy Excision of bladder cancer x2 H/O vascular surgery Stent in RLE History of kidney surgery Due to large kidney stone S/P AAA repair S/P cataract surgery Right eye pupil irregular shaped due to surgery Family History Family History Father Family history of obesity Family history of cardiovascular disease Family history of coronary artery disease Sibling Family history of congenital heart disease, Onset Age: 60 Family history of respiratory disorder, Onset Age: 73 Mother Family history of primary malignant neoplasm of liver, Onset Age: 62 Social History Social History Social History: The patient is . He has 2 children. They are both boys and he desires to have both of his sons as the durable power trust and estates attorney for healthcare. The patient desires to be a full code. 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 The patient is a former smoker. No alcohol marijuana or illicit drugs. Smoking packs per day: 1.5 Smoking cigarettes per day: 30.0 Years smoked: 43 Smoking pack-years: 64.50 Smoking status: Former smoker Tobacco type: cigarettes Second hand tobacco smoke exposure: No Smoking end date: 02/23/16 Additional smoking assessment comments: pt states he will take a couple puffs here or there Alcohol intake: former Substance use: never Substance use type: does not use Living arrangements: alone Gender identity (if verbalized by the patient): Male Sexual Orientation (if Verbalized by the Patient): Straight or Heterosexual Spiritual care concerns: No Anes - Eval Final PreProcedure Day of Procedure 12/25/20 08:59 Patient weight: obese Heart: irregular rhythm Lungs: clear to auscultation Airway: Mallampati scale class III Neurological: alert and oriented Last oral intake: >/= 8 hours ASA classificat
--- NOTE | 2020-12-25 09:08 | PM.HPGS ---
History of Present Illness History of Present Illness Consent: Risks, benefits, and alternatives have been discussed and questions answered. Patient agrees to proceed with procedure. Chief complaint: hx of colon polyps Narrative: Pedro Angelo is a 70 year old male with more than 20 TA polyps removed about 6 months ago Review of Systems Constitutional: Constitutional: Denies headache(s) and Denies weakness Eyes: Eyes: Denies blurry vision ENT: Reports Normal hearing present, Denies headache(s) and Denies neck pain Cardiovascular: Cardiovascular: Denies chest pain and Denies dyspnea Respiratory: Respiratory: Denies dyspnea Gastrointestinal: Gastrointestinal: Reports no additional gastrointestinal complaints Genitourinary: Genitourinary: Denies dysuria Musculoskeletal: Musculoskeletal: Denies neck pain Integumentary/Breasts: Skin/Breast: Denies dry skin Neurologic: Reports Normal hearing present, Denies headache(s) and Denies weakness Psychiatric: Psychiatric: Denies anxiety Endocrine: Endocrine: Denies change in body appearance Hematologic/Lymphatic: Hematologic/Lymphatic: Denies easy bleeding Allergic/Immunologic: Allergic/Immunologic: Denies urticaria PMFSH Past Medical History Medical History Adenomatous colon polyp Adult idiopathic generalized osteoporosis Ankle fracture, left Ankle fracture, right Arthritis Atrial fibrillation Atrial fibrillation with RVR Bladder cancer Surgery plus chemotherapy Cataracts, bilateral COPD (chronic obstructive pulmonary disease) Erosive gastritis External hemorrhoid, bleeding 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 Hyperlipidemia Kidney stone Obstructive sleep apnea Intolerant of CPAP machine Pneumonia Rectal bleeding Symptomatic anemia Tobacco abuse UTI (urinary tract infection) Surgical History Surgical History H/O cystoscopy Excision of bladder cancer x2 H/O vascular surgery Stent in RLE History of kidney surgery Due to large kidney stone S/P AAA repair S/P cataract surgery Right eye pupil irregular shaped due to surgery Family History Family History Father Family history of obesity Family history of cardiovascular disease Family history of coronary artery disease Sibling Family history of congenital heart disease, Onset Age: 60 Family history of respiratory disorder, Onset Age: 73 Mother Family history of primary malignant neoplasm of liver, Onset Age: 62 Social History Social History Social History: The patient is . He has 2 children. They are both boys and he desires to have both of his sons as the durable power assistant county attorney for healthcare. The patient desires to be a full code. 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 The patient is a former smoker. No alcohol marijuana or illicit drugs. Smoking packs per day: 1.5 Smoking cigarettes per day: 30.0 Years smoked: 43 Smoking pack-years: 64.50 Smoking status: Former smoker Tobacco type: cigarettes Second hand tobacco smoke exposure: No Smoking end date: 02/23/16 Additional smoking assessment comments: pt states he will take a couple puffs here or there Alcohol intake: former Substance use: never Substance use type: does not use Living arrangements: alone Gender identity (if verbalized by the patient): Male Sexual Orientation (if Verbalized by the Patient): Straight or Heterosexual Spiritual care concerns: No Meds Home Medications and Allergies Home Medications Medication Instructions Recorded Confirmed Type Xarelto 20 mg HS 05/04/19 12/25/20 History rosuvastatin 40 mg PO DAILY 05/04/19 12/25/20 History sotalol 80 mg PO Q12HR #60 tablet 05/11/19
[2020-12-25 09:50] VITALS: BP 90/63; PULSE 87; RESP 24; O2SAT 98
[2020-12-25 10:00] VITALS: BP 105/60; PULSE 84; RESP 22; O2SAT 98
[2020-12-25 10:10] VITALS: BP 120/69; PULSE 81; RESP 18; O2SAT 96
== END 2020-12-25 10:26 | disposition home or self-care (01) ==
PROVIDERS: PCP Family Medicine Adolescent Medicine; Visit Provider Internal Medicine Gastroenterology
PROC: 0DJD8ZZ Inspection of Lower Intestinal Tract, Via Natural or Artificial Opening Endoscopic (ICD-10-PCS; CPT 45378; principal; 2020-12-25 09:30)
DX: Z12.11 Encounter for screening for malignant neoplasm of colon (principal); C18.2 Malignant neoplasm of ascending colon; K57.30 Diverticulosis of large intestine without perforation or abscess without bleeding; D12.2 Benign neoplasm of ascending colon; M19.90 Unspecified osteoarthritis, unspecified site; J44.9 Chronic obstructive pulmonary disease, unspecified; E78.5 Hyperlipidemia, unspecified; D64.89 Other specified anemias; Z87.891 Personal history of nicotine dependence; Z79.51 Long term (current) use of inhaled steroids; I48.20 Chronic atrial fibrillation, unspecified; E66.9 Obesity, unspecified; Z68.29 Body mass index [BMI] 29.0-29.9, adult
CPT/HCPCS: 45380; 45385; 88305; J2704; J7120

== ENCOUNTER 2020-12-30 07:20 | Outpatient (CLI) | payer MEDICARE, SELFPAY ==
--- NOTE | ~2020-12-30 | CT_ITS ---
EXAMINATION: CT abdomen pelvis w con INDICATION: Ascending colon mass TECHNIQUE: Computed tomographic images of the abdomen and pelvis were obtained after the administrati on of 100 cc of Omnipaque 350 intravenous contrast. The dose-length product (DLP) was 1230.29 mGy-cm. Automated exposure control and iterative reconstruction technique were employed. COMPARISON: 07/06/2017 FINDINGS: The lung bases are clear. The heart size is normal. Punctate calcifications in otherwise no rmal appearing liver and spleen likely represent healed granulomatous disease. The pancreas, gallblad daria, and adrenal glands are normal. There is focal scarring in the lower pole of the right kidney. Th ere are multiple peripelvic cysts of the left kidney with cortical thinning of the kidney. There are changes of interval endoluminal aortobiiliac stent graft repair. There is a 5.5 cm fusiform infrarena l abdominal aortic aneurysm. No pathologically enlarged abdominal or pelvic lymph nodes are identifie d. There is no free intraperitoneal gas or evidence of bowel obstruction. There is mild asymmetric wa ll thickening of the ascending colon which may reflect the patient's known mass. The appendix is norm al. There is moderate lumbar spondylosis. There is a small fat-containing umbilical hernia. IMPRESSION: 1. Mild wall thickening of the ascending colon which may reflect the patient's known mass. No evidenc e of metastatic disease. 2. Fusiform infrarenal abdominal aortic aneurysm with interval endoluminal aortobiiliac stent graft r epair. Reviewed, dictated and finalized at location B. TANK OPERATOR IMPRESSION: 1. Mild wall thickening of the ascending colon which may reflect the patient's known mass. No evidence of metastatic disease. 2. Fusiform infrarenal abdominal aortic aneurysm with interval endoluminal aort obiiliac stent graft repair.
[2020-12-30 07:55] LABS: Estimated Glomerular Filt Rate > 60
== END 2020-12-30 07:21 | disposition home or self-care (01) ==
LOC: ANHIMG 07:27
PROVIDERS: PCP Family Medicine Adolescent Medicine; Visit Provider Internal Medicine Gastroenterology
DX: K63.89 Other specified diseases of intestine (principal); I71.4 Abdominal aortic aneurysm, without rupture; Z98.890 Other specified postprocedural states
CPT/HCPCS: 74177; Q9967

== ENCOUNTER 2021-01-02 09:04 | Outpatient (CLI) | payer MEDICARE, SELFPAY ==
[2021-01-02 09:24] LABS: Basophils Absolute Auto 0.1 K/mm3 (0.0-0.1); Basophils Percent Auto 0.9 % (0.2-1.2); Eosinophils Absolute Auto 0.2 K/mm3 (0-0.3); Eosinophils Percent Auto 2.5 % (0-4.4); Hematocrit 42.5 % (42.0-52.0); Hemoglobin 12.5 g/dL (14.0-18.0); Immature Granulocyte Absolute 0.01 K/mm3 (0.00-0.031); Immature Granulocyte Percent A 0.1 % (0-0.5); Lymphocytes Absolute Auto 1.32 K/mm3 (0.9-3.2); Lymphocytes Percent Auto 19.7 % (18.3-44.2); Mean Corpuscular HGB Conc 29.4 g/dl (32-36); Mean Corpuscular Hemoglobin 25.6 pg (26-34); Mean Corpuscular Volume 86.9 fl (80-100); Mean Platelet Volume 10.9 fl (7.4-10.4); Monocytes Absolute Auto 0.5 K/mm3 (0.1-0.6); Monocytes Percent Auto 7.3 % (2.6-8.5); Neutrophils Absolute Auto 4.7 K/mm3 (1.3-6.7); Neutrophils Percent Auto 69.5 % (45.5-73.1); Platelet Count Result 173 k/mm3 (150-375); Red Blood Count 4.89 M/mm3 (4.6-6.20); Red Cell Distribution Width 15.3 % (11.5-14.5); White Blood Count 6.7 K/mm3 (4.5-10.0)
[2021-01-02 09:34] LABS: Hypochromasia 1+ (NORMAL); Platelet Estimate Adequate (Adequate)
[2021-01-02 10:12] LABS: Alanine Aminotransferase 20 U/L (4-50); Albumin Level 3.9 g/dL (3.5-5.1); Alkaline Phosphatase 74 U/L (38-126); Anion Gap 6 mmol/L (8-16); Aspartate Amino Transferase 22 U/L (17-59); Bilirubin,Total 0.3 mg/dL (0.2-1.3); Blood Urea Nitrogen 10 mg/dL (9-20); Calcium 8.6 mg/dL (8.4-10.2); Carbon Dioxide 31 mmol/L (22-30); Chloride 105 mmol/L (98-107); Estimated Glomerular Filt Rate > 60; Glucose 92 mg/dL (65-110); Potassium 4.6 mmol/L (3.4-5.0); Sodium 142 mmol/L (137-145)
[2021-01-02 10:25] LABS: Iron 32 ug/dL (49-181)
[2021-01-02 10:35] LABS: Percent Iron Saturation 8 % (20-50)
== END 2021-01-02 09:05 | disposition home or self-care (01) ==
LOC: ANHLAB 09:07
PROVIDERS: PCP Family Medicine Adolescent Medicine; Visit Provider Internal Medicine Hematology & Oncology
DX: C18.2 Malignant neoplasm of ascending colon (principal); D64.9 Anemia, unspecified
CPT/HCPCS: 36415; 80053; 82378; 82728; 83540; 83550; 85025

== ENCOUNTER 2021-01-21 13:49 | Outpatient (CLI) | payer MEDICARE, SELFPAY | END 2021-01-21 13:50 | disposition home or self-care (01) | LOC: ANHSURGERY 13:53 | PROVIDERS: PCP Family Medicine Adolescent Medicine; Visit Provider Surgery | DX: Z01.812 Encounter for preprocedural laboratory examination (principal); C18.2 Malignant neoplasm of ascending colon | CPT/HCPCS: 36415; 86850; 86900; 86901 ==

== ENCOUNTER → 2021-01-27 03:46 | Outpatient (CLI) | payer MEDICARE, SELFPAY ==
[2021-01-27 19:11] LABS: SARS-CoV-2 RNA PCR Negative
== END ==
PROVIDERS: PCP Family Medicine Adolescent Medicine; Visit Provider Surgery
DX: Z01.812 Encounter for preprocedural laboratory examination (principal); Z20.822 Contact with and (suspected) exposure to COVID-19
CPT/HCPCS: C9803; U0003; U0005

== ENCOUNTER 2021-01-30 14:04 | Inpatient (IN) | payer MEDICARE, SELFPAY ==
[2021-01-21 14:16] VITALS: BP 126/69; PULSE 85; RESP 18; TEMP 36.4; O2SAT 96; BMI 30.1
--- NOTE | 2021-01-21 14:36 | PC.NURSE ---
Report to the Outpatient Waiting Room, entrance under the green pavilion located off [facility], at time __10:00AM on date __01/30/21____. OR Time: __12:00PM . - You and your visitor will be asked a series of questions to screen for COVID 19 for your protection. - A mask is required within the hospital. - Only one visitor is allowed at this time. Patient visitors will be guided where to wait when not with patient. Preoperative COVID Testing Requirements: No COVID Test needed if: (proof is required; if not received patient will have Rapid Test prior to entry) - Patient has received COVID Vaccine at least 14 days prior to procedure date or - Patient has positive COVID test result within last 90 days of surgery date. COVID Test needed if above criteria is not met If not COVID vaccinated a COVID test must be conducted within 72 hours of surgery and patient is asked to isolate self from time of testing until procedure. You will go to the [facility] for your COVID testing. The [facility] site is located at the corner of [address] [facility]. COVID 01/27/21, 09:20AM You will only be called if COVID results are positive and your surgeon may reschedule your elective surgery date. Patients may have clear liquids (water, carbonated beverages, clear teas, apple juice) until 3 hours prior to surgery with a maximum of 20 ounces. - No food from midnight until time of surgery - Infants may have breast milk until 4 hours before surgery, infant formula 6 hours prior to surgery. - Children will be allowed to drink immediately following surgery. If applicable, please bring a bottle or sippy cup to assist with drinking. Juice, water, soda, and popsicles are readily available. For infants on formula, please bring formula the day of surgery. Pacifiers are allowed. Take the following medications with a SIP of water the morning of surgery: ___SOTOLOL, ALBUTEROL INHALER OR NEBULIZER Medications to discontinue per physician XERALTO HOLD 2 DAYS PRE-OP_, HOLD VITAMINS/SUPPLEMENTS 3 DAYS PA-OP Date to take last dose 01/27/21-XERALTO Please no make-up, nail guatemalan, hairspray, perfume, deodorant, or body powder the day of surgery. No jewelry (including any body piercings) or valuables the day of surgery, leave them at home. Please take a shower or bath the night before, or the morning of, surgery with an antibacterial soap. Wear comfortable, loose fitting clothing. Children are encouraged to wear pajamas. - Jewelry must be removed prior to entering the operating room. Rings and piercings that are not removed may be cut off. - The hospital will not accept responsibility for valuables. - Please leave all valuables, including medications, at home the day of surgery. If you are going home after surgery, a licensed local company flatbed truck driver must drive you home. - NO public transportation without another adult. - We recommend that an adult stay with you for 24 hours following discharge. - We also recommend that you do not drive, make important decision, drink alcoholic beverages, or take any drugs that were not prescribed by your health care provider for at least 24 hours after your discharge time. For Pediatric surgeries, we recommend two adults accompany the child home (only one inside the building at this time). Follow any additional instructions given to you from your surgeon. Telephone instructions given to ____PATIENT and asked if any additional questions and then verbalized understanding. Patient advised to call surgeon office or pre surgery nurse liaison [phone] if any additional questions.
[2021-01-30] VITALS (24 sets, daily range): BP systolic 109–157; BP diastolic 63–80; PULSE 51–85; RESP 12–20; TEMP 36.1–36.7; O2SAT 96–100
[2021-01-30] MEDS: ACETAMINOPHEN 500 MG TABLET 1000 MG PO (10:35)
[2021-01-30] MEDS: LACTATED RINGERS 1,000 ML 30 ML IV CONT (10:45)
[2021-01-30] MEDS: KETOROLAC 15 MG/ML VIAL (*BKC) IV PUSH (10:51)
--- NOTE | 2021-01-30 11:48 | WPDANESEPPF ---
Anes - Initial Pre Proc Eval Procedure: Operation Date: 01/30/21 12:00 Proposed Procedures p Hand Assisted Laparoscopic Right Colectomy - Frances Lang MD Date/Time: 01/30/21 11:48 Surgeon: Frances Lang MD Pre Op Diagnosis: Right Colon Cancer Patient Data Age: 70 Gender: M Height: 1.8 m Weight: 95.6 kg Last Vital Signs Temp 36.4 C L 01/30/21 11:00 Pulse 72 01/30/21 11:00 Resp 16 01/30/21 11:00 BP 109/67 01/30/21 11:00 Pulse Ox 100 01/30/21 11:00 Allergies Allergy/AdvReac Type Severity Reaction Status Date / Time No Known Allergies Allergy Unknown Verified 01/30/21 11:14 Home Medications Medication Instructions Recorded Confirmed Type Xarelto 20 mg PO HS 05/04/19 01/30/21 History rosuvastatin 40 mg PO DAILY 05/04/19 01/30/21 History sotalol 80 mg PO Q12HR #60 tablet 05/11/19 01/30/21 Rx Stiolto Respimat 2 puff INHALATION DAILY 10/31/20 01/30/21 History erythromycin 500 mg tablet 1 g PO .COMPLEX #6 tablet 01/07/21 01/21/21 Rx neomycin 500 mg tablet 1 g PO .COMPLEX #6 tablet 01/07/21 01/21/21 Rx albuterol sulfate 2.5 mg INHALATION Q4-6H PRN 01/21/21 01/30/21 History ferrous sulfate 325 mg PO DAILY 01/21/21 01/30/21 History albuterol sulfate 90 mcg/actuation See Rx Instructions .ROUTE 01/27/21 Rx aerosol inhaler .COMPLEX #9 gram Patient hx anesthesia problems: none Family hx anesthesia problems: none Results Review: All pre-operative results and documents have been reviewed as part of the pre-operative evaluation. 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 Hyperlipidemia Kidney stone Obstructive sleep apnea Intolerant of CPAP machine Pneumonia Rectal bleeding Symptomatic anemia Tobacco abuse UTI (urinary tract infection) Surgical History Surgical History H/O cystoscopy Excision of bladder cancer x2 H/O vascular surgery Stent in RLE History of kidney surgery Due to large kidney stone S/P AAA repair S/P cataract surgery Right eye pupil irregular shaped due to surgery Family History Family History Father Family history of obesity Family history of cardiovascular disease Family history of coronary artery disease Sibling Family history of congenital heart disease, Onset Age: 60 Family history of respiratory disorder, Onset Age: 73 Mother Family history of primary malignant neoplasm of liver, Onset Age: 62 Social History Social History Social History: The patient is . He has 2 children. They are both boys and he desires to have both of his sons as the durable power trial attorney for healthcare. The patient desires to be a full code. 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 The patient is a former smoker. No alcohol marijuana or illicit drugs. 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
--- NOTE | 2021-01-30 11:54 | WPDHPUPDATE1 ---
History and Physical Update Update Date/Time: 01/30/21 11:54 History and Physical has been reviewed, including an updated exam of the patient. There are NO changes in the patient's condition. Risks, benefits, and alternatives have been discussed and questions answered. Patient agrees to proceed with procedure.
[2021-01-30] MEDS: ceFAZolin 2 GM/D5W 50 ML 2 GM/50 ML BAG IVPB ×2 (12:18→21:40)
[2021-01-30] MEDS: metroNIDAZOLE 500 MG/ISO 100ML 500 MG/100 ML BAG 100 MG IVPB (12:33)
[2021-01-30] MEDS: LIDO 1%/EPINEPHRINE 1:100,000 50 ML VIAL 20 ML INFILTRATE (12:55)
--- NOTE | 2021-01-30 14:54 | W.PM.PROC2 ---
Procedure Note - Detailed Date of Procedure 01/30/21 Pre-op Diagnosis Right Colon Cancer Post-op Diagnosis same Procedure Performed hand assisted laparoscopic right hemicolectomy c mobilization of hepatic flexure Surgeon Frances Lang MD Anesthesia general Indications 70 y/o M c bx proven R colon cancer Findings palpable tumor in proximal ascending colon Description of Procedure The patient was taken to the operating room and placed in the supine position. After adequate induction of general anesthesia, the patient was prepped and draped normal sterile fashion. A apple was placed and felt to be in the proper position. A time-out was then done to verify the patient's identity as well as the procedure being performed. I began by making a hand port incision around the umbilicus. This was carried down into the peritoneal cavity and there was noted adhesions to the lower anterior abdominal wall. These adhesions were taken down under visualization with the bovie cautery. Once the abdominal wall was cleared, the hand port was then placed. I then insufflated the abdomen through the hand port. I then placed the camera through the hand port and under direct visualization, I placed 2 5 mm ports in right lower and right mid abdomen. Once this was done, I examined the right abdomen. It was noted that the patient had adhesions of the cecum and distal ileum to the pelvis. These adhesions were taken down both bluntly and with the ligasure under direct visualization. This adhesiolysis took approximately 30 minutes. Once the right colon was mobilized, I began my medial approach. I did this by 1st recognizing and transecting the right colic vessels. This was taken down near the base of the mesentery with the LigaSure. Once this was done, I carried this plane towards the hepatic flexure until I encountered the duodenum which was mobilized posteriorly. I then began taking down the lateral attachments of the terminal ileum and right colon including taking down the white line of Toldt and the hepatic flexure. Once this was done my medial and lateral dissection planes met. I was able to easily manipulate the right colon. The palpable mass was noted in the proximal ascending colon. Further dissection was done to free up the transverse colon, including taking down the omentum. At this point, I extracorporealyzed the right colon and terminal ileum. I then transected the terminal ileum approximately 10 cm proximal to the ileo colic junction with a 55 ARIANNA stapler. I then localized the tumor in the proximal ascending colon. I measured 10 cm distal to this and transected the transverse colon at this point. Of note, I was able to palpate the middle colic vessels and the transection was done proximal to the vessels. I then performed a [id number] functional end-to-end anastomosis between the ileum and proximal transverse colon with a 55 ARIANNA stapler followed by a TL 60 stapler. The anastomosis was noted to be tension-free and widely patent. I closed the messenteric defect with a 2.0 silk suture. I then copiously irrigated the abdomen, no other pathology was noted. I then closed the hand port incision with a 0 PDS suture at the fascial level. The skin was closed with 4 O Monocryl subcuticular sutures including the 5 mm ports sites. Dermabond was then placed on all wounds. It was noted at this point that the patient had no urine in the apple bag. An intraoperative consult was obtained with Dr. James. Please see his report for details. The patient tolerated the procedure well. He was extubated in the operating room postoperatively and will be transferred to the recovery room in stable condition. Estimated Blood Loss 50 Drains No Packing No Pathology yes Complications No immediate complications Condition stable Disposition PACU
--- NOTE | 2021-01-30 15:21 | WPDURCON ---
Assessment and Plan Assessment and plan (1) Bladder neck contracture: Code(s): N32.0 - Bladder-neck obstruction Status: Acute Assessment and Plan: Cystoscopy, urethral dilatation and placement of urethral catheter (see procedure note) Catheter can be removed tomorrow, or anytime thereafter. Urology Consult Note HPI Date Seen: 01/30/21 Requesting Physician: Frances Lang MD Primary Care Provider: Antoine Fernandes MD Consult Narrative Narrative: Pedro Angelo is a 70 year old male, who has a history of one bladder tumor requiring resection in s and on ureteral stone in 2018, who we are asked to see during the course of a left colectomy because of a poorly draining catheter. I was aware this patient preoperatively because of a history of difficult intraoperative catheter placement in the past. At the initiation of the procedure nursing staff had no difficulty inserting a 14 F coude catheter it was noted that there was little, if any, urinary drainage throughout. Review of Systems Review of Systems: ROS unobtainable: Yes unobtainable due to endotracheal tube PMFSH Past Medical History Medical History Adenomatous colon polyp Adult idiopathic generalized osteoporosis Ankle fracture, left Ankle fracture, right Arthritis Atrial fibrillation Atrial fibrillation with RVR Bladder cancer Surgery plus chemotherapy Cataracts, bilateral Colonic mass COPD (chronic obstructive pulmonary disease) Erosive gastritis External hemorrhoid, bleeding Hx of group home use of blood thinners Hyperlipidemia Kidney stone Obstructive sleep apnea Intolerant of CPAP machine Pneumonia Rectal bleeding Symptomatic anemia Tobacco abuse UTI (urinary tract infection) Surgical History Surgical History H/O cystoscopy Excision of bladder cancer x2 H/O vascular surgery Stent in RLE History of kidney surgery Due to large kidney stone S/P AAA repair S/P cataract surgery Right eye pupil irregular shaped due to surgery Family History Family History Father Family history of obesity Family history of cardiovascular disease Family history of coronary artery disease Sibling Family history of congenital heart disease, Onset Age: 60 Family history of respiratory disorder, Onset Age: 73 Mother Family history of primary malignant neoplasm of liver, Onset Age: 62 Social History Social History Social History: The patient is . He has 2 children. They are both boys and he desires to have both of his sons as the durable power energy attorney for healthcare. The patient desires to be a full code. 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 The patient is a former smoker. No alcohol marijuana or illicit drugs. 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
--- NOTE | 2021-01-30 15:36 | W.PM.PROC2 ---
Procedure Note - Detailed Date of Procedure 01/30/21 Pre-op Diagnosis Right Colon Cancer Bladder neck contracture Post-op Diagnosis same Procedure Performed Cystoscopy, urethral dilatation, placement of Jacobs catheter Surgeon Dharmesh James MD Anesthesia general Description of Procedure Patient has completed his right colectomy by Dr. Lang we were asked to see for a poorly draining Jacobs catheter. Attempted to irrigate his indwelling 14 F catheter without success. I removed it. I had difficulty placing a coude catheter myself so therefore performed flexible cystoscopy with 16 F flexible cystoscope. Has evidence of a prior TURP. The bladder was endoscopically normal with the exception of perhaps a small capacity. There was no mucosally neoplasm or other abnormalities. There was a moderately constricting bladder neck contracture which I dilated to 20 F with Cait sounds. Seems to have a poorly compliant bladder which would turn catheters back on itself, making it a Bic difficult to place. Eventually we did get a 16 F [place] tip catheter placed which was draining clear urine. The dilatation was minimally traumatic and I believe his catheter can be removed anytime. Estimated Blood Loss 50 Drains Yes Packing No Pathology none sent Complications No immediate complications Condition stable Disposition PACU
--- NOTE | 2021-01-30 16:25 | SUR.PHASEI ---
7857- Call to KIMBER Lincoln to give report. Per Latonia she is not available at this time.
--- NOTE | 2021-01-30 17:05 | SUR.PHASEI ---
1705- Report given to KIMBER Lincoln. All questions and concerns answered at this time. Patient will be transferred to room 261 when room is finished being cleaned. Patient informed of plan at this time as well.
--- NOTE | 2021-01-30 18:00 | ADMGEN ---
This patient, Pedro Angelo, was admitted to Medical Room 261-01. Patient/family oriented to hospital policies and general routines including ID bracelet, bed and alarms, visiting hours, pain management, procedures, bathroom and other care routines, personal items, smoking policy, room service/diet, and visiting hours. Information on how to activate the Rapid Response Team has been discussed. Patient/Family are encouraged to report perceived risks to care and to ask questions if they do not understand what they are told or what they should do.
[2021-01-30] MEDS: LACTATED RINGERS 1,000 ML 100 ML IV CONT (19:26)
[2021-01-31] VITALS (16 sets, daily range): BP systolic 125–146; BP diastolic 59–72; PULSE 56–101; RESP 16; TEMP 36.4–36.8; O2SAT 96–99
[2021-01-31] MEDS: ceFAZolin 2 GM/D5W 50 ML 2 GM/50 ML BAG IVPB (04:27)
[2021-01-31] MEDS: LACTATED RINGERS 1,000 ML 100 ML IV CONT (04:31)
[2021-01-31 06:23] LABS: Basophils Percent Auto 0.2 % (0.2-1.2); Hemoglobin 12.7 g/dL (14.0-18.0); Immature Granulocyte Absolute 0.07 K/mm3 (0.00-0.031); Immature Granulocyte Percent A 0.5 % (0-0.5); Lymphocytes Absolute Auto 0.81 K/mm3 (0.9-3.2); Lymphocytes Percent Auto 6.3 % (18.3-44.2); Mean Corpuscular HGB Conc 31.8 g/dl (32-36); Mean Corpuscular Hemoglobin 27.9 pg (26-34); Mean Corpuscular Volume 87.7 fl (80-100); Mean Platelet Volume 12.7 fl (7.4-10.4); Monocytes Absolute Auto 0.6 K/mm3 (0.1-0.6); Monocytes Percent Auto 4.5 % (2.6-8.5); Neutrophils Absolute Auto 11.4 K/mm3 (1.3-6.7); Neutrophils Percent Auto 88.5 % (45.5-73.1); Platelet Count Result 137 k/mm3 (150-375); Red Blood Count 4.56 M/mm3 (4.6-6.20); Red Cell Distribution Width 16.4 % (11.5-14.5); White Blood Count 12.9 K/mm3 (4.5-10.0)
[2021-01-31 06:35] LABS: Anion Gap 9 mmol/L (8-16); Blood Urea Nitrogen 17 mg/dL (9-20); Calcium 8.6 mg/dL (8.4-10.2); Carbon Dioxide 22 mmol/L (22-30); Chloride 101 mmol/L (98-107); Estimated CRCL calculation 57 ml/min; Estimated Glomerular Filt Rate > 60; Glucose 119 mg/dL (65-110); Potassium 4.5 mmol/L (3.4-5.0); Sodium 132 mmol/L (137-145)
--- NOTE | 2021-01-31 07:41 | WPDUROPN2 ---
Progress Note: A&P Assessment and Plan (1) Bladder neck contracture: Code(s): N32.0 - Bladder-neck obstruction Status: Acute Assessment and Plan: Catheter out for voiding trial today Subjective Subjective Date/Time Seen: 01/31/21 07:41 Comfortable, talkative -> no complaints Review of Systems Cardiovascular: Cardiovascular: Denies chest pain, Denies lightheadedness, Denies palpitations and Denies dyspnea Respiratory: Respiratory: Denies dyspnea Gastrointestinal: Gastrointestinal: Denies diarrhea, Denies nausea and Denies vomiting Genitourinary: Genitourinary: Denies hematuria and Denies dysuria Endocrine: Endocrine: Denies palpitations Exam Const: General: no acute distress Resp: Effort & Inspection: normal respiratory effort GI: Inspection: non-distended GI Palp: No abdominal tenderness and No Guarding due to palpation present (GI) Auscultation: normal bowel sounds Urinary Catheter: Urinary Catheter: patent and draining and urine clear Objective Data Vital Signs Vital Signs: Vital Signs - 24 hr 01/30/21 11:00 01/30/21 14:59 01/30/21 15:10 Temperature 97.5 F L 96.9 F L Pulse Rate 72 85 65 Respiratory Rate 16 16 16 Blood Pressure 109/67 157/68 H 141/80 H Pulse Oximetry 100 100 100 01/30/21 15:20 01/30/21 15:30 01/30/21 15:40 Temperature Pulse Rate 64 62 66 Respiratory Rate 16 16 14 Blood Pressure 141/68 H 131/71 132/75 Pulse Oximetry 100 99 98 01/30/21 15:50 01/30/21 16:05 01/30/21 16:10 Temperature Pulse Rate 63 62 58 L Respiratory Rate 14 20 14 Blood Pressure 131/66 129/71 128/72 Pulse Oximetry 99 99 97 01/30/21 16:20 01/30/21 16:30 01/30/21 16:35 Temperature 97.0 F L Pulse Rate 51 L 60 56 L Respiratory Rate 12 12 12 Blood Pressure 126/66 127/73 128/70 Pulse Oximetry 99 98 98 01/30/21 16:50 01/30/21 16:55 01/30/21 17:10 Temperature Pulse Rate 60 57 L 52 L Respiratory Rate 12 12 15 Blood Pressure 126/63 128/69 125/65 Pulse Oximetry 100 98 99 01/30/21 17:25 01/30/21 17:35 01/30/21 17:45 Temperature Pulse Rate 52 L 78 65 Respiratory Rate 13 18 18 Blood Pressure 129/66 134/70 137/68 Pulse Oximetry 97 100 100 01/30/21 18:10 01/30/21 18:21 01/30/21 18:25 Temperature 97.1 F L 97.0 F L Pulse Rate 56 L 62 66 Respiratory Rate 18 18 Blood Pressure 149/65 H 142/71 H Pulse Oximetry 100 99 01/30/21 18:55 01/30/21 20:00 01/30/21 23:49 Temperature 97.1 F L 98.0 F Pulse Rate 67 61 80 Respiratory Rate 18 18 16 Blood Pressure 138/71 131/76 Pulse Oximetry 100 100 96 01/31/21 00:00 01/31/21 03:49 01/31/21 04:00 Temperature 98.0 F Pulse Rate 58 L 65 61 Respiratory Rate 16 Blood Pressure 141/64 H Pulse Oximetry 97 01/31/21 04:22 Temperature Pulse Rate 56 L Respiratory Rate Blood Pressure Pulse Oximetry Intake/Output Intake/Output: Intake & Output 01/28/21 01/29/21 01/30/21 01/31/21 23:59 23:59 23:59 23:59 Intake Total 900 1350 Output Total 80 50 Balance 820 1300 Meds/Results Medications: Active Medications Generic Name Dose Route Start Last Admin Trade Name Freq PRN Reason Stop Dose Admin Acetaminophen 500 mg 01/31/21 18:00 Acetaminophen 500 Mg Tablet PO Q6H PRN Mild Pain (1-3) or Fever Hydrocodone Bitart/Acetaminophen 1 tab 01/30/21 14:04 Hydrocodone/Acetaminophen (*Crx) 5-325 Mg Tablet PO Q4H PRN Pain Rated 4-6 Alvimopan 12 mg 01/31/21 21:00 Alvimopan 12 Mg Capsule PO 02/07/21 20:59 Q12HR AXEL Enoxaparin Sodium 40 mg 01/31/21 09:00 Enoxaparin 40 Mg/0.4 Ml Syringe SUB-Q DAILY AXEL Lactated Ringer's 1,000 mls @ 100 mls/hr 01/30/21 14:05 01/31/21 04:31 Lr - Lactated Ringers Iv IV CONT 100 mls/hr .Q10H AXEL Administration Acetaminophen 1,000 mg in 100 mls @ 400 mls/hr 01/30/21 18:00 01/31/21 06:07 Ofirmev 1,000 Mg Ivpb IVPB 01/31/21 12:14 Infused Q6HR AXEL Infusion Morphine Sulfate 2 mg 01/30
[2021-01-31] MEDS: ENOXAPARIN 40 MG/0.4 ML SYRINGE SUB-Q (08:45)
--- NOTE | 2021-01-31 08:55 | PM.PNGS ---
Progress Note: A&P Assessment and Plan (1) Cancer of right colon: Code(s): C18.2 - Malignant neoplasm of ascending colon Status: Acute Assessment and Plan: doing well, encourage OOB/IS, clears, await ROBF, await path (2) Bladder neck contracture: Code(s): N32.0 - Bladder-neck obstruction Status: Acute Assessment and Plan: appreciate urology input, apple out today Subjective Subjective Date/Time Seen: 01/31/21 08:55 feels good, mild soreness, has been up and ambulating without issue Review of Systems Review of Systems: All systems reviewed & are unremarkable except as noted in HPI and below Exam Const: General: cooperative, comfortable and no acute distress Resp: Effort & Inspection: normal respiratory effort Auscultation: clear to auscultation bilaterally Cardio: Rate: regular rate Rhythm: regular rhythm GI: Inspection: normal to inspection, distended and incision GI Palp: Yes Soft to palpation and Yes Tenderness to palpation present (GI) Objective Data Vital Signs Vital Signs: Vital Signs - 24 hr 01/30/21 11:00 01/30/21 14:59 01/30/21 15:10 Temperature 36.4 C L 36.1 C L Pulse Rate 72 85 65 Respiratory Rate 16 16 16 Blood Pressure 109/67 157/68 H 141/80 H Pulse Oximetry 100 100 100 01/30/21 15:20 01/30/21 15:30 01/30/21 15:40 Temperature Pulse Rate 64 62 66 Respiratory Rate 16 16 14 Blood Pressure 141/68 H 131/71 132/75 Pulse Oximetry 100 99 98 01/30/21 15:50 01/30/21 16:05 01/30/21 16:10 Temperature Pulse Rate 63 62 58 L Respiratory Rate 14 20 14 Blood Pressure 131/66 129/71 128/72 Pulse Oximetry 99 99 97 01/30/21 16:20 01/30/21 16:30 01/30/21 16:35 Temperature 36.1 C L Pulse Rate 51 L 60 56 L Respiratory Rate 12 12 12 Blood Pressure 126/66 127/73 128/70 Pulse Oximetry 99 98 98 01/30/21 16:50 01/30/21 16:55 01/30/21 17:10 Temperature Pulse Rate 60 57 L 52 L Respiratory Rate 12 12 15 Blood Pressure 126/63 128/69 125/65 Pulse Oximetry 100 98 99 01/30/21 17:25 01/30/21 17:35 01/30/21 17:45 Temperature Pulse Rate 52 L 78 65 Respiratory Rate 13 18 18 Blood Pressure 129/66 134/70 137/68 Pulse Oximetry 97 100 100 01/30/21 18:10 01/30/21 18:21 01/30/21 18:25 Temperature 36.2 C L 36.1 C L Pulse Rate 56 L 62 66 Respiratory Rate 18 18 Blood Pressure 149/65 H 142/71 H Pulse Oximetry 100 99 01/30/21 18:55 01/30/21 20:00 01/30/21 23:49 Temperature 36.2 C L 36.7 C Pulse Rate 67 61 80 Respiratory Rate 18 18 16 Blood Pressure 138/71 131/76 Pulse Oximetry 100 100 96 01/31/21 00:00 01/31/21 03:49 01/31/21 04:00 Temperature 36.7 C Pulse Rate 58 L 65 61 Respiratory Rate 16 Blood Pressure 141/64 H Pulse Oximetry 97 01/31/21 04:22 01/31/21 08:46 Temperature Pulse Rate 56 L 84 Respiratory Rate 16 Blood Pressure 146/72 H Pulse Oximetry Intake/Output Intake/Output: Intake & Output 01/28/21 01/29/21 01/30/21 01/31/21 23:59 23:59 23:59 23:59 Intake Total 900 1350 Output Total 80 50 Balance 820 1300 Meds/Results Medications: Active Medications Generic Name Dose Route Start Last Admin Trade Name Freq PRN Reason Stop Dose Admin Acetaminophen 500 mg 01/31/21 18:00 Acetaminophen 500 Mg Tablet PO Q6H PRN Mild Pain (1-3) or Fever Hydrocodone Bitart/Acetaminophen 1 tab 01/30/21 14:04 Hydrocodone/Acetaminophen (*Crx) 5-325 Mg Tablet PO Q4H PRN Pain Rated 4-6 Alvimopan 12 mg 01/31/21 21:00 Alvimopan 12 Mg Capsule PO 02/07/21 20:59 Q12HR AXEL Enoxaparin Sodium 40 mg 01/31/21 09:00 01/31/21 08:45 Enoxaparin 40 Mg/0.4 Ml Syringe SUB-Q 40 mg DAILY AXEL Administration Lactated Ringer's 1,000 mls @ 100 mls/hr 01/30/21 14:05 01/31/21 04:31 Lr - Lactated Ringers Iv IV CONT 100 mls/hr .Q10H AXEL Administration Acetaminophen 1,000 mg in 100 mls @ 400 mls/hr 01/30/21 18:00 01/31/21 06:07 Ofirmev 1,000 Mg Ivpb
--- NOTE | 2021-01-31 08:59 | PC.NURSE ---
notified pharmacy of missing 0900 PO protonix. will give when they send it
--- NOTE | 2021-01-31 09:21 | PM.IMCN ---
Assessment and Plan Assessment and plan (1) Colonic mass: Code(s): K63.89 - Other specified diseases of intestine Status: Acute Assessment and Plan: Patient status post hand assisted laparoscopic right hemicolectomy #1 As per surgery in regards to DVT prophylaxis, advancement of diet, discharge planning, PT/OT Hospitalist were consulted for further medical management with patient's history of atrial fibrillation, COPD, dyslipidemia (2) Atrial fibrillation: Qualifiers: Atrial fibrillation type: unspecified Qualified Code(s): I48.91 - Unspecified atrial fibrillation Code(s): I48.91 - Unspecified atrial fibrillation Status: Acute Assessment and Plan: Seems to be stable and rate is well controlled. Will continue Sotolol. Currently Surgery has the patient on Lovenox 40 mg DVT prophylaxis which is not full dosing for Afib. Dr. Lang recommends restarting Xarelto tomorrow Continue monitoring. (3) Bladder neck contracture: Code(s): N32.0 - Bladder-neck obstruction Status: Acute Assessment and Plan: Urology was consulted during the patient's surgery due to decreased urine output. Cystoscopy was performed which showed bladder neck contracture. Jacobs catheter was placed but it has already been removed and starting a voiding trial today. Patient is leaking urine and bladder scan showed greater than 580 cc of urine in his bladder, he was able to urinate about 150 cc out but scan was still showing greater than 550 in his bladder. I spoke with the urologist who recommends replacing Jacobs catheter at this time Appreciate urology is input. (4) COPD (chronic obstructive pulmonary disease): Code(s): J44.9 - Chronic obstructive pulmonary disease, unspecified Status: Acute Assessment and Plan: Will continue the patient's albuterol inhaler and breathing treatments as needed. Will continue his Stiolto from home if he has the medication, otherwise it is nonformulary. (5) Chronic respiratory failure: Code(s): J96.10 - Chronic respiratory failure, unspecified whether with hypoxia or hypercapnia Status: Acute Assessment and Plan: At his baseline oxygenation. Feeling well without any changes to his chronic respiratory symptoms. HPI Data of Consult Consult date: 01/31/21 Requesting Physician: Frances Lang MD Primary Care Provider: Antoine Fernandes MD Consult Narrative Narrative: Pedro Angelo is a 70 year old male with a history of chronic respiratory failure on 2-3 L of oxygen throughout the day, COPD, HLD, Atrial fibrillation on Xarleto, who was admitted after an outpatient hand assisted laparoscopic right hemicolectomy by Dr. Lang. The patient was recently in the hospital in June of 2020 with a GI bleed and had a colonoscopy done at time showing possible cause from Xarelto with gastritis, multiple large polyps and hemorrhoids. Patient was discharged and continued on his medications as prescribed and had a follow-up colonoscopy with Dr. Strong which found a malignant-appearing: Mass at the ascending colon. Patient was referred to a general surgeon Dr. Lang and underwent surgery yesterday. He reports feeling well after his surgery yesterday, he has been up walking around without any issues. He tolerated breakfast without any issues. He denies passing any gas or bowel movements yet. He is reporting some leaking of urine which is unusual. He can only urinate a small amount which he states is normal for him. He denies any abdominal pain or distension. Denies any fevers, chills, nausea, vomiting, shortness of breath, chest pain, changes to his cough, leg swelling, calf pain, or any other symptoms at this ti
[2021-01-31] MEDS: PANTOPRAZOLE 40 MG TABLET PO (09:33)
[2021-01-31 11:34] LABS: Glucose Point of Care 103 mg/dl (65-105)
[2021-01-31] MEDS: SOTALOL HCL 80 MG TABLET PO ×2 (12:02→22:17)
--- NOTE | 2021-01-31 13:32 | PC.NURSE ---
patient voided 200 cc into urinal, bladder scan showed 330 cc in bladder still. patient denies pain, states that walking seems to help urination and that the urine dribbling has decreased. urgency and frequency is still occurring
--- NOTE | 2021-01-31 15:19 | PC.NURSE ---
spoke with Jennifer Valle about this patient. will put in orders for bladder scan PRN. urology okay with allowing patient to keep apple out because patient only had 330 left in last bladder scan and is not in any discomfort
[2021-01-31] MEDS: ALVIMOPAN 12 MG CAPSULE PO (22:17)
[2021-02-01] VITALS (17 sets, daily range): BP systolic 115–125; BP diastolic 58–71; PULSE 56–98; RESP 14–22; TEMP 36.2–36.7; O2SAT 93–99
--- NOTE | 2021-02-01 01:33 | PCRCNOTE ---
Window of time for administration has passed. See next scheduled administration.
[2021-02-01 05:50] LABS: Hematocrit 39.9 % (42.0-52.0); Hemoglobin 12.4 g/dL (14.0-18.0); Mean Corpuscular HGB Conc 31.1 g/dl (32-36); Mean Corpuscular Volume 90.1 fl (80-100); Mean Platelet Volume 12.7 fl (7.4-10.4); Platelet Count Result 120 k/mm3 (150-375); Red Blood Count 4.43 M/mm3 (4.6-6.20); White Blood Count 8.5 K/mm3 (4.5-10.0)
--- NOTE | 2021-02-01 05:55 | PCRCNOTE ---
Window of time for administration has passed. See next scheduled administration.
[2021-02-01 06:09] LABS: Anion Gap 9 mmol/L (8-16); Blood Urea Nitrogen 15 mg/dL (9-20); Calcium 9.1 mg/dL (8.4-10.2); Carbon Dioxide 26 mmol/L (22-30); Chloride 103 mmol/L (98-107); Estimated CRCL calculation 63 ml/min; Estimated Glomerular Filt Rate > 60; Glucose 91 mg/dL (65-110); Potassium 4.1 mmol/L (3.4-5.0); Sodium 138 mmol/L (137-145)
--- NOTE | 2021-02-01 09:22 | PM.IMPN ---
Progress Note: A&P Assessment and Plan (1) Colonic mass: Code(s): K63.89 - Other specified diseases of intestine Status: Acute Assessment and Plan: Patient status post hand assisted laparoscopic right hemicolectomy #2 As per surgery in regards to DVT prophylaxis, advancement of diet, discharge planning, PT/OT Hospitalist were consulted for further medical management with patient's history of atrial fibrillation, COPD, dyslipidemia Patient is medically cleared from my perspective to be discharged home to continue all his medications as prescribed (2) Atrial fibrillation: Qualifiers: Atrial fibrillation type: unspecified Qualified Code(s): I48.91 - Unspecified atrial fibrillation Code(s): I48.91 - Unspecified atrial fibrillation Status: Acute Assessment and Plan: Seems to be stable and rate is well controlled. Will continue Sotolol. Dr. Lang talked to me yesterday and recommended restarting Xarelto today. He did receive his Lovenox injection this morning, will restart his Xarelto this evening. Continue monitoring. (3) Bladder neck contracture: Code(s): N32.0 - Bladder-neck obstruction Status: Acute Assessment and Plan: Urology was consulted during the patient's surgery due to decreased urine output. Cystoscopy was performed which showed bladder neck contracture. Jacobs catheter was placed but it has already been removed and starting a voiding trial today. Patient was having urinary retention and leaking yesterday. Urology evaluated him again and discussed options. It was decided that the patient would not get a Jacobs catheter. He states he has been urinating much better, like he does at home. He has not been having any dripping issues. Will have him follow-up with urology as an outpatient for further evaluation monitoring. (4) COPD (chronic obstructive pulmonary disease): Code(s): J44.9 - Chronic obstructive pulmonary disease, unspecified Status: Acute Assessment and Plan: Will continue the patient's albuterol inhaler and breathing treatments as needed. Will continue his Stiolto from home if he has the medication, otherwise it is nonformulary. (5) Chronic respiratory failure: Code(s): J96.10 - Chronic respiratory failure, unspecified whether with hypoxia or hypercapnia Status: Acute Assessment and Plan: At his baseline oxygenation. Feeling well without any changes to his chronic respiratory symptoms. Time Spent With Patient Time with patient: 25 - 35 minutes Subjective Date/time seen: 02/01/21 09:22 Interval history: Date of Service 02/01/21: He is feeling well today. Urinating a lot better, not having any leaking issues with urination like yesterday. He is walking around. Baseline SOB and cough without changes. Only abdominal pain is from the incisional site. Denies any fevers, chills, nausea, vomiting, leg swelling, calf pain, chest pain, shortness of breath, cough, or any other symptoms at this time. Review of Systems Review of Systems: All systems reviewed & are unremarkable except as noted in HPI and below Exam Narrative: General: 70-year-old man sitting up on the side of the bed resting comfortably on 3 L via nasal cannula. Appears comfortable. In no acute distress. Skin: No jaundice or cyanosis. Good skin turgor. Neck: Full range of motion. Supple. Respiratory: Lungs are clear to auscultation bilaterally. No wheezing, rales or rhonchi auscultated. No bony chest wall tenderness. Cardiovascular: The heart has a regular rate and rhythm without murmur. Lower extremities: No lower extremity edema. Distal pulses are easily palpated. No calf tenderness to palpation. Elan
[2021-02-01] MEDS: ROSUVASTATIN 10 MG TABLET 40 MG PO (09:39)
[2021-02-01] MEDS: ALVIMOPAN 12 MG CAPSULE PO ×2 (09:39→22:07)
[2021-02-01] MEDS: ENOXAPARIN 40 MG/0.4 ML SYRINGE SUB-Q (09:39)
[2021-02-01] MEDS: PANTOPRAZOLE 40 MG TABLET PO (09:39)
[2021-02-01] MEDS: SOTALOL HCL 80 MG TABLET PO ×2 (09:39→22:07)
[2021-02-01] MEDS: FERROUS SULFATE 324 MG TABLET PO (09:40)
[2021-02-01] MEDS: ALBUTEROL SULFATE (*SP) AEROSOL 1 PUFF 2 PUFF INHALATION (15:44)
--- NOTE | 2021-02-01 16:53 | PM.PNGS ---
Progress Note: A&P Assessment and Plan (1) Cancer of right colon: Code(s): C18.2 - Malignant neoplasm of ascending colon Status: Acute Assessment and Plan: doing well, encourage OOB/IS, clears, await ROBF, await path will go ahead and restart Xarelto recheck CBC in morning and if doing well most likely patient will be discharged. (2) Bladder neck contracture: Code(s): N32.0 - Bladder-neck obstruction Status: Acute Assessment and Plan: appreciate urology input, apple out yesterday and pt believes urination is nearly back to baseline. Subjective Subjective Date/Time Seen: 02/01/21 16:53 Post Op day: 2 Patient reports: no new complaints, feels better and tolerating liquids well Interval history: The patient is lying in bed when I entered the room. He states he is feeling okay. Has not yet started his Xarelto. Has had several loose stools between yesterday afternoon and now. Review of Systems Review of Systems: All systems reviewed & are unremarkable except as noted in HPI and below Cardiovascular: Comments: History of AFib in the past and is on Xarelto Gastrointestinal: Gastrointestinal: Denies bloating and Denies vomiting Genitourinary: Comments: States he has urinated a couple times okay. Exam Const: General: cooperative, comfortable and no acute distress Resp: Effort & Inspection: normal respiratory effort Auscultation: clear to auscultation bilaterally Cardio: Rate: regular rate Rhythm: regular rhythm GI: Inspection: normal to inspection, distended and incision ( clean and dry with surgical glue them.) Auscultation: normal bowel sounds Rectal Exam: deferred Objective Data Vital Signs Vital Signs: Vital Signs - 24 hr 01/31/21 20:00 01/31/21 22:00 01/31/21 22:15 Temperature 36.4 C Pulse Rate 63 76 Respiratory Rate 16 Blood Pressure 129/59 L Pulse Oximetry 99 99 01/31/21 22:17 02/01/21 00:00 02/01/21 01:00 Temperature 36.6 C Pulse Rate 93 80 87 Respiratory Rate 16 Blood Pressure 125/65 Pulse Oximetry 94 02/01/21 04:00 02/01/21 07:11 02/01/21 08:00 Temperature 36.4 C L Pulse Rate 98 84 72 Respiratory Rate 22 H Blood Pressure 116/62 Pulse Oximetry 94 02/01/21 08:31 02/01/21 09:39 02/01/21 09:45 Temperature 36.2 C L Pulse Rate 69 74 Respiratory Rate 14 Blood Pressure 115/71 Pulse Oximetry 96 96 02/01/21 12:00 02/01/21 13:16 02/01/21 15:46 Temperature 36.3 C L Pulse Rate 78 82 80 Respiratory Rate 14 Blood Pressure 120/58 L Pulse Oximetry 93 98 02/01/21 16:00 Temperature Pulse Rate 63 Respiratory Rate Blood Pressure Pulse Oximetry Intake/Output Intake/Output: Intake & Output 01/29/21 01/30/21 01/31/21 02/01/21 23:59 23:59 23:59 23:59 Intake Total 900 3832 1020 Output Total 80 1480 1200 Balance 820 2352 -180 Meds/Results Medications: Active Medications Generic Name Dose Route Start Last Admin Trade Name Freq PRN Reason Stop Dose Admin Acetaminophen 500 mg 01/31/21 18:00 Acetaminophen 500 Mg Tablet PO Q6H PRN Mild Pain (1-3) or Fever Hydrocodone Bitart/Acetaminophen 1 tab 01/30/21 14:04 Hydrocodone/Acetaminophen (*Crx) 5-325 Mg Tablet PO Q4H PRN Pain Rated 4-6 Albuterol 2.5 mg 01/31/21 09:29 Albuterol Sulfate Neb 2.5 Mg/3 Ml Inh INHALATION Q4HRT PRN Dyspnea Albuterol 2 puff 01/31/21 14:00 02/01/21 15:44 Albuterol Sulfate (*Sp) Aerosol 1 Puff INHALATION 2 puff Q6HRT AXEL Administration Alvimopan 12 mg 01/31/21 21:00 02/01/21 09:39 Alvimopan 12 Mg Capsule PO 02/07/21 20:59 12 mg Q12HR AXEL Administration Ferrous Sulfate 324 mg 02/01/21 09:00 02/01/21 09:40 Ferrous Sulfate 324 Mg Tablet PO 324 mg DAILY AXEL Administration Miscellaneous Information 0 each 01/31/21 09:50 Stiolto Nonformulary Rn Checking To See If Will Be Brought From Home Or If We Should Sub XX 03/02/21
[2021-02-01] MEDS: RIVAROXABAN 20 MG TABLET PO (22:07)
[2021-02-02] VITALS (9 sets, daily range): BP systolic 96–114; BP diastolic 57–75; PULSE 64–93; RESP 14–18; TEMP 36–36.4; O2SAT 93–100
[2021-02-02 06:01] LABS: Hemoglobin 12.1 g/dL (14.0-18.0); Mean Corpuscular Hemoglobin 28.4 pg (26-34); Mean Corpuscular Volume 91.5 fl (80-100); Mean Platelet Volume 12.4 fl (7.4-10.4); Platelet Count Result 108 k/mm3 (150-375); Red Blood Count 4.26 M/mm3 (4.6-6.20); Red Cell Distribution Width 16.8 % (11.5-14.5); White Blood Count 6.2 K/mm3 (4.5-10.0)
[2021-02-02 06:21] LABS: Anion Gap 6 mmol/L (8-16); Blood Urea Nitrogen 16 mg/dL (9-20); Carbon Dioxide 31 mmol/L (22-30); Chloride 101 mmol/L (98-107); Estimated CRCL calculation 63 ml/min; Estimated Glomerular Filt Rate > 60; Glucose 91 mg/dL (65-110); Sodium 138 mmol/L (137-145)
[2021-02-02] MEDS: PANTOPRAZOLE 40 MG TABLET PO (08:03)
[2021-02-02] MEDS: SOTALOL HCL 80 MG TABLET PO (08:03)
[2021-02-02] MEDS: FERROUS SULFATE 324 MG TABLET PO (08:03)
[2021-02-02] MEDS: ALVIMOPAN 12 MG CAPSULE PO (08:03)
[2021-02-02] MEDS: ROSUVASTATIN 10 MG TABLET 40 MG PO (08:04)
[2021-02-02] MEDS: ALBUTEROL SULFATE (*SP) AEROSOL 1 PUFF 2 PUFF INHALATION (11:18)
--- NOTE | 2021-02-02 11:28 | PM.IMPN ---
Progress Note: A&P Assessment and Plan (1) Colonic mass: Code(s): K63.89 - Other specified diseases of intestine Status: Acute Assessment and Plan: Patient status post hand assisted laparoscopic right hemicolectomy #3 As per surgery in regards to DVT prophylaxis, advancement of diet, discharge planning, PT/OT Hospitalist were consulted for further medical management with patient's history of atrial fibrillation, COPD, dyslipidemia Patient is medically cleared from my perspective to be discharged home to continue all his medications as prescribed (2) Atrial fibrillation: Qualifiers: Atrial fibrillation type: unspecified Qualified Code(s): I48.91 - Unspecified atrial fibrillation Code(s): I48.91 - Unspecified atrial fibrillation Status: Acute Assessment and Plan: Seems to be stable and rate is well controlled. Will continue Sotolol. Dr. Lang talked to me yesterday and recommended restarting Xarelto today. He did receive his Lovenox injection this morning, will restart his Xarelto this evening. Continue monitoring. (3) Bladder neck contracture: Code(s): N32.0 - Bladder-neck obstruction Status: Acute Assessment and Plan: Urology was consulted during the patient's surgery due to decreased urine output. Cystoscopy was performed which showed bladder neck contracture. Jacobs catheter was placed but it has already been removed and starting a voiding trial today. Patient was having urinary retention and leaking yesterday. Urology evaluated him again and discussed options. It was decided that the patient would not get a Jacobs catheter. He states he has been urinating much better, like he does at home. He has not been having any dripping issues. Will have him follow-up with urology as an outpatient for further evaluation monitoring. (4) COPD (chronic obstructive pulmonary disease): Code(s): J44.9 - Chronic obstructive pulmonary disease, unspecified Status: Acute Assessment and Plan: Will continue the patient's albuterol inhaler and breathing treatments as needed. Will continue his Stiolto from home if he has the medication, otherwise it is nonformulary. (5) Chronic respiratory failure: Code(s): J96.10 - Chronic respiratory failure, unspecified whether with hypoxia or hypercapnia Status: Acute Assessment and Plan: At his baseline oxygenation. Feeling well without any changes to his chronic respiratory symptoms. Time Spent With Patient Time with patient: 25 - 35 minutes Subjective Date/time seen: 02/02/21 11:28 Interval history: Date of Service 02/02/21: He is feeling great today. Had two bowel movements. Been urinating without any issues. Breathing is at baseline, hoping to go home today. Only abdominal pain is from the incisional site. Denies any fevers, chills, nausea, vomiting, leg swelling, calf pain, chest pain, shortness of breath, cough, or any other symptoms at this time. Review of Systems Review of Systems: All systems reviewed & are unremarkable except as noted in HPI and below Exam Narrative: General: 70-year-old man sitting up on the side of the bed resting comfortably on 3 L via nasal cannula. Appears comfortable. In no acute distress. Skin: No jaundice or cyanosis. Good skin turgor. Neck: Full range of motion. Supple. Respiratory: Lungs are clear to auscultation bilaterally. No wheezing, rales or rhonchi auscultated. No bony chest wall tenderness. Cardiovascular: The heart has a regular rate and rhythm without murmur. Lower extremities: No lower extremity edema. Distal pulses are easily palpated. No calf tenderness to palpation. Gastrointestinal: Surgical incision s
--- NOTE | 2021-02-02 12:39 | PM.DS ---
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 DS: Discharge Diagnosis Discharge Diagnosis (1) Adenomatous colon polyp: Code(s): D12.6 - Benign neoplasm of colon, unspecified Status: Acute (2) Atrial fibrillation: Qualifiers: Atrial fibrillation type: unspecified Qualified Code(s): I48.91 - Unspecified atrial fibrillation Code(s): I48.91 - Unspecified atrial fibrillation Status: Acute (3) Chronic respiratory failure: Code(s): J96.10 - Chronic respiratory failure, unspecified whether with hypoxia or hypercapnia Status: Acute (4) Bladder neck contracture: Code(s): N32.0 - Bladder-neck obstruction Status: Acute (5) BMI 29.0-29.9,adult: Code(s): Z68.29 - Body mass index [BMI] 29.0-29.9, adult Status: Acute (6) EDILSON and COPD overlap syndrome: Code(s): G47.33 - Obstructive sleep apnea (adult) (pediatric); J44.9 - Chronic obstructive pulmonary disease, unspecified Status: Acute (7) Cancer of right colon: Code(s): C18.2 - Malignant neoplasm of ascending colon Status: Acute Assessment and Plan: this is the main reason for the patient's admission. He was brought in and had a hand assisted right hemicolectomy for the biopsy-proven adenocarcinoma in his right colon. He had a fairly uneventful hospital course. He was up walking the day after surgery. He had no incisional problems. Entereg was used and he began having bowel movements on postop day 2. He did need to get back on his Xarelto. He also had some history some problems with urinary retention see urologist notes and noted bowel on bladder contracture. DS: Summary Hospital Course Reason for hospitalization: Adenocarcinoma right colon with need for surgical intervention Hospital Course: He was brought in and had a hand assisted right hemicolectomy for the biopsy-proven adenocarcinoma in his right colon. He had a fairly uneventful hospital course. He was up walking the day after surgery. He had no incisional problems. Entereg was used and he began having bowel movements on postop day 2. He did need to get back on his Xarelto. He also had some history some problems with urinary retention see urologist notes and note above on bladder contracture. Status at Discharge Functional status at discharge: independent ambulation Overall status at discharge: patient is not back to baseline ( weight lifting restricted because of his incisions otherwise getting there.) Time Spent with Patient Time attestation: Total time spent providing and/or coordinating discharge services: Time spent: Less than 30 minutes Exam Const: General: cooperative, comfortable, alert and awake Orientation/consciousness: patient oriented x3 HENMT: Head: normal to inspection Mouth: Yes moist mucous membranes Eyes: Sclera: sclerae normal Pupils: Equal, round and reactive pupils present Neck: Neck: normal visual inspection and no JVD Chest: Chest palpation & inspection: normal inspection of the chest Resp: Effort & Inspection: normal respiratory effort Auscultation: clear to auscultation bilaterally Cardio: Jugular venous distension: no JVD Rate: regular rate GI: Inspection: normal to inspection and incision ( Clean and dry with surgical glue in place) Auscultation: normal bowel sounds Neuro: General: patient oriented x3 Cranial nerves: Yes Equal, round and reactive pupils present DS: Data Data Completed and Pending Pending studies at discharge: Pending at discharge 01/30/21 13:26 Surgical [PTH] Routine : This is still pending on discharge. Labs on day of discharge: Labs from last 24 hours 02/02/21 02/02/21 05:18 05:18 WBC 6.2 RBC 4.26 L Hgb 12.1 L Hct 39.0 L MCV 91.5 MCH 28.4 MCHC 31.0 L RDW 16.8 H Plt Count 108 L MPV 12.4 H Sodium 138 Potassium 4.0
== END 2021-02-02 14:10 | disposition home or self-care (01) | DRG 330 ==
LOC: ANH2MED 01-31 07:08
PROVIDERS: Urology; Admitting Provider Surgery; PCP Family Medicine Adolescent Medicine; Visit Provider Surgery
PROC: 0DTF4ZZ Resection of Right Large Intestine, Percutaneous Endoscopic Approach (ICD-10-PCS; CPT 44204; principal; 2021-01-30 12:00)
PROC: 0TJB8ZZ Inspection of Bladder, Via Natural or Artificial Opening Endoscopic (ICD-10-PCS; CPT 52000; 2021-01-30 12:00)
DX: C18.2 Malignant neoplasm of ascending colon (principal); J96.10 Chronic respiratory failure, unspecified whether with hypoxia or hypercapnia; I48.91 Unspecified atrial fibrillation; J44.9 Chronic obstructive pulmonary disease, unspecified; N32.0 Bladder-neck obstruction; G47.33 Obstructive sleep apnea (adult) (pediatric); E78.5 Hyperlipidemia, unspecified; E66.3 Overweight; Z68.29 Body mass index [BMI] 29.0-29.9, adult; Z28.21 Immunization not carried out because of patient refusal; Z79.01 Long term (current) use of anticoagulants; Z79.899 Other long term (current) drug therapy; Z85.51 Personal history of malignant neoplasm of bladder; Z87.891 Personal history of nicotine dependence; Z99.81 Dependence on supplemental oxygen; Z86.010 Personal history of colon polyps
CPT/HCPCS: 36415; 80048; 82948; 85025; 85027; 88309; 94640; A9270; C1769; C9803; J0131; J0690; J1100; J1170; J1650; J1885; J2250; J2405; J2704; J2710; J3010; J7030; J7120; U0003; U0005

== ENCOUNTER 2021-02-06 13:42 | Outpatient (CLI) | payer MEDICARE, SELFPAY ==
[2021-02-06 11:23] LABS: Basophils Absolute Auto 0.1 K/mm3 (0.0-0.1); Eosinophils Absolute Auto 0.4 K/mm3 (0-0.3); Eosinophils Percent Auto 4.3 % (0-4.4); Hematocrit 43.3 % (42.0-52.0); Immature Granulocyte Absolute 0.03 K/mm3 (0.00-0.031); Immature Granulocyte Percent A 0.3 % (0-0.5); Lymphocytes Absolute Auto 1.82 K/mm3 (0.9-3.2); Lymphocytes Percent Auto 20.2 % (18.3-44.2); Mean Corpuscular Hemoglobin 27.8 pg (26-34); Mean Corpuscular Volume 92.7 fl (80-100); Monocytes Absolute Auto 0.6 K/mm3 (0.1-0.6); Neutrophils Absolute Auto 6.1 K/mm3 (1.3-6.7); Neutrophils Percent Auto 67.2 % (45.5-73.1); Platelet Count Result 187 k/mm3 (150-375); Red Blood Count 4.67 M/mm3 (4.6-6.20); Red Cell Distribution Width 16.2 % (11.5-14.5)
[2021-02-06 11:41] LABS: Anion Gap 12 mmol/L (8-16); Blood Urea Nitrogen 14 mg/dL (8-26); Carbon Dioxide 26 mmol/L (22-30); Chloride 102 mmol/L (98-109); Estimated Glomerular Filt Rate > 60; Glucose 123 mg/dL (70-105); Potassium 4.4 mmol/L (3.5-4.9); Sodium 140 mmol/L (138-146)
[2021-02-06 14:13] LABS: Alanine Aminotransferase 37 U/L (4-50); Albumin Level 3.8 g/dL (3.5-5.1); Alkaline Phosphatase 65 U/L (38-126); Aspartate Amino Transferase 51 U/L (17-59); Bilirubin,Total 0.4 mg/dL (0.2-1.3); Calcium 9.6 mg/dL (8.4-10.2)
[2021-02-06 14:44] LABS: Carcinoembryonic Antigen 0.8 ng/mL (0.0-3.0)
[2021-02-06 16:03] LABS: Iron 64 ug/dL (49-181)
[2021-02-06 16:13] LABS: Percent Iron Saturation 20 % (20-50)
== END 2021-02-06 13:43 | disposition home or self-care (01) ==
LOC: ANHLAB 13:42
PROVIDERS: PCP Family Medicine Adolescent Medicine; Visit Provider Internal Medicine Hematology & Oncology
DX: D64.9 Anemia, unspecified (principal); C18.2 Malignant neoplasm of ascending colon
CPT/HCPCS: 36415; 80053; 82378; 82728; 83540; 83550; 85025

== ENCOUNTER 2021-05-08 09:32 | Outpatient (CLI) | payer MEDICARE, SELFPAY ==
[2021-05-08 09:47] LABS: Basophils Absolute Auto 0.1 K/mm3 (0.0-0.1); Basophils Percent Auto 0.7 % (0.2-1.2); Eosinophils Absolute Auto 0.3 K/mm3 (0-0.3); Hematocrit 46.7 % (42.0-52.0); Hemoglobin 14.3 g/dL (14.0-18.0); Immature Granulocyte Absolute 0.03 K/mm3 (0.00-0.031); Immature Granulocyte Percent A 0.3 % (0-0.5); Lymphocytes Absolute Auto 1.86 K/mm3 (0.9-3.2); Lymphocytes Percent Auto 21.6 % (18.3-44.2); Mean Corpuscular HGB Conc 30.6 g/dl (32-36); Mean Corpuscular Hemoglobin 30.1 pg (26-34); Mean Corpuscular Volume 98.3 fl (80-100); Mean Platelet Volume 10.9 fl (7.4-10.4); Monocytes Absolute Auto 0.7 K/mm3 (0.1-0.6); Monocytes Percent Auto 8.3 % (2.6-8.5); Neutrophils Absolute Auto 5.7 K/mm3 (1.3-6.7); Neutrophils Percent Auto 66.1 % (45.5-73.1); Platelet Count Result 153 k/mm3 (150-375); Red Blood Count 4.75 M/mm3 (4.6-6.20); Red Cell Distribution Width 14.8 % (11.5-14.5); White Blood Count 8.6 K/mm3 (4.5-10.0)
[2021-05-08 09:52] LABS: Blood Urea Nitrogen 11 mg/dL (8-26); Carbon Dioxide 29 mmol/L (22-30); Chloride 104 mmol/L (98-109); Estimated Glomerular Filt Rate > 60; Glucose 92 mg/dL (70-105); Potassium 4.5 mmol/L (3.5-4.9); Sodium 143 mmol/L (138-146)
[2021-05-08 10:46] LABS: Alanine Aminotransferase 24 U/L (4-50); Albumin Level 3.9 g/dL (3.5-5.1); Alkaline Phosphatase 71 U/L (38-126); Anion Gap 4 mmol/L (8-16); Aspartate Amino Transferase 28 U/L (17-59); Bilirubin,Total 0.3 mg/dL (0.2-1.3); Blood Urea Nitrogen 12 mg/dL (9-20); Calcium 8.6 mg/dL (8.4-10.2); Carbon Dioxide 29 mmol/L (22-30); Chloride 107 mmol/L (98-107); Estimated Glomerular Filt Rate > 60; Glucose 94 mg/dL (65-110); Potassium 4.4 mmol/L (3.4-5.0); Sodium 140 mmol/L (137-145)
[2021-05-08 11:17] LABS: Carcinoembryonic Antigen 1.1 ng/mL (0.0-3.0)
== END 2021-05-08 09:33 | disposition home or self-care (01) ==
LOC: ANHLAB 09:34
PROVIDERS: PCP Family Medicine Adolescent Medicine; Visit Provider Internal Medicine Hematology & Oncology
DX: C18.2 Malignant neoplasm of ascending colon (principal)
CPT/HCPCS: 36415; 80053; 82378; 85025

== ENCOUNTER 2021-05-19 08:26 | Outpatient (CLI) | payer MEDICARE, SELFPAY ==
--- NOTE | ~2021-05-19 | CT_ITS ---
EXAMINATION:CT lung screening DATE: 05/19/2021 08:41 INDICATION: Personal history of nicotine dependence. Smoker who quit 2 years ago with 37 pack year hi story. TECHNIQUE: Computed tomography (CT) of the chest was performed without intravenous contrast. Automate d exposure control and iterative reconstruction technique were employed. The dose-length product (DLP ) was 286.95 mGy-cm. COMPARISON: Chest CT 04/30/2020, CT abdomen and pelvis 12/30/2020 FINDINGS: There is moderate emphysema. Again seen is mild scarring at right lung apex. Calcified righ t lung nodules and calcified subcarinal lymph nodes are consistent with old granulomatous disease. Ag ain seen is mild scarring at left lung base. There is mild atelectasis in lingula. No pleural effusio n. The heart size is normal. There are coronary artery calcifications. No pericardial effusion. There is a small sliding hiatal hernia. Partially visualized is a stent graft in abdominal aorta. There ar e stones in right kidney measuring up to 4 mm. There is a 3 mm stone in left kidney. There is severe left hydronephrosis. There is moderate atrophy of left kidney. IMPRESSION: 1. Lung-RADS category 2S: Benign appearance or behavior. Continue annual screening with noncontrast l ow-dose chest CT in 12 months. 2. Stable severe left hydronephrosis with moderate atrophy of left kidney. Reviewed, dictated and finalized at location A. IMPRESSION: 1. Lung-RADS category 2S: Benign appearance or behavior. Continue annual screen ing with noncontrast low-dose chest CT in 12 months. 2. Stable severe left hydronephrosis with moderate atrophy of left kidney.
== END 2021-05-19 08:27 | disposition home or self-care (01) ==
LOC: ANHIMG 08:30
PROVIDERS: PCP Family Medicine Adolescent Medicine; Visit Provider Nurse Practitioner Family
DX: Z12.2 Encounter for screening for malignant neoplasm of respiratory organs (principal); Z87.891 Personal history of nicotine dependence
CPT/HCPCS: 71271

== ENCOUNTER 2021-07-04 11:12 | Emergency (ER) | payer MEDICARE, SELFPAY ==
--- NOTE | ~2021-07-04 | XR_ITS ---
EXAMINATION: XR chest 2V DATE: 07/04/2021 12:18 INDICATION: COPD. Atrial fibrillation. Lightheadedness. TECHNIQUE: frontal and lateral views of the chest were obtained. COMPARISON: Chest radiograph dated 10/31/2020 FINDINGS: With hyperexpansion of lungs with increased retrosternal clear space and lucency in the upper lung zo tom consistent with emphysema better appreciated on prior CT. Mild opacities at the left lung base an d favor atelectasis over pneumonia. No pleural effusion or pneumothorax. Heart size is normal with bi lateral paracardial fat pads. Moderate thoracic spondylosis. Mild anterior wedging of a few mid thora cic vertebral bodies. Partially visualized abdominal aortic endoluminal stent grafting in the upper a bdomen. IMPRESSION: 1. Emphysema with mild left basilar opacities and favor atelectasis over pneumonia. Reviewed, dictated and finalized at location A. IMPRESSION: 1. Emphysema with mild left basilar opacities and favor atelectasis over pneumo kasia.
--- NOTE | 2021-07-04 11:13 | ECG_ITS ---
Measurements Intervals [place] Rate: 74 P: 85 MO: 148 QRS: -26 QRSD: 93 T: 40 QT: 356 QTc: 397 Interpretive Statements SINUS RHYTHM DELAYED PRECORDIAL R/S TRANSITION INFERIOR INFARCT, AGE INDETERMINATE ABNORMAL ECG Electronically Signed On 07-04-2021 11:53:29 CDT by Alexi Prince D.O.
[2021-07-04 11:16] VITALS: BP 143/63; PULSE 79; RESP 22; TEMP 36.9; O2SAT 98
[2021-07-04 11:28] LABS: Basophils Absolute Auto 0.1 K/mm3 (0.0-0.1); Basophils Percent Auto 0.6 % (0.2-1.2); Eosinophils Absolute Auto 0.2 K/mm3 (0-0.3); Eosinophils Percent Auto 2.3 % (0-4.4); Hematocrit 47.2 % (42.0-52.0); Hemoglobin 14.8 g/dL (14.0-18.0); Immature Granulocyte Absolute 0.02 K/mm3 (0.00-0.031); Immature Granulocyte Percent A 0.2 % (0-0.5); Immature Platelet Fraction Pct 9.2 % (0.9-11.2); Lymphocytes Percent Auto 19.2 % (18.3-44.2); Mean Corpuscular HGB Conc 31.4 g/dl (32-36); Mean Corpuscular Hemoglobin 30.4 pg (26-34); Mean Corpuscular Volume 96.9 fl (80-100); Mean Platelet Volume 11.4 fl (7.4-10.4); Monocytes Absolute Auto 0.6 K/mm3 (0.1-0.6); Monocytes Percent Auto 7.1 % (2.6-8.5); Neutrophils Absolute Auto 5.9 K/mm3 (1.3-6.7); Neutrophils Percent Auto 70.6 % (45.5-73.1); Platelet Count Result 155 k/mm3 (150-375); Red Blood Count 4.87 M/mm3 (4.6-6.20); Red Cell Distribution Width 13.8 % (11.5-14.5); White Blood Count 8.3 K/mm3 (4.5-10.0)
[2021-07-04 11:36] LABS: Alanine Aminotransferase 23 U/L (6-50); Albumin Level 3.7 g/dL (3.5-5.1); Alkaline Phosphatase 68 U/L (38-126); Anion Gap 3 mmol/L (8-16); Aspartate Amino Transferase 29 U/L (17-59); Bilirubin,Total 0.3 mg/dL (0.2-1.3); Blood Urea Nitrogen 13 mg/dL (9-20); Calcium 8.9 mg/dL (8.4-10.2); Carbon Dioxide 31 mmol/L (22-30); Chloride 103 mmol/L (98-107); Estimated CRCL calculation 69 ml/min; Estimated Glomerular Filt Rate > 60; Glucose 93 mg/dL (65-110); Lipase 97 U/L (23-300); Potassium 4.8 mmol/L (3.4-5.0); Sodium 137 mmol/L (137-145)
[2021-07-04 11:37] LABS: INR 1.2; Partial Thromboplastin Time 31.6 SECONDS (22.3-36.8); Prothrombin Time 14.9 Seconds (11.1-14.7)
[2021-07-04] MEDS: ASPIRIN 81 MG CHEWABLE TABLET 324 MG PO (11:45)
[2021-07-04 11:48] LABS: Troponin I < 0.012 ng/mL (0.000-0.034)
--- NOTE | 2021-07-04 13:41 | ED.ARRPALP ---
HPI - Arrhythmia/Palpitations General Chief Complaint: Arrhythmia/Palpitations Stated Complaint: afib Time Seen by Provider: 07/04/21 11:23 History of Present Illness HPI narrative: Patient is a 71-year-old male who presents ER with palpitations of the heart. Ongoing for 3 days intermittently. Notices heart rate has been as high as 140 bpm as low as 40 bpm. Patient has history of atrial fibrillation. He is anticoagulated on Xarelto and takes sotalol for rate control. No increase in oxygen requirement, he wears 3 L at baseline. No fevers or chills or sweats. No productive cough. No additional concerns. Related Data Home Medications Medication Instructions Recorded Confirmed Xarelto 20 mg PO HS 05/04/19 04/24/21 rosuvastatin 40 mg PO DAILY 05/04/19 04/24/21 Stiolto Respimat 2 puff INHALATION DAILY 10/31/20 04/24/21 albuterol sulfate 2.5 mg INHALATION Q4-6H PRN 01/21/21 04/24/21 Allergies Allergy/AdvReac Type Severity Reaction Status Date / Time No Known Allergies Allergy Unknown Verified 07/04/21 11:46 Review of Systems Review of Systems: All systems reviewed & are unremarkable except as noted in HPI and below Constitutional: Constitutional: Denies chills, Denies fever(s) and Denies weakness ENT: Denies nasal congestion and Denies sore throat Cardiovascular: Cardiovascular: Denies chest pain, Reports rapid heart rate and Denies radiating jaw, neck or arm pain Respiratory: Respiratory: Denies chest congestion, Denies cough and Reports dyspnea (chronic) Gastrointestinal: Gastrointestinal: Denies abdominal pain, Denies nausea and Denies vomiting Psychiatric: Psychiatric: Denies anxiety and Denies depression [facility] Past Medical History Medical History Adenomatous colon polyp Adult idiopathic generalized osteoporosis Ankle fracture, left Ankle fracture, right Arthritis Atrial fibrillation Atrial fibrillation with RVR Bladder cancer Surgery plus chemotherapy Cataracts, bilateral Chronic respiratory failure On 2-3 L of oxygen throughout the day Colonic mass COPD (chronic obstructive pulmonary disease) Erosive gastritis External hemorrhoid, bleeding 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 Hyperlipidemia Kidney stone Obstructive sleep apnea Intolerant of CPAP machine Pneumonia Rectal bleeding Symptomatic anemia Tobacco abuse UTI (urinary tract infection) Surgical History Surgical History H/O colectomy RIGHT COLECTOMY 01/30/21 H/O cystoscopy Excision of bladder cancer x2 H/O vascular surgery Stent in RLE History of kidney surgery Due to large kidney stone S/P AAA repair S/P cataract surgery Right eye pupil irregular shaped due to surgery Family History Family History Father Family history of obesity Family history of cardiovascular disease Family history of coronary artery disease Sibling Family history of congenital heart disease, Onset Age: 60 Family history of respiratory disorder, Onset Age: 73 Mother Family history of primary malignant neoplasm of liver, Onset Age: 62 Social History Social History Social History: The patient is . He has 2 children. They are both boys and he desires to have both of his sons as the durable power divorce attorney for healthcare. The patient desires to be a full code. 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 The patient is a former smoker. No alcohol marijuana or illicit drugs. Smoking packs per day: 1.25 Smoking cigarettes per day: 25.0 Years smoked: 30 Smoking pack-years: 37.50 Second hand tobacco smoke exposure: No Smoking end date: 02/22/19 Additional smoking assessment comments: pt states he will take a couple puffs here or there Alcoh
[2021-07-04 14:00] VITALS: BP 117/77; PULSE 78; RESP 16; O2SAT 97
== END 2021-07-04 14:02 | disposition home or self-care (01) ==
PROVIDERS: Emergency Provider Emergency Medicine; PCP Family Medicine Adolescent Medicine
DX: I48.91 Unspecified atrial fibrillation (principal); J96.10 Chronic respiratory failure, unspecified whether with hypoxia or hypercapnia; J43.9 Emphysema, unspecified; E78.5 Hyperlipidemia, unspecified; G47.33 Obstructive sleep apnea (adult) (pediatric); M19.90 Unspecified osteoarthritis, unspecified site; M81.8 Other osteoporosis without current pathological fracture; Z85.51 Personal history of malignant neoplasm of bladder; Z92.21 Personal history of antineoplastic chemotherapy; Z87.01 Personal history of pneumonia (recurrent); Z87.442 Personal history of urinary calculi; Z87.440 Personal history of urinary (tract) infections; Z86.010 Personal history of colon polyps; Z79.01 Long term (current) use of anticoagulants; Z90.49 Acquired absence of other specified parts of digestive tract; Z98.42 Cataract extraction status, left eye; Z98.41 Cataract extraction status, right eye; Z87.891 Personal history of nicotine dependence; I45.10 Unspecified right bundle-branch block; R94.31 Abnormal electrocardiogram [ECG] [EKG]
CPT/HCPCS: 36415; 71046; 80053; 83690; 84484; 85025; 85055; 85610; 85730; 93005; 99284; A9270

== ENCOUNTER 2021-07-25 08:55 | Outpatient (CLI) | payer MEDICARE, SELFPAY ==
--- NOTE | ~2021-07-25 | CT_ITS ---
EXAMINATION: CT abdomen pelvis wo con DATE: 07/25/2021 09:19 INDICATION: Malignant neoplasm of the ascending colon TECHNIQUE: Computed tomography (CT) of the abdomen and pelvis was performed without intravenous contr ast. Automated exposure control and iterative reconstruction technique were employed. The dose-length product was 1129.89 mGy-cm. COMPARISON: None FINDINGS: There is wall thickening in the bronchi of the bilateral lower lobes. Small regions of tree-in-bud op acity in the basilar left lower lobe and small region infrahilar right lower lobe consistent with bro nchitis and pneumonia. Heart size is normal. Atherosclerotic coronary artery calcification. Unchanged very small pericardial effusion. Small sliding-type hiatal hernia. Bladder, pancreas and bilateral a drenal glands are normal. A couple hepatic and splenic calcifications consistent with old granulomato us disease. A few nonobstructing right renal stones the largest measuring 5 mm at a lower pole calyx. Moderate diffuse cortical thinning of the left kidney with multiple prominent parapelvic cysts. Unch anged infrarenal abdominal aortic aneurysm measuring up to 5.5 x 5.3 cm with aortobiiliac endoluminal stent grafting extending into the bilateral common iliac arteries. There are few scattered colonic d iverticula without adjacent inflammatory change to suggest diverticulitis. Interval resection of the cecum with right lower quadrant ileocolic anastomosis. No bowel obstruction. Partially decompressed b ladder is unremarkable. No free intraperitoneal gas or fluid. No pathologically enlarged abdominal or pelvic lymphadenopathy. Severe spondylosis at the lumbosacral junction. Moderate bilateral hip osteo arthritis. Small region of osteonecrosis at the anterior left femoral head. IMPRESSION: 1. Bronchial wall thickening and some tree-in-bud opacities in bilateral lower lobes consistent with bronchitis and developing pneumonia. 2. No acute intra-abdominal/pelvic process. 3. Unchanged 5.5 cm stented infrarenal abdominal aortic aneurysm. 4. Small sliding-type hiatal hernia. 5. Nonobstructing nephrolithiasis. 6. Osteonecrosis at the left femoral head. Reviewed, dictated and finalized at location B.
== END 2021-07-25 08:56 | disposition home or self-care (01) ==
PROVIDERS: PCP Family Medicine Adolescent Medicine; Visit Provider Internal Medicine Hematology & Oncology
DX: C18.2 Malignant neoplasm of ascending colon (principal); R91.8 Other nonspecific abnormal finding of lung field; I71.4 Abdominal aortic aneurysm, without rupture; N20.0 Calculus of kidney; M87.9 Osteonecrosis, unspecified
CPT/HCPCS: 74176

== ENCOUNTER 2021-07-31 10:25 | Outpatient (CLI) | payer MEDICARE, SELFPAY ==
[2021-07-31 10:56] LABS: Basophils Absolute Auto 0.1 K/mm3 (0.0-0.1); Basophils Percent Auto 0.6 % (0.2-1.2); Eosinophils Absolute Auto 0.2 K/mm3 (0-0.3); Eosinophils Percent Auto 2.4 % (0-4.4); Hematocrit 48.4 % (42.0-52.0); Hemoglobin 15.3 g/dL (14.0-18.0); Immature Granulocyte Absolute 0.06 K/mm3 (0.00-0.031); Immature Granulocyte Percent A 0.6 % (0-0.5); Lymphocytes Absolute Auto 1.49 K/mm3 (0.9-3.2); Lymphocytes Percent Auto 15.3 % (18.3-44.2); Mean Corpuscular HGB Conc 31.6 g/dl (32-36); Mean Corpuscular Hemoglobin 30.4 pg (26-34); Mean Corpuscular Volume 96.2 fl (80-100); Mean Platelet Volume 10.7 fl (7.4-10.4); Monocytes Absolute Auto 0.5 K/mm3 (0.1-0.6); Monocytes Percent Auto 4.8 % (2.6-8.5); Neutrophils Absolute Auto 7.5 K/mm3 (1.3-6.7); Neutrophils Percent Auto 76.3 % (45.5-73.1); Platelet Count Result 221 k/mm3 (150-375); Red Blood Count 5.03 M/mm3 (4.6-6.20); Red Cell Distribution Width 13.2 % (11.5-14.5); White Blood Count 9.8 K/mm3 (4.5-10.0)
[2021-07-31 10:59] LABS: Blood Urea Nitrogen 10 mg/dL (8-26); Carbon Dioxide 31 mmol/L (22-30); Chloride 101 mmol/L (98-109); Estimated Glomerular Filt Rate > 60; Glucose 152 mg/dL (70-105); Ionized Calcium (POC) 1.19 mmol/L (1.11-1.31); Potassium 4.4 mmol/L (3.5-4.9); Sodium 140 mmol/L (138-146)
[2021-07-31 17:14] LABS: Alanine Aminotransferase 28 U/L (6-50); Albumin Level 3.9 g/dL (3.5-5.1); Alkaline Phosphatase 82 U/L (38-126); Anion Gap 5 mmol/L (8-16); Aspartate Amino Transferase 32 U/L (17-59); Blood Urea Nitrogen 12 mg/dL (9-20); Calcium 8.9 mg/dL (8.4-10.2); Carbon Dioxide 31 mmol/L (22-30); Chloride 103 mmol/L (98-107); Estimated Glomerular Filt Rate > 60; Glucose 144 mg/dL (65-110); Potassium 4.5 mmol/L (3.4-5.0); Sodium 139 mmol/L (137-145)
[2021-07-31 17:27] LABS: Bilirubin,Total 0.3 mg/dL (0.2-1.3)
== END 2021-07-31 10:26 | disposition home or self-care (01) ==
LOC: ANHLAB 10:27
PROVIDERS: PCP Family Medicine Adolescent Medicine; Visit Provider Internal Medicine Hematology & Oncology
DX: C18.2 Malignant neoplasm of ascending colon (principal)
CPT/HCPCS: 36415; 80047; 80053; 82378; 85025

== ENCOUNTER 2021-10-10 14:01 | Outpatient (CLI) | payer MEDICARE, SELFPAY ==
--- NOTE | ~2021-10-10 | US_ITS ---
US art doppler w press LE BI INDICATION: arterial disease TECHNIQUE: Segmental pressures and plethysmographic and Doppler waveforms of the brachial and lower e xtremity arteries were obtained. COMPARISON: None. FINDINGS: Right and left brachial artery pressures of 132 mm Hg and 129 mm Hg, respectively, are concordant (no rmal difference <= 30 mmHg). The right ankle-brachial index (JOHNY) is 0.59 (normal >= 0.9-1.0). The right great toe-brachial index (TBI) is 0.38 (normal >= 0.60). The left JOHNY is 0.61. The left TBI is 0.83. IMPRESSION: 1. Diminished bilateral ankle and right toe brachial indices, consistent with moderate peripheral art erial disease. Reviewed, dictated and finalized at location B. IMPRESSION: 1. Diminished bilateral ankle and right toe brachial indices, consistent with m oderate peripheral arterial disease.
== END 2021-10-10 14:02 | disposition home or self-care (01) ==
PROVIDERS: PCP Family Medicine Adolescent Medicine; Visit Provider Internal Medicine Cardiovascular Disease
DX: I73.9 Peripheral vascular disease, unspecified (principal)
CPT/HCPCS: 93923

== ENCOUNTER 2021-12-04 11:28 | Outpatient (CLI) | payer MEDICARE, SELFPAY ==
[2021-12-04 12:07] LABS: Basophils Absolute Auto 0.1 K/mm3 (0.0-0.1); Basophils Percent Auto 0.6 % (0.2-1.2); Eosinophils Absolute Auto 0.2 K/mm3 (0-0.3); Eosinophils Percent Auto 2.9 % (0-4.4); Hematocrit 46.5 % (42.0-52.0); Immature Granulocyte Absolute 0.02 K/mm3 (0.00-0.031); Immature Granulocyte Percent A 0.3 % (0-0.5); Lymphocytes Absolute Auto 1.57 K/mm3 (0.9-3.2); Lymphocytes Percent Auto 20.1 % (18.3-44.2); Mean Corpuscular HGB Conc 32.3 g/dl (32-36); Mean Corpuscular Hemoglobin 31.2 pg (26-34); Mean Corpuscular Volume 96.7 fl (80-100); Mean Platelet Volume 11.5 fl (7.4-10.4); Monocytes Absolute Auto 0.7 K/mm3 (0.1-0.6); Monocytes Percent Auto 8.8 % (2.6-8.5); Neutrophils Absolute Auto 5.2 K/mm3 (1.3-6.7); Neutrophils Percent Auto 67.3 % (45.5-73.1); Platelet Count Result 153 k/mm3 (150-375); Red Blood Count 4.81 M/mm3 (4.6-6.20); White Blood Count 7.8 K/mm3 (4.5-10.0)
[2021-12-04 12:11] LABS: Blood Urea Nitrogen 9 mg/dL (8-26); Carbon Dioxide 29 mmol/L (22-30); Chloride 102 mmol/L (98-109); Estimated Glomerular Filt Rate > 60; Glucose 108 mg/dL (70-105); Ionized Calcium (POC) 1.22 mmol/L (1.11-1.31); Potassium 4.6 mmol/L (3.5-4.9); Sodium 143 mmol/L (138-146)
[2021-12-04 13:25] LABS: Alanine Aminotransferase 23 U/L (6-50); Albumin Level 3.8 g/dL (3.5-5.1); Alkaline Phosphatase 73 U/L (38-126); Anion Gap 8 mmol/L (8-16); Aspartate Amino Transferase 25 U/L (17-59); Bilirubin,Total 0.4 mg/dL (0.2-1.3); Blood Urea Nitrogen 11 mg/dL (9-20); Calcium 8.7 mg/dL (8.4-10.2); Carbon Dioxide 29 mmol/L (22-30); Chloride 104 mmol/L (98-107); Estimated Glomerular Filt Rate > 60; Glucose 110 mg/dL (65-110); Potassium 4.6 mmol/L (3.4-5.0); Sodium 141 mmol/L (137-145)
[2021-12-04 13:56] LABS: Carcinoembryonic Antigen 0.9 ng/mL (0.0-3.0)
== END 2021-12-04 11:29 | disposition home or self-care (01) ==
LOC: ANHLAB 11:30
PROVIDERS: PCP Family Medicine Adolescent Medicine; Visit Provider Internal Medicine Hematology & Oncology
DX: C18.2 Malignant neoplasm of ascending colon (principal)
CPT/HCPCS: 36415; 80047; 80053; 82378; 85025

== ENCOUNTER 2021-12-22 11:30 | Outpatient (CLI) | payer MEDICARE, SELFPAY ==
[2021-12-22 11:48] LABS: Basophils Absolute Auto 0.1 K/mm3 (0.0-0.1); Basophils Percent Auto 0.7 % (0.2-1.2); Eosinophils Absolute Auto 0.2 K/mm3 (0-0.3); Eosinophils Percent Auto 2.5 % (0-4.4); Hematocrit 46.6 % (42.0-52.0); Hemoglobin 14.8 g/dL (14.0-18.0); Immature Granulocyte Absolute 0.02 K/mm3 (0.00-0.031); Immature Granulocyte Percent A 0.2 % (0-0.5); Lymphocytes Absolute Auto 1.58 K/mm3 (0.9-3.2); Lymphocytes Percent Auto 17.7 % (18.3-44.2); Mean Corpuscular HGB Conc 31.8 g/dl (32-36); Mean Corpuscular Hemoglobin 30.9 pg (26-34); Mean Corpuscular Volume 97.3 fl (80-100); Mean Platelet Volume 11.9 fl (7.4-10.4); Monocytes Absolute Auto 0.6 K/mm3 (0.1-0.6); Monocytes Percent Auto 7.2 % (2.6-8.5); Neutrophils Absolute Auto 6.4 K/mm3 (1.3-6.7); Neutrophils Percent Auto 71.7 % (45.5-73.1); Platelet Count Result 151 k/mm3 (150-375); Red Blood Count 4.79 M/mm3 (4.6-6.20); Red Cell Distribution Width 13.1 % (11.5-14.5); White Blood Count 8.9 K/mm3 (4.5-10.0)
[2021-12-22 12:02] LABS: Alanine Aminotransferase 35 U/L (6-50); Albumin Level 3.8 g/dL (3.5-5.1); Alkaline Phosphatase 66 U/L (38-126); Anion Gap 10 mmol/L (8-16); Aspartate Amino Transferase 34 U/L (17-59); Bilirubin,Total 0.4 mg/dL (0.2-1.3); Blood Urea Nitrogen 10 mg/dL (9-20); Calcium 8.6 mg/dL (8.4-10.2); Carbon Dioxide 31 mmol/L (22-30); Chloride 103 mmol/L (98-107); Estimated Glomerular Filt Rate > 60; Glucose 120 mg/dL (65-110); Potassium 4.4 mmol/L (3.4-5.0); Sodium 144 mmol/L (137-145)
== END 2021-12-22 11:31 | disposition home or self-care (01) ==
PROVIDERS: PCP Family Medicine Adolescent Medicine; Visit Provider Internal Medicine Cardiovascular Disease
DX: Z01.810 Encounter for preprocedural cardiovascular examination (principal); I73.9 Peripheral vascular disease, unspecified; Z79.01 Long term (current) use of anticoagulants
CPT/HCPCS: 36415; 80053; 85025

== ENCOUNTER 2022-02-03 01:05 | Day surgery (SDC) | payer MEDICARE, SELFPAY ==
[2022-01-28 14:27] VITALS: BMI 31.4
[2022-02-03 07:42] VITALS: BP 117/69; PULSE 84; RESP 18; TEMP 35.7; O2SAT 98; BMI 29.6
[2022-02-03] MEDS: LACTATED RINGERS 1,000 ML 150 ML IV CONT (08:04)
--- NOTE | 2022-02-03 08:15 | WPDANESEPPF ---
Anes - Initial Pre Proc Eval Procedure: Operation Date: 02/03/22 09:00 Proposed Procedures p Screening Colonoscopy - Lloyd Carreno MD Date/Time: 02/03/22 08:15 Surgeon: Lloyd Carreno MD Pre Op Diagnosis: hx of colon cancer Patient Data Age: 71 Gender: M Height: 1.8 m Weight: 96.3 kg Last Vital Signs Temp 96.3 F L 02/03/22 07:42 Pulse 84 02/03/22 07:42 Resp 18 02/03/22 07:42 BP 117/69 02/03/22 07:42 Pulse Ox 98 02/03/22 07:42 O2 Del Method Nasal Cannula 02/03/22 07:42 O2 Flow Rate 3 02/03/22 07:42 Allergies Allergy/AdvReac Type Severity Reaction Status Date / Time No Known Allergies Allergy Unknown Verified 02/03/22 07:52 Home Medications Medication Instructions Recorded Confirmed Type rivaroxaban 20 mg tablet (Xarelto) 20 mg PO HS 05/04/19 02/03/22 History rosuvastatin 40 mg tablet 40 mg PO DAILY 05/04/19 02/03/22 History sotalol 80 mg tablet 80 mg PO Q12HR #60 tabs 05/11/19 02/03/22 Rx albuterol sulfate 2.5 mg/3 mL See Rx Instructions .Route 09/29/21 02/03/22 Rx (0.083 %) solution for nebulization .COMPLEX #360 mL glycopyrrolate 9 mcg-formoterol 2 puff inhalation Q12H #10.7 grams 10/23/21 02/03/22 Rx 4.8 mcg HFA aerosol inhaler (Bevespi Aerosphere) albuterol sulfate 90 mcg/actuation See Rx Instructions .Route 01/14/22 02/03/22 Rx aerosol inhaler .COMPLEX #9 grams Patient hx anesthesia problems: none Family hx anesthesia problems: none Results Review: All pre-operative results and documents have been reviewed as part of the pre-operative evaluation. [facility] Past Medical History Medical History Adenomatous colon polyp Adult idiopathic generalized osteoporosis Ankle fracture, left Ankle fracture, right Arthritis Atrial fibrillation Atrial fibrillation with RVR Bladder cancer Surgery plus chemotherapy Cataracts, bilateral Chronic respiratory failure On 2-3 L of oxygen throughout the day Colonic mass COPD (chronic obstructive pulmonary disease) Erosive gastritis External hemorrhoid, bleeding Hx of m[facility]p use of blood thinners Hyperlipidemia Kidney stone Obstructive sleep apnea Intolerant of CPAP machine Pneumonia Rectal bleeding Symptomatic anemia Tobacco abuse UTI (urinary tract infection) Surgical History Surgical History H/O colectomy RIGHT COLECTOMY 01/30/21 H/O cystoscopy Excision of bladder cancer x2 H/O vascular surgery Stent in RLE History of kidney surgery Due to large kidney stone S/P AAA repair S/P cataract surgery Right eye pupil irregular shaped due to surgery Family History Family History Father Family history of obesity Family history of cardiovascular disease Family history of coronary artery disease Sibling Family history of congenital heart disease, Onset Age: 60 Family history of respiratory disorder, Onset Age: 73 Mother Family history of primary malignant neoplasm of liver, Onset Age: 62 Social History Social History (Updated 10/23/21 @ 10:20 by Shabana Valencia MA) Social History: The patient is . He has 2 children. They are both boys and he desires to have both of his sons as the durable power bilingual sales assistant for healthcare. The patient desires to be a full code. 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 The patient is a former smoker. No alcohol marijuana or illicit drugs. Smoking packs per day: 1 Smoking cigarettes per day: 20.0 Years smoked: 50 Smoking pack-years: 50.00 Smoking status: Former smoker Tobacco type: cigarettes Second hand tobacco smoke exposure: Yes Smoking end date: 02/22/19 Additional smoking assessment comments: pt states he will take a couple puffs here or there Alcohol intake: former Sub
--- NOTE | 2022-02-03 08:29 | PM.HPGS ---
History of Present Illness History of Present Illness Consent: Risks, benefits, and alternatives have been discussed and questions answered. Patient agrees to proceed with procedure. Chief complaint: hx of colon cancer Narrative: Pedro Angelo is a 71 year old male with rt hemicolectomy after colon cancer ~ 1 year ago (did not require chemotherapy) Review of Systems Constitutional: Constitutional: Denies headache(s) and Denies weakness Eyes: Eyes: Denies blurry vision ENT: Reports Normal hearing present, Denies headache(s) and Denies neck pain Cardiovascular: Cardiovascular: Denies chest pain and Denies dyspnea Respiratory: Respiratory: Denies dyspnea Gastrointestinal: Gastrointestinal: Reports no additional gastrointestinal complaints Genitourinary: Genitourinary: Denies dysuria Musculoskeletal: Musculoskeletal: Denies neck pain Integumentary/Breasts: Skin/Breast: Denies dry skin Neurologic: Reports Normal hearing present, Denies headache(s) and Denies weakness Psychiatric: Psychiatric: Denies anxiety Endocrine: Endocrine: Denies change in body appearance Hematologic/Lymphatic: Hematologic/Lymphatic: Denies easy bleeding Allergic/Immunologic: Allergic/Immunologic: Denies urticaria PMFSH Past Medical History Medical History (Updated 02/03/22 @ 08:30 by Lloyd Carreno MD) Adenomatous colon polyp Adult idiopathic generalized osteoporosis Ankle fracture, left Ankle fracture, right Arthritis Atrial fibrillation Atrial fibrillation with RVR Bladder cancer Surgery plus chemotherapy Cataracts, bilateral Chronic respiratory failure On 2-3 L of oxygen throughout the day Colon cancer Colonic mass COPD (chronic obstructive pulmonary disease) Erosive gastritis External hemorrhoid, bleeding 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 Hyperlipidemia Kidney stone Obstructive sleep apnea Intolerant of CPAP machine Pneumonia Rectal bleeding Symptomatic anemia Tobacco abuse UTI (urinary tract infection) Surgical History Surgical History H/O colectomy RIGHT COLECTOMY 01/30/21 H/O cystoscopy Excision of bladder cancer x2 H/O vascular surgery Stent in RLE History of kidney surgery Due to large kidney stone S/P AAA repair S/P cataract surgery Right eye pupil irregular shaped due to surgery Family History Family History Father Family history of obesity Family history of cardiovascular disease Family history of coronary artery disease Sibling Family history of congenital heart disease, Onset Age: 60 Family history of respiratory disorder, Onset Age: 73 Mother Family history of primary malignant neoplasm of liver, Onset Age: 62 Social History Social History (Updated 10/23/21 @ 10:20 by Shabana Valencia MA) Social History: The patient is . He has 2 children. They are both boys and he desires to have both of his sons as the durable power tufting machine operator single needle for healthcare. The patient desires to be a full code. 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 The patient is a former smoker. No alcohol marijuana or illicit drugs. Smoking packs per day: 1 Smoking cigarettes per day: 20.0 Years smoked: 50 Smoking pack-years: 50.00 Smoking status: Former smoker Tobacco type: cigarettes Second hand tobacco smoke exposure: Yes Smoking end date: 02/22/19 Additional smoking assessment comments: pt states he will take a couple puffs here or there Alcohol intake: former Substance use: never Substance use type: does not use Living arrangements: with family Gender identity (if verbalized by the patient): Male Sexual Orientation (if Verbalized by the Patient): Straight or Heterosexual Spiritual care concerns: No Meds Home Medications and Allergies Home Medications Medication Ins
[2022-02-03 08:43] VITALS: BP 95/60; PULSE 76; RESP 18; O2SAT 96
[2022-02-03 08:53] VITALS: BP 97/59; PULSE 71; RESP 18; O2SAT 95
[2022-02-03 09:03] VITALS: BP 99/57; PULSE 67; RESP 20; O2SAT 95
== END 2022-02-03 09:11 | disposition home or self-care (01) ==
PROVIDERS: PCP Family Medicine Adolescent Medicine; Visit Provider Internal Medicine Gastroenterology
PROC: 0DJD8ZZ Inspection of Lower Intestinal Tract, Via Natural or Artificial Opening Endoscopic (ICD-10-PCS; CPT 45378; principal; 2022-02-03 09:00)
DX: Z08 Encounter for follow-up examination after completed treatment for malignant neoplasm (principal); K57.30 Diverticulosis of large intestine without perforation or abscess without bleeding; D12.3 Benign neoplasm of transverse colon; Z85.038 Personal history of other malignant neoplasm of large intestine; Z90.49 Acquired absence of other specified parts of digestive tract; Z98.0 Intestinal bypass and anastomosis status; I48.91 Unspecified atrial fibrillation; J96.11 Chronic respiratory failure with hypoxia; G47.33 Obstructive sleep apnea (adult) (pediatric); J44.9 Chronic obstructive pulmonary disease, unspecified; Z79.01 Long term (current) use of anticoagulants; Z79.51 Long term (current) use of inhaled steroids; E78.5 Hyperlipidemia, unspecified; Z85.51 Personal history of malignant neoplasm of bladder; Z92.21 Personal history of antineoplastic chemotherapy; Z87.891 Personal history of nicotine dependence; E66.9 Obesity, unspecified; Z68.29 Body mass index [BMI] 29.0-29.9, adult
CPT/HCPCS: 45385; 88305; J2704; J7120

== ENCOUNTER 2022-04-09 08:15 | Outpatient (CLI) | payer MEDICARE, SELFPAY ==
--- NOTE | ~2022-04-09 | CT_ITS ---
EXAMINATION: CT abdomen pelvis w con INDICATION: Malignant neoplasm of the ascending colon TECHNIQUE: Computed tomographic images of the abdomen and pelvis were obtained after the administrati on of 100 cc of Omnipaque 350 intravenous contrast. The dose-length product (DLP) was 991.11 mGy-cm. Automated exposure control and iterative reconstruction technique were employed. COMPARISON: 07/25/2021 FINDINGS: There are areas of chronic bronchial wall thickening of the lower lobes, left greater than right, consistent with chronic infection. The heart size is normal. Calcified coronary artery atheros clerosis is noted. The liver, pancreas, gallbladder, and adrenal glands are normal. Punctate calcific ations in an otherwise normal spleen likely represent healed granulomatous disease. There is chronic moderate diffuse cortical thinning of the left kidney with multiple peripelvic cysts seen. There is a 9 mm stone in the right renal pelvis with mild urothelial thickening and enhancement of the renal pe lvis. There are two 4 mm stones of the right kidney lower pole. There is a 5.5 cm fusiform infrarenal aneurysm status post aortobiiliac endoluminal stent graft repair. There are changes of right hemicol ectomy. No residual or recurrent mass is identified. No pathologically enlarged abdominal or pelvic l ymph nodes are identified. No free intraperitoneal gas or evidence of bowel obstruction. Colonic dive rticulosis is present without evidence of diverticulitis. There is severe lumbar spondylosis at L5-S1 . A small area of osteonecrosis is again noted in the left femoral head. IMPRESSION: 1. Changes of right hemicolectomy without recurrent or metastatic disease. 2. 9 mm stone in the right renal pelvis causing mild urothelial thickening and enhancement. Urologic evaluation is recommended. Reviewed, dictated and finalized at location L. ERY CLERK
[2022-04-09 08:37] LABS: Estimated Glomerular Filt Rate 59
== END 2022-04-09 08:16 | disposition home or self-care (01) ==
PROVIDERS: PCP Family Medicine Adolescent Medicine; Visit Provider Internal Medicine Hematology & Oncology
DX: C18.2 Malignant neoplasm of ascending colon (principal); N20.0 Calculus of kidney
CPT/HCPCS: 74177; Q9967

== ENCOUNTER 2022-04-16 13:53 | Outpatient (CLI) | payer MEDICARE, SELFPAY ==
[2022-04-16 14:14] LABS: Basophils Absolute Auto 0.1 K/mm3 (0.0-0.1); Basophils Percent Auto 0.8 % (0.2-1.2); Eosinophils Absolute Auto 0.2 K/mm3 (0-0.3); Eosinophils Percent Auto 2.6 % (0-4.4); Hematocrit 43.6 % (42.0-52.0); Immature Granulocyte Absolute 0.04 K/mm3 (0.00-0.031); Immature Granulocyte Percent A 0.5 % (0-0.5); Lymphocytes Absolute Auto 1.62 K/mm3 (0.9-3.2); Lymphocytes Percent Auto 19.4 % (18.3-44.2); Mean Corpuscular HGB Conc 32.1 g/dl (32-36); Mean Corpuscular Hemoglobin 30.4 pg (26-34); Mean Corpuscular Volume 94.6 fl (80-100); Mean Platelet Volume 11.2 fl (7.4-10.4); Monocytes Absolute Auto 0.6 K/mm3 (0.1-0.6); Monocytes Percent Auto 7.4 % (2.6-8.5); Neutrophils Absolute Auto 5.8 K/mm3 (1.3-6.7); Neutrophils Percent Auto 69.3 % (45.5-73.1); Platelet Count Result 156 k/mm3 (150-375); Red Blood Count 4.61 M/mm3 (4.6-6.20); Red Cell Distribution Width 13.2 % (11.5-14.5); White Blood Count 8.3 K/mm3 (4.5-10.0)
[2022-04-16 14:18] LABS: Blood Urea Nitrogen 8 mg/dL (8-26); Carbon Dioxide 31 mmol/L (22-30); Chloride 102 mmol/L (98-109); Estimated Glomerular Filt Rate > 60; Glucose 102 mg/dL (70-105); Ionized Calcium (POC) 1.19 mmol/L (1.11-1.31); Potassium 4.6 mmol/L (3.5-4.9); Sodium 142 mmol/L (138-146)
[2022-04-17 04:23] LABS: Alanine Aminotransferase 32 U/L (6-50); Albumin Level 3.8 g/dL (3.5-5.1); Alkaline Phosphatase 73 U/L (38-126); Anion Gap 1 mmol/L (8-16); Aspartate Amino Transferase 30 U/L (17-59); Bilirubin,Total 0.3 mg/dL (0.2-1.3); Blood Urea Nitrogen 9 mg/dL (9-20); Calcium 8.6 mg/dL (8.4-10.2); Carbon Dioxide 33 mmol/L (22-30); Chloride 107 mmol/L (98-107); Estimated Glomerular Filt Rate > 60; Glucose 100 mg/dL (65-110); Potassium 4.6 mmol/L (3.4-5.0); Sodium 141 mmol/L (137-145)
[2022-04-17 04:48] LABS: Carcinoembryonic Antigen 0.8 ng/mL (0.0-3.0)
== END 2022-04-16 13:54 | disposition home or self-care (01) ==
LOC: ANHLAB 13:54
PROVIDERS: PCP Family Medicine Adolescent Medicine; Visit Provider Internal Medicine Hematology & Oncology
DX: C18.2 Malignant neoplasm of ascending colon (principal)
CPT/HCPCS: 36415; 80047; 80053; 82378; 85025

== ENCOUNTER 2022-05-07 09:04 | Outpatient (CLI) | payer MEDICARE, SELFPAY ==
[2022-05-07 10:03] LABS: INR 1.4; Prothrombin Time 16.5 Seconds (11.1-14.7)
[2022-05-07 10:04] LABS: Partial Thromboplastin Time 32.2 SECONDS (22.3-36.8)
== END 2022-05-07 09:05 | disposition home or self-care (01) ==
LOC: ANHSURGERY 09:11
PROVIDERS: PCP Family Medicine Adolescent Medicine; Visit Provider Urology
DX: Z01.812 Encounter for preprocedural laboratory examination (principal); N20.0 Calculus of kidney
CPT/HCPCS: 36415; 85610; 85730; 87086

== ENCOUNTER 2022-05-15 02:03 | Day surgery (SDC) | payer MEDICARE, SELFPAY ==
[2022-05-01 13:52] VITALS: BMI 28.0
--- NOTE | 2022-05-01 14:12 | PC.NURSE ---
PRE-OP INSTRUCTIONS, PLEASE READ CAREFULLY Report to the Outpatient Waiting Room, entrance under the green pavilion located off [facility], at time _0630_ on date _05/15/22_. Planned Procedure Time: _0830_. Time changes happen often and if your time is changed the preop area will call you the afternoon before. - You and your visitor will be asked to self-screen and do not enter if you have any COVID symptoms. - Only one visitor is requested with a max of two and NO children visitors are allowed at this time. - The patient visitor may be requested to leave or wait in car when not with patient due to distancing restrictions. - A mask is optional within the hospital at this time. Patients may have clear liquids (water, carbonated beverages, clear teas, apple juice) until 3 hours prior to surgery (0530 AM) with a maximum of 20 ounces. - No food from midnight until time of surgery Take the following medications with a SIP of water the morning of surgery: _SOTALOL, BEVESPI INHALER, & ALBUTEROL INHALER IF NEEDED _ DO NOT STOP ANY OF YOUR OTHER PRESCRIPTION MEDICATIONS PRIOR TO SURGERY ?EXCEPT THE FOLLOWING Medications to discontinue _XARELTO PER DR. RAINES'S INSTRUCTIONS_, Date to take last dose Please no make-up, nail paraguayan, hairspray, perfume, deodorant, or body powder the day of surgery. No jewelry (including any body piercings) or valuables the day of surgery, leave them at home. Please take a shower or bath the night before, or the morning of, surgery with an antibacterial soap. Wear comfortable, loose fitting clothing. Children are encouraged to wear pajamas. - Jewelry must be removed prior to entering the operating room. Rings and piercings that are not removed may be cut off. - The hospital will not accept responsibility for valuables. - Please leave all valuables, including medications, at home the day of surgery. If you are going home after surgery, a licensed school bus driver must drive you home. - NO public transportation without another adult if you receive anesthesia. - We recommend that an adult stay with you for 24 hours following discharge. - We also recommend that you do not drive, make important decision, drink alcoholic beverages, or take any drugs that were not prescribed by your health care provider for at least 24 hours after your discharge time. Follow any additional instructions given to you from your surgeon. If you or anyone in your household have experienced Covid symptoms in the past week, please notify your surgeon or the nurse liaison at the phone number below for possible testing. Telephone instructions given to _PATIENT_and asked if any additional questions and then verbalized understanding. Patient advised to call surgeon office or pre surgery nurse liaison [phone] if any additional questions.
--- NOTE | ~2022-05-15 | XR_ITS ---
Supine and upright views of the abdomen Clinical history: Lithotripsy COMPARISON: 09/29/2018 Findings: Bowel gas pattern is nonspecific. No evidence for obstruction or free air. Suspected 5 mm s tone, possibly the region of the right renal pelvis. Aortic stent graft in place. Osseous structures are intact. Impression: Suspected 5 mm stone possibly in the region of the right renal pelvis. Aortic stent graft. Reviewed, dictated and finalized at location . Impression: Suspected 5 mm stone possibly in the region of the right renal pelvis. Aortic stent graft.
--- NOTE | 2022-05-15 06:32 | WPDHPUPDATE1 ---
History and Physical Update Update Date/Time: 05/15/22 06:32 History and Physical has been reviewed, including an updated exam of the patient. There are NO changes in the patient's condition. Risks, benefits, and alternatives have been discussed and questions answered. Patient agrees to proceed with procedure.
[2022-05-15 06:45] VITALS: BP 122/61; PULSE 84; RESP 16; TEMP 36.4; O2SAT 98
[2022-05-15] MEDS: LACTATED RINGERS 1,000 ML 30 ML IV CONT (07:00)
[2022-05-15 07:44] LABS: INR 1.1; Prothrombin Time 14.1 Seconds (11.1-14.7)
[2022-05-15 07:45] LABS: Partial Thromboplastin Time 25.8 SECONDS (22.3-36.8)
--- NOTE | 2022-05-15 08:11 | WPDANESEPPF ---
Anes - Initial Pre Proc Eval Procedure: Operation Date: 05/15/22 08:30 Proposed Procedures p Right Extracorporeal Shock Wave Lithotripsy, - Dharmesh James MD s Flexible Cystoscopy - Dharmesh James MD Date/Time: 05/15/22 08:11 Surgeon: Dharmesh James MD Pre Op Diagnosis: right kidney stone Patient Data Age: 71 Gender: M Height: 1.83 m Weight: 93.63 kg Allergies Allergy/AdvReac Type Severity Reaction Status Date / Time No Known Allergies Allergy Unknown Verified 02/03/22 07:52 Home Medications Medication Instructions Recorded Confirmed Type rivaroxaban 20 mg tablet (Xarelto) 20 mg PO HS 05/04/19 05/01/22 History rosuvastatin 40 mg tablet 40 mg PO DAILY 05/04/19 05/01/22 History sotalol 80 mg tablet 80 mg PO Q12HR #60 tabs 05/11/19 05/01/22 Rx glycopyrrolate 9 mcg-formoterol 2 puff inhalation Q12H #10.7 grams 10/23/21 05/01/22 Rx 4.8 mcg HFA aerosol inhaler (Bevespi Aerosphere) albuterol sulfate 90 mcg/actuation See Rx Instructions .Route 04/21/22 05/01/22 Rx aerosol inhaler .COMPLEX #8.5 grams Laboratory Tests 05/15/22 07:09 PT 14.1 Seconds Seconds (11.1-14.7) INR 1.1 APTT 25.8 SECONDS SECONDS (22.3-36.8) Patient hx anesthesia problems: none Family hx anesthesia problems: none Results Review: All pre-operative results and documents have been reviewed as part of the pre-operative evaluation. [facility] Past Medical History Medical History Adenomatous colon polyp Adult idiopathic generalized osteoporosis Ankle fracture, left Ankle fracture, right Arthritis Atrial fibrillation Atrial fibrillation with RVR Bladder cancer Surgery plus chemotherapy Cataracts, bilateral Chronic respiratory failure On 2-3 L of oxygen throughout the day Colon cancer Colonic mass COPD (chronic obstructive pulmonary disease) Erosive gastritis External hemorrhoid, bleeding Hx of retirement use of blood thinners Hyperlipidemia Kidney stone Obstructive sleep apnea Intolerant of CPAP machine Pneumonia Rectal bleeding Symptomatic anemia Tobacco abuse UTI (urinary tract infection) Surgical History Surgical History H/O colectomy RIGHT COLECTOMY 01/30/21 H/O cystoscopy Excision of bladder cancer x2 H/O vascular surgery Stent in RLE History of kidney surgery Due to large kidney stone S/P AAA repair S/P cataract surgery Right eye pupil irregular shaped due to surgery Family History Family History Father Family history of obesity Family history of cardiovascular disease Family history of coronary artery disease Sibling Family history of congenital heart disease, Onset Age: 60 Family history of respiratory disorder, Onset Age: 73 Mother Family history of primary malignant neoplasm of liver, Onset Age: 62 Social History Social History Social History: The patient is . He has 2 children. They are both boys and he desires to have both of his sons as the durable power tax attorney for healthcare. The patient desires to be a full code. 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 The patient is a former smoker. No alcohol marijuana or illicit drugs. Smoking packs per day: 1 Smoking cigarettes per day: 20.0 Years smoked: 50 Smoking pack-years: 50.00 Smoking status: Former smoker Tobacco type: cigarettes Second hand tobacco smoke exposure: No Smoking end date: 02/22/18 Additional smoking assessment comments: pt states he will take a couple puffs here or there Alcohol intake: never Substance use: never Substance use type: does not use Living arrangements: alone Gender identity (if verbalized by the patient): Male Sexual Orien
[2022-05-15] MEDS: ceFAZolin 2 GM/D5W 50 ML 2 GM/50 ML BAG IVPB (08:22)
[2022-05-15] MEDS: LIDOCAINE HCL 2% GEL UROJET 10 ML PKG MUCOUS MEM (08:25)
--- NOTE | 2022-05-15 08:53 | W.PM.PROC2 ---
Procedure Note - Detailed Date of Procedure 05/15/22 Pre-op Diagnosis Right kidney stone Post-op Diagnosis Other (1. Right kidney stone 2. Bladder neck contracture 3. No recurrent bladder tumor) Procedure Performed 1. Cystoscopy with urethral dilatation 2. Right ESWL Surgeon Dharmesh James MD Anesthesia General Description of Procedure brought to the operative suite worries prepped draped in routine sterile fashion while supine position. 2% xylocaine jelly was introduced per urethra and general anesthesia was administered per the anesthesia department. I attempted cystoscopy with a 16 F flexible cystoscope is a very unusual prostatic urethra and a very tight bladder neck contracture. After of fairly extensive attempt I was able to identify the opening the bladder situated very anteriorly in the midline. A placed a 0.035 in glidewire into the bladder under fluoroscopy. Bladder neck was dilated from 8 F to 22 F with Amplatz dilators. Cystoscopy showed trabeculation but without recurrent neoplasm. There was no mucosal hyperemia of significance. The focal point of the Lithotripter was then placed it is 8 mm right renal calculus. Total of 2500 shocks were delivered at power setting of 4. There appeared to be good fragmentation. Drains No Packing No Pathology None sent Complications No immediate complications Condition Stable Disposition PACU
[2022-05-15 09:20] VITALS: BP 120/59; PULSE 65; RESP 18; TEMP 36.5; O2SAT 100
[2022-05-15 09:35] VITALS: BP 122/63; PULSE 60; RESP 12; O2SAT 100
[2022-05-15 09:45] VITALS: BP 123/68; PULSE 58; RESP 12; O2SAT 100
[2022-05-15 10:00] VITALS: BP 116/65; PULSE 68; RESP 16
[2022-05-15 10:30] VITALS: BP 127/99; PULSE 62; RESP 16
== END 2022-05-15 10:39 | disposition home or self-care (01) ==
PROVIDERS: PCP Family Medicine Adolescent Medicine; Visit Provider Urology
PROC: (CPT 50590; principal; 2022-05-15 08:30)
PROC: 0TJB8ZZ Inspection of Bladder, Via Natural or Artificial Opening Endoscopic (ICD-10-PCS; CPT 52000; 2022-05-15 08:30)
DX: N20.0 Calculus of kidney (principal); N32.0 Bladder-neck obstruction; Z85.51 Personal history of malignant neoplasm of bladder; I48.91 Unspecified atrial fibrillation; J96.10 Chronic respiratory failure, unspecified whether with hypoxia or hypercapnia; Z99.81 Dependence on supplemental oxygen; J44.9 Chronic obstructive pulmonary disease, unspecified; E78.5 Hyperlipidemia, unspecified; G47.33 Obstructive sleep apnea (adult) (pediatric); M81.8 Other osteoporosis without current pathological fracture; Z92.21 Personal history of antineoplastic chemotherapy; Z90.49 Acquired absence of other specified parts of digestive tract; Z85.038 Personal history of other malignant neoplasm of large intestine; Z87.891 Personal history of nicotine dependence; Z79.01 Long term (current) use of anticoagulants; Z79.51 Long term (current) use of inhaled steroids
CPT/HCPCS: 50590; 52000; 36415; 74018; 85610; 85730; 87086; C1726; C1769; J0690; J1100; J2405; J2704; J3010; J7030; J7120

== ENCOUNTER 2022-05-20 13:26 | Outpatient (CLI) | payer MEDICARE, SELFPAY ==
--- NOTE | ~2022-05-20 | CT_ITS ---
CT Scan of the Chest without Contrast: Clinical Indication: Lung cancer screening, smoking history Technique: Contiguous sections were acquired throughout the chest without intravenous contrast. Dose reduction technique was used on this scan by utilizing automated exposure control and iterative recon struction technique. The dose-length product (DLP) was 242.72 mGy-cm. COMPARISON: 05/19/2021 and 08/14/2019 Findings: There is no evidence of any significant mediastinal, hilar or axillary lymphadenopathy. Coronary sky ry calcifications are present small pericardial effusion present.. There is no evidence of pleural or pericardial effusion. The lungs are clear. No pulmonary nodules or infiltrates are noted. Mild emphysema present. Images through the upper abdomen reveal severe left hydronephrosis, unchanged. There is moderate righ t hydronephrosis, which is worsened from prior exam. Small nonobstructing right renal stone noted. Ao rtic stent graft is partially imaged.. Impression: Lung-RADS 1: Negative. 12 month follow-up screening CT advised. Moderate right hydronephrosis, worsened from prior exam. Consider additional workup for worsening hyd ronephrosis as indicated. Mild emphysema. Stable probable chronic, severe left hydronephrosis and left renal atrophy. Small nonobstructing right renal stone and aortic stent graft. Reviewed, dictated and finalized at location . Impression: Lung-RADS 1: Negative. 12 month follow-up screening CT advised. Moderate right hydronephrosis, worsened from prior exam. Consider additional wo rkup for worsening hydronephrosis as indicated. Mild emphysema. Stable probable chronic, severe left hydronephrosis and left renal atrophy. Small nonobstructing right renal stone and aortic stent graft.
== END 2022-05-20 13:27 | disposition home or self-care (01) ==
LOC: ANHIMG 13:28
PROVIDERS: PCP Family Medicine Adolescent Medicine; Visit Provider Nurse Practitioner Family
DX: Z12.2 Encounter for screening for malignant neoplasm of respiratory organs (principal); Z87.891 Personal history of nicotine dependence; N13.30 Unspecified hydronephrosis; J43.9 Emphysema, unspecified; N26.1 Atrophy of kidney (terminal); N20.0 Calculus of kidney
CPT/HCPCS: 71271

== ENCOUNTER 2022-08-05 16:04 | Outpatient (CLI) | payer MEDICARE, SELFPAY ==
[2022-08-06 11:14] LABS: Alanine Aminotransferase 24 U/L (6-50); Albumin Level 3.6 g/dL (3.5-5.1); Alkaline Phosphatase 65 U/L (38-126); Anion Gap 2 mmol/L (8-16); Aspartate Amino Transferase 29 U/L (17-59); Bilirubin,Total 0.4 mg/dL (0.2-1.3); Blood Urea Nitrogen 10 mg/dL (9-20); Calcium 8.8 mg/dL (8.4-10.2); Carbon Dioxide 34 mmol/L (22-30); Chloride 106 mmol/L (98-107); Estimated Glomerular Filt Rate > 60; Glucose 98 mg/dL (65-110); Potassium 4.3 mmol/L (3.4-5.0); Sodium 142 mmol/L (137-145)
[2022-08-06 11:16] LABS: Basophils Absolute Auto 0.1 K/mm3 (0.0-0.1); Basophils Percent Auto 0.8 % (0.2-1.2); Eosinophils Absolute Auto 0.2 K/mm3 (0-0.3); Eosinophils Percent Auto 2.7 % (0-4.4); Hematocrit 41.4 % (42.0-52.0); Immature Granulocyte Absolute 0.02 K/mm3 (0.00-0.031); Immature Granulocyte Percent A 0.3 % (0-0.5); Lymphocytes Absolute Auto 1.53 K/mm3 (0.9-3.2); Lymphocytes Percent Auto 19.6 % (18.3-44.2); Mean Corpuscular HGB Conc 31.4 g/dl (32-36); Mean Corpuscular Hemoglobin 29.8 pg (26-34); Mean Platelet Volume 12.7 fl (7.4-10.4); Monocytes Absolute Auto 0.6 K/mm3 (0.1-0.6); Monocytes Percent Auto 7.6 % (2.6-8.5); Neutrophils Absolute Auto 5.4 K/mm3 (1.3-6.7); Platelet Count Result 159 k/mm3 (150-375); Red Blood Count 4.36 M/mm3 (4.6-6.20); White Blood Count 7.8 K/mm3 (4.5-10.0)
== END 2022-08-05 16:05 | disposition home or self-care (01) ==
PROVIDERS: PCP Family Medicine Adolescent Medicine; Visit Provider Internal Medicine Cardiovascular Disease
DX: I48.0 Paroxysmal atrial fibrillation (principal); Z79.899 Other long term (current) drug therapy; Z51.81 Encounter for therapeutic drug level monitoring
CPT/HCPCS: 36415; 80053; 85025

== ENCOUNTER 2022-08-13 14:00 | Outpatient (CLI) | payer MEDICARE, SELFPAY ==
[2022-08-13 14:13] LABS: Basophils Absolute Auto 0.1 K/mm3 (0.0-0.1); Basophils Percent Auto 0.7 % (0.2-1.2); Eosinophils Absolute Auto 0.2 K/mm3 (0-0.3); Eosinophils Percent Auto 2.7 % (0-4.4); Hematocrit 41.1 % (42.0-52.0); Hemoglobin 13.2 g/dL (14.0-18.0); Immature Granulocyte Absolute 0.02 K/mm3 (0.00-0.031); Immature Granulocyte Percent A 0.2 % (0-0.5); Lymphocytes Absolute Auto 1.61 K/mm3 (0.9-3.2); Lymphocytes Percent Auto 19.2 % (18.3-44.2); Mean Corpuscular HGB Conc 32.1 g/dl (32-36); Mean Corpuscular Hemoglobin 29.9 pg (26-34); Mean Platelet Volume 11.7 fl (7.4-10.4); Monocytes Absolute Auto 0.6 K/mm3 (0.1-0.6); Monocytes Percent Auto 7.1 % (2.6-8.5); Neutrophils Absolute Auto 5.9 K/mm3 (1.3-6.7); Neutrophils Percent Auto 70.1 % (45.5-73.1); Platelet Count Result 167 k/mm3 (150-375); Red Blood Count 4.42 M/mm3 (4.6-6.20); Red Cell Distribution Width 13.8 % (11.5-14.5); White Blood Count 8.4 K/mm3 (4.5-10.0)
[2022-08-13 14:17] LABS: Blood Urea Nitrogen 9 mg/dL (8-26); Carbon Dioxide 25 mmol/L (22-30); Chloride 107 mmol/L (98-109); Estimated Glomerular Filt Rate > 60; Glucose 101 mg/dL (70-105); Potassium 4.3 mmol/L (3.5-4.9); Sodium 142 mmol/L (138-146)
[2022-08-13 16:23] LABS: Alanine Aminotransferase 26 U/L (6-50); Albumin Level 3.7 g/dL (3.5-5.1); Alkaline Phosphatase 71 U/L (38-126); Anion Gap 1 mmol/L (8-16); Aspartate Amino Transferase 34 U/L (17-59); Bilirubin,Total 0.4 mg/dL (0.2-1.3); Blood Urea Nitrogen 10 mg/dL (9-20); Calcium 8.6 mg/dL (8.4-10.2); Carbon Dioxide 31 mmol/L (22-30); Chloride 108 mmol/L (98-107); Estimated Glomerular Filt Rate > 60; Glucose 100 mg/dL (65-110); Potassium 4.4 mmol/L (3.4-5.0); Sodium 140 mmol/L (137-145)
[2022-08-13 16:54] LABS: Carcinoembryonic Antigen 1.2 ng/mL (0.0-3.0)
== END 2022-08-13 14:01 | disposition home or self-care (01) ==
LOC: ANHLAB 14:02
PROVIDERS: PCP Family Medicine Adolescent Medicine; Visit Provider Internal Medicine Hematology & Oncology
DX: C18.2 Malignant neoplasm of ascending colon (principal)
CPT/HCPCS: 36415; 80047; 80053; 82378; 85025

== ENCOUNTER 2022-10-19 12:30 | Observation (INO) | payer MEDICARE, SELFPAY ==
[2022-10-19] VITALS (9 sets, daily range): BP systolic 92–130; BP diastolic 58–78; PULSE 63–89; RESP 12–20; TEMP 36.4; O2SAT 93–100; BMI 24.8
--- NOTE | ~2022-10-19 | US_ITS ---
EXAMINATION: US right upper quadrant DATE: 10/20/2022 19:09 INDICATION: pancretitis TECHNIQUE: Multiple grayscale and Doppler ultrasound images of the right upper quadrant were obtained . COMPARISON: None available. FINDINGS: Limited visualization of the pancreas due to overlying bowel. Bowel, likely stomach overlyi ng the pancreas and corresponding to a palpable lump. Echogenic liver parenchyma No surface nodularit y. Normal hepatopetal flow in the main portal vein. The gallbladder is normal size with no abnormal w all thickening. Multiple fixed echogenic foci along the gallbladder wall. The common bile duct measur es 6 mm. There was no sonographic Bryant sign. Aorta not visualized. There is limited portions of the inferior vena cava are patent. IMPRESSION: The pancreas is obscured. Hepatic steatosis. Fixed echogenic foci along the gallbladder wall may repr esent adherent stones/sludge or small polyps. Palpable gastric body/antrum may be related to inflamma tory change from adjacent pancreatitis. Consider referral for endoscopy to exclude a gastric mass. Reviewed, dictated and finalized at location K. IMPRESSION: The pancreas is obscured. Hepatic steatosis. Fixed echogenic foci along the gal lbladder wall may represent adherent stones/sludge or small polyps. Palpable ga stric body/antrum may be related to inflammatory change from adjacent pancreati tis. Consider referral for endoscopy to exclude a gastric mass.
--- NOTE | ~2022-10-19 | CT_ITS ---
EXAMINATION: CT abdomen pelvis w con DATE: 10/19/2022 15:13 INDICATION: Right upper quadrant and epigastric abdominal pain, tenderness. Vomiting for one week. TECHNIQUE: Computed tomography (CT) of the abdomen and pelvis was performed with 100 CC Omnipaque 350 intravenous contrast. Automated exposure control and iterative reconstruction technique were employe d. Exam dose: 597.67 mGy-cm total exam DLP. COMPARISON: 05/11/[address] abdomen pelvis FINDINGS: Mild dependent left basilar lower lobe atelectasis. The lung bases are otherwise clear of i nfiltrate or consolidation. Trace pericardial fluid. Borderline heart size. Coronary artery calcifications. Distal esophageal wall thickening, nonspecific, possibly due to esophagitis. No hepatic, splenic, pancreatic, adrenal or suspicious renal space occupying mass lesion is detected. Several up to 8.5 mm right renal cysts are noted. Probable right nephrolithiasis, mass by the intravenous contrast material. No ureteral calculus or ur inary tract obstruction is evident. The urinary bladder and prostate gland are unremarkable other rosaura n mild prostate enlargement and minimal calcification. There is mild peripancreatic stranding and mild fluid along the anterior pararenal fascia. There is severe atrophy/cortical thinning of the left kidney. Multiple left parapelvic renal cysts ve rsus dilated calyces; no left renal pelvic dilatation or left ureteral calculus.. Diverticulosis of the colon; no CT evidence of diverticulitis. Endovascular aortobiiliac stent for up to approximately 5.3 cm infrarenal abdominal aortic aneurysm. No intraperitoneal or retroperitoneal or pelvic mass lesion or adenopathy or ascites. Small bilateral fat-containing inguinal hernias. Degenerative changes of the lower thoracic and lumbar spine including moderately prominent degenerati ve disc disease at L4-5 and severe degenerative disc disease at L5-S1. No suspicious osteolytic or osteoblastic lesions are noted. IMPRESSION: Mild peripancreatic fat stranding and fluid collection suggesting acute uncomplicated pa ncreatitis Reviewed, dictated and finalized at Location A. Reviewed, dictated and finalized at location B. IMPRESSION: Mild peripancreatic fat stranding and fluid collection suggesting acute uncomplicated pancreatitis
--- NOTE | 2022-10-19 12:38 | ECG_ITS ---
Measurements Intervals [place] Rate: 85 P: 56 VT: 151 QRS: -16 QRSD: 85 T: 38 QT: 355 QTc: 424 Interpretive Statements SINUS RHYTHM LOW QRS VOLTAGE CANNOT RULE OUT PREVIOUS INFERIOR TX ABNORMAL ECG COMPARED TO ECG 07/04/2021 11:16:21 NO SIGNIFICANT CHANGES Electronically Signed On 10-20-2022 11:50:18 CDT by Madhu Perry M.D.
[2022-10-19 13:37] LABS: Basophils Absolute Auto 0.1 K/mm3 (0.0-0.1); Basophils Percent Auto 0.5 % (0.2-1.2); Eosinophils Absolute Auto 0.2 K/mm3 (0-0.3); Eosinophils Percent Auto 2.4 % (0-4.4); Hematocrit 37.2 % (42.0-52.0); Hemoglobin 11.9 g/dL (14.0-18.0); Immature Granulocyte Absolute 0.03 K/mm3 (0.00-0.031); Immature Granulocyte Percent A 0.3 % (0-0.5); Lymphocytes Absolute Auto 1.18 K/mm3 (0.9-3.2); Lymphocytes Percent Auto 12.3 % (18.3-44.2); Mean Corpuscular Hemoglobin 29.9 pg (26-34); Mean Corpuscular Volume 93.5 fl (80-100); Mean Platelet Volume 12.4 fl (7.4-10.4); Monocytes Absolute Auto 0.6 K/mm3 (0.1-0.6); Monocytes Percent Auto 6.4 % (2.6-8.5); Neutrophils Absolute Auto 7.5 K/mm3 (1.3-6.7); Neutrophils Percent Auto 78.1 % (45.5-73.1); Platelet Count Result 164 k/mm3 (150-375); Red Blood Count 3.98 M/mm3 (4.6-6.20); Red Cell Distribution Width 13.8 % (11.5-14.5); White Blood Count 9.6 K/mm3 (4.5-10.0)
--- NOTE | 2022-10-19 13:41 | ED.GENADULT ---
HPI - General Adult General Chief complaint: Unspecified Stated complaint: shortness of breath Time Seen by Provider: 10/19/22 12:48 History of Present Illness HPI narrative: Patient is a 72-year-old male with a history of colon cancer status post hemicolectomy, COPD with chronic hypoxic respiratory failure on 3 L nasal cannula, A-fib on Xarelto, hyperlipidemia, bladder cancer presenting with failure to thrive. Patient states that for the last several months he has been having difficulty swallowing solids and not liquids. States that he is able to get a small amount of liquids down but everything else comes back up. He saw his PCP about a week ago who advised follow-up with GI for endoscopy. Unfortunately, he is unable to get in for endoscopy for some time. States that he has lost about 30 pounds in the last several months due to his problems with eating. He also reports upper abdominal pain. States that he feels short of breath with exertion but this is baseline for him. No chest pain, fevers, cough, diarrhea, dysuria, leg swelling. Related Data Home Medications Medication Instructions Recorded Confirmed rivaroxaban 20 mg tablet (Xarelto) 20 mg PO HS 05/04/19 10/19/22 rosuvastatin 40 mg tablet 40 mg PO DAILY 05/04/19 10/19/22 sotalol 80 mg tablet 40 mg PO DAILY 07/23/22 10/19/22 Allergies Allergy/AdvReac Type Severity Reaction Status Date / Time No Known Allergies Allergy Unknown Verified 10/21/22 10:31 Review of Systems Review of Systems: All systems reviewed & are unremarkable except as noted in HPI and below PMFSH Past Medical History Medical History Adenomatous colon polyp (06/2020) Adult idiopathic generalized osteoporosis Ankle fracture, left Ankle fracture, right Arthritis Atrial fibrillation with RVR Bladder cancer (1988) Surgery plus chemotherapy Cataracts, bilateral Colon cancer (12/2020) COPD (chronic obstructive pulmonary disease) Erosive gastritis External hemorrhoid, bleeding Hyperlipidemia Kidney stone Obstructive sleep apnea Intolerant of CPAP machine Pneumonia Pseudomonas respiratory infection Rectal bleeding Symptomatic anemia Tobacco abuse UTI (urinary tract infection) Surgical History Surgical History H/O colectomy (2020) RIGHT COLECTOMY 01/30/21 H/O cystoscopy Excision of bladder cancer x2 H/O vascular surgery (2016) Stent in right superficial femoral artery History of AAA (abdominal aortic aneurysm) repair (10/2018) Endovascular repair History of kidney surgery Due to large kidney stone History of right cataract surgery (1995) Family History Family History Father Family history of obesity Family history of cardiovascular disease Family history of coronary artery disease Sibling Family history of congenital heart disease, Onset Age: 60 Family history of respiratory disorder, Onset Age: 73 Mother Family history of primary malignant neoplasm of liver, Onset Age: 62 Social History Social History Social History: The patient is . He has 2 children. They are both boys and he desires to have both of his sons as the durable power traffic law attorney for healthcare. The patient desires to be a full code. 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 The patient is a former smoker. No alcohol marijuana or illicit drugs. Smoking packs per day: 1 Smoking cigarettes per day: 20.0 Years smoked: 50 Smoking pack-years: 50.00 Smoking status: Former smoker Second hand tobacco smoke exposure: No Alcohol intake: never Substance use: never Substance use type: does not use Lack of Transportation: No Lack of Food: Never True Current Housing: I Have Housing Concerned A
[2022-10-19 13:48] LABS: Alanine Aminotransferase 28 U/L (6-50); Albumin Level 3.3 g/dL (3.5-5.1); Alkaline Phosphatase 72 U/L (38-126); Anion Gap 8 mmol/L (8-16); Aspartate Amino Transferase 39 U/L (17-59); Bilirubin,Total 0.4 mg/dL (0.2-1.3); Blood Urea Nitrogen 16 mg/dL (9-20); Calcium 8.9 mg/dL (8.4-10.2); Carbon Dioxide 27 mmol/L (22-30); Chloride 103 mmol/L (98-107); Estimated CRCL calculation 61 ml/min; Estimated Glomerular Filt Rate > 60; Glucose 108 mg/dL (65-110); Potassium 4.2 mmol/L (3.4-5.0); Sodium 138 mmol/L (137-145)
[2022-10-19 14:23] LABS: Lipase 138 U/L (23-300)
[2022-10-19] MEDS: SODIUM CHLORIDE 0.9% IV 1,000 ML 999 ML IV CONT (14:40)
[2022-10-19] MEDS: PANTOPRAZOLE SODIUM IV 40 MG VIAL IV PUSH (14:40)
[2022-10-19 14:55] LABS: Influenza A QL RT-PCR Negative (Negative); Influenza B QL RT-PCR Negative (Negative); SARS-CoV-2 RNA PCR Negative (Negative)
[2022-10-19 15:43] LABS: Appearance Urine Clear (Clear); Bacteria Urine None Seen /hpf; Bilirubin Urine Negative (Negative); Blood Urine Negative (Negative); Calcium Oxalate Crystals Urine Present /hpf; Color Urine Yellow (Yellow); Glucose Urine UA Negative (Negative); Hyaline Casts Urine Present /lpf; Ketones Urine Trace mg/dL (Negative); Leukocyte Esterase Ur Negative LEU/UL (Negative); Nitrate Urine Negative (Negative); Protein Urine 1+ mg/dL (Negative); Squamous Epithelial Cell Urine Occasional /hpf (Few); WBC Urine 21-50 /hpf
[2022-10-19 15:44] LABS: Specific Grav Ur 1.077 (1.001-1.035)
[2022-10-19 15:45] LABS: Add Urine Microscopic? YES
--- NOTE | 2022-10-19 16:22 | PM.IMHP ---
H&P: HPI History of Present Illness Date/Time: 10/19/22 16:22 COUNTS INCLUDE 234 BEDS AT THE [facility] Past Medical History Medical History Adenomatous colon polyp (06/2020) Adult idiopathic generalized osteoporosis Ankle fracture, left Ankle fracture, right Arthritis Atrial fibrillation with RVR Bladder cancer (1988) Surgery plus chemotherapy Cataracts, bilateral Colon cancer (12/2020) COPD (chronic obstructive pulmonary disease) Erosive gastritis External hemorrhoid, bleeding Hyperlipidemia Kidney stone Obstructive sleep apnea Intolerant of CPAP machine Pneumonia Pseudomonas respiratory infection Rectal bleeding Symptomatic anemia Tobacco abuse UTI (urinary tract infection) Surgical History Surgical History H/O colectomy (2020) RIGHT COLECTOMY 01/30/21 H/O cystoscopy Excision of bladder cancer x2 H/O vascular surgery (2015) Stent in right superficial femoral artery History of AAA (abdominal aortic aneurysm) repair (10/2018) Endovascular repair History of kidney surgery Due to large kidney stone History of right cataract surgery (1995) Family History Family History Father Family history of obesity Family history of cardiovascular disease Family history of coronary artery disease Sibling Family history of congenital heart disease, Onset Age: 60 Family history of respiratory disorder, Onset Age: 73 Mother Family history of primary malignant neoplasm of liver, Onset Age: 62 Social History Social History Social History: The patient is . He has 2 children. They are both boys and he desires to have both of his sons as the durable power staff attorney for healthcare. The patient desires to be a full code. 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 The patient is a former smoker. No alcohol marijuana or illicit drugs. Smoking packs per day: 1 Smoking cigarettes per day: 20.0 Years smoked: 50 Smoking pack-years: 50.00 Smoking status: Former smoker Tobacco type: cigarettes Second hand tobacco smoke exposure: No Smoking end date: 02/22/18 Additional smoking assessment comments: pt states he will take a couple puffs here or there Alcohol intake: never Substance use: never Substance use type: does not use Living arrangements: alone Gender identity (if verbalized by the patient): Male Sexual Orientation (if Verbalized by the Patient): Straight or Heterosexual Spiritual care concerns: No Meds Home Medications and Allergies Home Medications Medication Instructions Recorded Confirmed Type rivaroxaban 20 mg tablet (Xarelto) 20 mg PO HS 05/04/19 07/23/22 History rosuvastatin 40 mg tablet 40 mg PO DAILY 05/04/19 07/23/22 History albuterol sulfate 90 mcg/actuation See Rx Instructions .Route 04/21/22 07/23/22 Rx aerosol inhaler .COMPLEX #8.5 grams sotalol 80 mg tablet 40 mg PO DAILY 07/23/22 07/23/22 History glycopyrrolate 9 mcg-formoterol See Rx Instructions .Route 08/10/22 Rx 4.8 mcg HFA aerosol inhaler .COMPLEX #11 grams (Bevespi Aerosphere) Allergies Allergy/AdvReac Type Severity Reaction Status Date / Time No Known Allergies Allergy Unknown Verified 10/19/22 14:00 Vital Signs Vital Signs - 24 hr 10/19/22 12:46 10/19/22 14:48 10/19/22 14:48 Temperature 36.4 C Pulse Rate 89 71 73 Respiratory Rate 18 20 Blood Pressure 92/60 L 125/71 Pulse Oximetry 100 100 Oxygen Delivery Nasal Cannula Oxygen Flow Rate 3 10/19/22 13:01 10/19/22 15:30 Temperature Pulse Rate 80 68 Respiratory Rate 18 14 Blood Pressure 121/70 129/78 Pulse Oximetry 100 100 Oxygen Delivery Oxygen Flow Rate H&P: Results Labs Labs: Short CBC 10/19/22 Range/Units 13:33 WBC
[2022-10-19] MEDS: cefTRIAXone 2 GM/NS 100 ML 2 GM/100 ML BAG IVPB (16:24)
[2022-10-19] MEDS: SODIUM CHLORIDE 0.9% IV 1,000 ML 150 ML IV CONT (17:20)
--- NOTE | 2022-10-19 18:33 | ADMGEN ---
This patient, Pedro Angelo, was admitted to Medical Room 340-01. Patient/family oriented to hospital policies and general routines including ID bracelet, bed and alarms, visiting hours, pain management, procedures, bathroom and other care routines, personal items, smoking policy, room service/diet, and visiting hours. Information on how to activate the Rapid Response Team has been discussed. Patient/Family are encouraged to report perceived risks to care and to ask questions if they do not understand what they are told or what they should do.
--- NOTE | 2022-10-19 21:07 | PM.IMHP ---
H&P: HPI History of Present Illness Date/Time: 10/19/22 21:07 Chief Complaint: dysphagia Narrative: 72-year-old male with past medical history significant for COPD,/emphysema, tobacco dependence, colon CA, obstructive sleep apnea. Patient presents to the emergency room due to dysphagia which is up to both solids and liquids, regurgitation, denies odynophagia, denies hematemesis denies coffee-ground emesis denies melena denies bright red blood per rectum has had weight loss of roughly unintentional [address] of abdomen and pelvis was significant for uncomplicated pancreatitis, urinalysis had numerous WBCs present. patient has been admitted for further evaluation management and treatment. EXAMINATION: CT abdomen pelvis w con DATE: 10/19/2022 15:13 INDICATION: Right upper quadrant and epigastric abdominal pain, tenderness. Vomiting for one week. TECHNIQUE: Computed tomography (CT) of the abdomen and pelvis was performed with 100 CC Omnipaque 350 intravenous contrast. Automated exposure control and iterative reconstruction technique were employed. Exam dose:? 597.67 mGy-cm total exam DLP.? COMPARISON: 05/11/[address] abdomen pelvis FINDINGS: Mild dependent left basilar lower lobe atelectasis. The lung bases are otherwise clear of infiltrate or consolidation. Trace pericardial fluid. Borderline heart size. Coronary artery calcifications. Distal esophageal wall thickening, nonspecific, possibly due to esophagitis. No hepatic, splenic, pancreatic, adrenal or suspicious renal space occupying mass lesion is detected.? Several up to 8.5 mm right renal cysts are noted. Probable right nephrolithiasis, mass by the intravenous contrast material. No ureteral calculus or urinary tract obstruction is evident. The urinary bladder and prostate gland are unremarkable other than mild prostate enlargement and minimal calcification. There is mild peripancreatic stranding and mild fluid along the anterior pararenal fascia. There is severe atrophy/cortical thinning of the left kidney. Multiple left parapelvic renal cysts versus dilated calyces; no left renal pelvic dilatation or left ureteral calculus.. Diverticulosis of the colon; no CT evidence of diverticulitis. Endovascular aortobiiliac stent for up to approximately 5.3 cm infrarenal abdominal aortic aneurysm. No intraperitoneal or retroperitoneal or pelvic mass lesion or adenopathy or ascites. Small bilateral fat-containing inguinal hernias. Degenerative changes of the lower thoracic and lumbar spine including moderately prominent degenerative disc disease at L4-5 and severe degenerative disc disease at L5-S1. No suspicious osteolytic or osteoblastic lesions are noted. IMPRESSION:? Mild peripancreatic fat stranding and fluid collection suggesting acute uncomplicated pancreatitis Review of Systems Review of Systems: dysphagia [facility] Past Medical History Medical History Adenomatous colon polyp (06/2020) Adult idiopathic generalized osteoporosis Ankle fracture, left Ankle fracture, right Arthritis Atrial fibrillation with RVR Bladder cancer (1988) Surgery plus chemotherapy Cataracts, bilateral Colon cancer (12/2020) COPD (chronic obstructive pulmonary disease) Erosive gastritis External hemorrhoid, bleeding Hyperlipidemia Kidney stone Obstructive sleep apnea Intolerant of CPAP machine Pneumonia Pseudomonas respiratory infection Rectal bleeding Symptomatic anemia Tobacco abuse UTI (urinary tract infection) Surgical History Surgical History H/O colectomy (2020) RIGHT COLECTOMY 01/30/21 H/O cystoscopy Excision of bladder cancer x2 H/O vascular surgery (2015) Stent in right superficial femoral artery History of AAA (abdominal aortic aneurysm) repair (10/2018) Endovascular repair History of kidney surgery Due to large kidney stone History of right cataract
[2022-10-20] VITALS (8 sets, daily range): BP systolic 113–127; BP diastolic 58–69; PULSE 74–99; RESP 16–20; TEMP 36.1–36.6; O2SAT 98–100; BMI 24.8
[2022-10-20] MEDS: SODIUM CHLORIDE 0.9% IV 1,000 ML 70 ML IV CONT ×2 (09:10→12:21)
[2022-10-20] MEDS: PANTOPRAZOLE SODIUM IV 40 MG VIAL IV PUSH (09:10)
[2022-10-20 09:44] LABS: Basophils Percent Auto 0.4 % (0.2-1.2); Eosinophils Absolute Auto 0.1 K/mm3 (0-0.3); Eosinophils Percent Auto 2.5 % (0-4.4); Hematocrit 32.5 % (42.0-52.0); Hemoglobin 10.2 g/dL (14.0-18.0); Immature Granulocyte Absolute 0.02 K/mm3 (0.00-0.031); Immature Granulocyte Percent A 0.4 % (0-0.5); Lymphocytes Absolute Auto 1.05 K/mm3 (0.9-3.2); Lymphocytes Percent Auto 19.1 % (18.3-44.2); Mean Corpuscular HGB Conc 31.4 g/dl (32-36); Mean Corpuscular Hemoglobin 30.1 pg (26-34); Mean Corpuscular Volume 95.9 fl (80-100); Mean Platelet Volume 12.1 fl (7.4-10.4); Monocytes Absolute Auto 0.4 K/mm3 (0.1-0.6); Monocytes Percent Auto 7.1 % (2.6-8.5); Neutrophils Absolute Auto 3.9 K/mm3 (1.3-6.7); Neutrophils Percent Auto 70.5 % (45.5-73.1); Platelet Count Result 108 k/mm3 (150-375); Red Blood Count 3.39 M/mm3 (4.6-6.20); Red Cell Distribution Width 13.8 % (11.5-14.5); White Blood Count 5.5 K/mm3 (4.5-10.0)
[2022-10-20 10:13] LABS: Alanine Aminotransferase 24 U/L (6-50); Albumin Level 2.8 g/dL (3.5-5.1); Alkaline Phosphatase 63 U/L (38-126); Anion Gap 3 mmol/L (8-16); Aspartate Amino Transferase 30 U/L (17-59); Bilirubin,Total 0.3 mg/dL (0.2-1.3); Blood Urea Nitrogen 11 mg/dL (9-20); Calcium 8.3 mg/dL (8.4-10.2); Carbon Dioxide 28 mmol/L (22-30); Chloride 107 mmol/L (98-107); Estimated CRCL calculation 85 ml/min; Estimated Glomerular Filt Rate > 60; Glucose 77 mg/dL (65-110); Lactate Dehydrogenase 132 U/L (120-246); Lipase 107 U/L (23-300); Potassium 4.1 mmol/L (3.4-5.0); Sodium 138 mmol/L (137-145)
--- NOTE | 2022-10-20 12:07 | WPDGICN ---
Assessment and Plan Assessment and plan (1) Dysphagia: Code(s): R13.10 - Dysphagia, unspecified Status: Acute Assessment and Plan: dysphagia with weight loss, also noted abnormal thickening of esophagus will proceed with egd tomorrow last EGD 07/12 with gastritis, normal esophagus (when he presented with anemia) (2) Weight loss: Code(s): R63.4 - Abnormal weight loss Status: Acute Assessment and Plan: not eating much egd in am (3) Urinary tract infection: Code(s): N39.0 - Urinary tract infection, site not specified Status: Acute Assessment and Plan: on abx (4) Acute pancreatitis: Code(s): K85.90 - Acute pancreatitis without necrosis or infection, unspecified Status: Acute Assessment and Plan: possible pancreatitis but normal liver enzymes and lipase no more abdominal pain (he had few days ago), denies alcohol use or previous pancreatitis (5) Colon cancer: Onset Date: 12/2020 Code(s): C18.9 - Malignant neoplasm of colon, unspecified Status: Acute Assessment and Plan: last colonoscopy 01/2022 CEA level normal 07/2022 he is seeing oncology as outpatient (6) Normocytic anemia: Code(s): D64.9 - Anemia, unspecified Status: Acute Assessment and Plan: monitor GI Consult Note Consult date/time: 10/20/22 12:07 Reason for consult: dysphagia, weight loss, pancreatitis HPI: Pedro nAgelo is a 72 year old male with history of COPD, tobacco dependence, colon CA s/p rt hemicolectomy (stage 2 and did not require chemotherapy- seeing Dr Bhakta- repeat colonoscopy 01/2022 with small polyp otherwise no findings).?He came to the emergency room due to reflux symptom for about 2 weeks and also dysphagia both solids and liquids with regurgitation and having hard time eating, denies odynophagia. Also had weight loss of roughly unintentional [address] of abdomen and pelvis was significant for uncomplicated pancreatitis, possible thickening of esophagus- ? esophagitis. Urinalysis had numerous WBCs present and started on antibiotics. Liver enzymes and lipase normal. Also noted hgb 10 (normally ~ 13) Review of Systems Constitutional: Constitutional: Reports weight loss Eyes: Eyes: Denies blurry vision ENT: Reports Normal hearing present Cardiovascular: Cardiovascular: Denies chest pain Respiratory: Respiratory: Denies cough Gastrointestinal: Gastrointestinal: Reports abdominal pain and Reports nausea Genitourinary: Genitourinary: Denies dysuria Musculoskeletal: Musculoskeletal: Denies arthralgias Integumentary/Breasts: Skin/Breast: Denies rash Neurologic: Denies Abnormal speech present Psychiatric: Psychiatric: Denies behavioral changes [facility] Past Medical History Medical History Adenomatous colon polyp (06/2020) Adult idiopathic generalized osteoporosis Ankle fracture, left Ankle fracture, right Arthritis Atrial fibrillation with RVR Bladder cancer (1988) Surgery plus chemotherapy Cataracts, bilateral Colon cancer (12/2020) COPD (chronic obstructive pulmonary disease) Erosive gastritis External hemorrhoid, bleeding Hyperlipidemia Kidney stone Obstructive sleep apnea Intolerant of CPAP machine Pneumonia Pseudomonas respiratory infection Rectal bleeding Symptomatic anemia Tobacco abuse UTI (urinary tract infection) Surgical History Surgical History H/O colectomy (2020) RIGHT COLECTOMY 01/30/21 H/O cystoscopy Excision of bladder cancer x2 H/O vascular surgery (2015) Stent in right superficial femoral artery History of AAA (abdominal aortic aneurysm) repair (10/2018) Endovascular repair History of kidney surgery Due to large kidney stone History of right cataract surgery (1995) Family History Family History
--- NOTE | 2022-10-20 14:19 | PM.IMPN ---
Progress Note: A&P Assessment and Plan (1) Dysphagia: Code(s): R13.10 - Dysphagia, unspecified Status: Acute Assessment and Plan: Patient presents with was dysphagia. He is an ex-smoker. He faith red flag symptoms with weight loss. CT scan shows distant esophageal wall thickening. He has been started on Protonix. GI has been consulted with plans for EGD in the morning. (2) Weight loss: Code(s): R63.4 - Abnormal weight loss Status: Acute Assessment and Plan: Patient has had 30 lb weight loss that was unintentional. This is on top of recently losing [address] scan did not show any concerning findings for metastatic disease. He had a screening CT of the chest which was negative. Follow-up on EGD findings. (3) Acute pancreatitis: Code(s): K85.90 - Acute pancreatitis without necrosis or infection, unspecified Status: Acute Assessment and Plan: Patient presents with upper abdominal pain associated with his dysphagia. CT scan shows mild peripancreatic fat stranding and fluid collections suggestive of pancreatitis. Patient's abdominal pain has resolved. Lipase was normal and has remained normal on repeat. Word will check triglyceride levels. Check right upper quadrant ultrasound. GI consulted. Continue clear liquid diet. (4) Paroxysmal atrial fibrillation: Code(s): I48.0 - Paroxysmal atrial fibrillation Status: Acute Assessment and Plan: Patient with a history of paroxysmal atrial fibrillation. He is on Xarelto which is currently on hold. He is also on sotalol which will resume. EKG showing normal sinus rhythm. Continue to follow. (5) Urinary tract infection: Code(s): N39.0 - Urinary tract infection, site not specified Status: Acute Assessment and Plan: UA noted. Urine culture collected. Patient has been started on Rocephin. Follow-up on urine culture results and narrow antibiotics when able. (6) Thrombocytopenia: Code(s): D69.6 - Thrombocytopenia, unspecified Status: Acute Assessment and Plan: Plt 108K today. Consumptive? Check B12/.folate. Monitor for now. Not on heparin Plan DVT prophylaxis -SCDs Code status -full Subjective Date/time seen: 10/20/22 14:19 Interval history: 72yo male with COPD, colon CA, AFib and EDILSON here for dysphagia. He smokes on dunia occasions now. Patient states that he lost 30 lb intentionally earlier this year but has lost an additional 30 lb unintentionally. He denies any melena or hematochezia. No hematemesis. No chest pain shortness of breath. He did develop few days of abdominal pain that has resolved today. Describes his acid reflux symptoms initial chest. He has been having sticking sensation when eating or drinking in his lower chest area. Exam Narrative: AF 97.8 127/58 93 16 100% 3L Gen - NARD sitting up on the couch Chest - distant, clear BS, nml RR CV - RRR S1/S2 Abd - Soft, NT/ND, Positive BS Ext - No pedal edema Psych - Nml mood and affect Skin - Warm and dry Objective Data Vital Signs Vital Signs: Vital Signs - 24 hr 10/19/22 14:48 10/19/22 14:48 10/19/22 15:30 Temperature Pulse Rate 71 73 68 Respiratory Rate 20 14 Blood Pressure 125/71 129/78 Pulse Oximetry 100 100 Oxygen Delivery Oxygen Flow Rate Fraction of Inspired Oxygen 10/19/22 16:15 10/19/22 17:00 10/19/22 17:45 Temperature Pulse Rate 64 63 78 Respiratory Rate 12 12 20 Blood Pressure 129/62 130/64 108/58 L Pulse Oximetry 100 100 93 Oxygen Delivery Oxygen Flow Rate Fraction of Inspired Oxygen 10/19/22 18:35 10/19/22 21:44 10/20/22 05:34 Temperature 97.6 F 97.5 F L 97.0 F L Pulse Rate 86 79 74 Respiratory Rate 16 18 18 Blood Pressure 104/64 121/66 114/67 Pulse Oximetry 100 97 99 Oxygen Delivery Oxygen Flow Rate Fraction of Inspired Oxygen 10/20/22 09:08 10/20/22 08:00 10/20/22 13
[2022-10-20] MEDS: cefTRIAXone 2 GM/NS 100 ML 2 GM/100 ML BAG IVPB (17:19)
[2022-10-20] MEDS: SOTALOL HCL 40 MG TABLET PO (17:37)
[2022-10-21] VITALS (8 sets, daily range): BP systolic 97–124; BP diastolic 55–88; PULSE 63–88; RESP 16–27; TEMP 35.6–36.4; O2SAT 98–100
[2022-10-21 05:42] LABS: Hemoglobin 9.9 g/dL (14.0-18.0); Mean Corpuscular HGB Conc 30.9 g/dl (32-36); Mean Corpuscular Hemoglobin 29.5 pg (26-34); Mean Corpuscular Volume 95.2 fl (80-100); Mean Platelet Volume 12.8 fl (7.4-10.4); Platelet Count Result 106 k/mm3 (150-375); Red Blood Count 3.36 M/mm3 (4.6-6.20); Red Cell Distribution Width 13.6 % (11.5-14.5); White Blood Count 5.5 K/mm3 (4.5-10.0)
[2022-10-21 05:57] LABS: Phosphorus 3.1 mg/dL (2.5-4.5); Triglycerides 135 mg/dL (<150)
[2022-10-21] MEDS: SOTALOL HCL 40 MG TABLET PO (08:31)
[2022-10-21] MEDS: ROSUVASTATIN 10 MG TABLET 40 MG PO (08:32)
[2022-10-21] MEDS: PANTOPRAZOLE SODIUM IV 40 MG VIAL IV PUSH (08:32)
[2022-10-21 09:08] LABS: Folic Acid 15.5 ng/mL (2.76->20)
[2022-10-21] MEDS: LACTATED RINGERS 1,000 ML 150 ML IV CONT (10:35)
--- NOTE | 2022-10-21 11:08 | WPDANESEPPF ---
Anes - Initial Pre Proc Eval Procedure: Operation Date: 10/21/22 12:15 Proposed Procedures p Esophagogastroduodenoscopy - Lloyd Carreno MD Date/Time: 10/21/22 11:08 Surgeon: Nixon Gupta MD Pre Op Diagnosis: Dysphagia, Pancreatitis Patient Data Age: 72 Gender: M Height: 1.8 m Weight: 80.9 kg Last Vital Signs Temp 96.9 F L 10/21/22 10:33 Pulse 71 10/21/22 10:33 Resp 17 10/21/22 10:33 BP 123/68 10/21/22 10:33 Pulse Ox 100 10/21/22 10:33 O2 Del Method Nasal Cannula 10/21/22 10:33 O2 Flow Rate 3 10/21/22 10:33 FiO2 32 10/20/22 21:00 Allergies Allergy/AdvReac Type Severity Reaction Status Date / Time No Known Allergies Allergy Unknown Verified 10/21/22 10:31 Home Medications Medication Instructions Recorded Confirmed Type rivaroxaban 20 mg tablet (Xarelto) 20 mg PO HS 05/04/19 10/19/22 History rosuvastatin 40 mg tablet 40 mg PO DAILY 05/04/19 10/19/22 History albuterol sulfate 90 mcg/actuation See Rx Instructions .Route 04/21/22 10/19/22 Rx aerosol inhaler .COMPLEX #8.5 grams sotalol 80 mg tablet 40 mg PO DAILY 07/23/22 10/19/22 History glycopyrrolate 9 mcg-formoterol See Rx Instructions .Route 08/10/22 10/19/22 Rx 4.8 mcg HFA aerosol inhaler .COMPLEX #11 grams (Bevespi Aerosphere) Laboratory Tests 10/21/22 05:05 WBC 5.5 K/mm3 (4.5-10.0) RBC 3.36 L M/mm3 (4.6-6.20) Hgb 9.9 L g/dL (14.0-18.0) Hct 32.0 L % (42.0-52.0) MCV 95.2 fl (80-100) MCH 29.5 pg (26-34) MCHC 30.9 L g/dl (32-36) RDW 13.6 % (11.5-14.5) Plt Count 106 L k/mm3 (150-375) MPV 12.8 H fl (7.4-10.4) Phosphorus 3.1 mg/dL (2.5-4.5) Triglycerides 135 mg/dL (<150) Vitamin B12 502.0 pg/mL (239-931) Folate 15.5 ng/mL (2.76->20) Patient hx anesthesia problems: none Family hx anesthesia problems: none Results Review: All pre-operative results and documents have been reviewed as part of the pre-operative evaluation. [facility] Past Medical History Medical History Adenomatous colon polyp (06/2020) Adult idiopathic generalized osteoporosis Ankle fracture, left Ankle fracture, right Arthritis Atrial fibrillation with RVR Bladder cancer (1988) Surgery plus chemotherapy Cataracts, bilateral Colon cancer (12/2020) COPD (chronic obstructive pulmonary disease) Erosive gastritis External hemorrhoid, bleeding Hyperlipidemia Kidney stone Obstructive sleep apnea Intolerant of CPAP machine Pneumonia Pseudomonas respiratory infection Rectal bleeding Symptomatic anemia Tobacco abuse UTI (urinary tract infection) Surgical History Surgical History H/O colectomy (2020) RIGHT COLECTOMY 01/30/21 H/O cystoscopy Excision of bladder cancer x2 H/O vascular surgery (2015) Stent in right superficial femoral artery History of AAA (abdominal aortic aneurysm) repair (10/2018) Endovascular repair History of kidney surgery Due to large kidney stone History of right cataract surgery (1995) Family History Family History Father Family history of obesity Family history of cardiovascular disease Family history of coronary artery disease Sibling Family history of congenital heart disease, Onset Age: 60 Family history of respiratory disorder, Onset Age: 73 Mother Family history of primary malignant neoplasm of liver, Onset Age: 62 Social History Social History Social History: The patient is . He has 2 children. They are both boys and he desires to have both of his sons as the durable power regulatory attorney for healthcare. The patient desires to be a full code. 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 T
--- NOTE | 2022-10-21 12:24 | PC.NURSE ---
Patient returned from GI lab per wheelchair at 1207.
[2022-10-21] MEDS: SUCRALFATE SUSP 100 MG/ML 10 ML UDC 1000 MG PO (16:09)
[2022-10-21] MEDS: cefTRIAXone 2 GM/NS 100 ML 2 GM/100 ML BAG IVPB (16:09)
--- NOTE | 2022-10-21 16:27 | PM.DS ---
DS: Admitting Diagnosis Discharge Date 10/21/22 Admitting Diagnosis Dysphagia DS: Discharge Diagnosis Discharge Diagnosis (1) Dysphagia: Code(s): R13.10 - Dysphagia, unspecified Status: Acute (2) Weight loss: Code(s): R63.4 - Abnormal weight loss Status: Acute (3) Acute pancreatitis: Code(s): K85.90 - Acute pancreatitis without necrosis or infection, unspecified Status: Acute (4) Paroxysmal atrial fibrillation: Code(s): I48.0 - Paroxysmal atrial fibrillation Status: Acute (5) Urinary tract infection: Code(s): N39.0 - Urinary tract infection, site not specified Status: Acute (6) Thrombocytopenia: Code(s): D69.6 - Thrombocytopenia, unspecified Status: Acute DS: Summary Hospital Course Reason for hospitalization: 72yo male with COPD, colon CA, AFib and EDILSON here for dysphagia. He smokes on rare occasions now. Please see H&P for details. Hospital Course: Patient presents with dysphagia. He is an ex-smoker.? He had red flag symptoms with weight loss.? Patient has had 30 lb weight loss that was unintentional.? This is on top of recently losing [address] scan did not show any concerning findings for metastatic disease.? He had a recent screening CT of the chest which was negative.? CT scan did show distant esophageal wall thickening.? RUQ ultrasound showing XT a ptosis, fixed echogenic foci along the gallbladder wall either sludges, stone or polyp. He also had palpable gastric body that may be related to inflammatory changes. He has been started on Protonix.? GI was consulted and EGD performed showing Grade II distal esophagitis, gastric antral ulcer without signs of bleeding and moderate gastritis. Patient also had upper abdominal pain associated with his dysphagia.? CT scan also showed mild peripancreatic fat stranding and fluid collections suggestive of pancreatitis.?Lipase was normal and has remained normal on repeat.?TG level normal. Felicity that he did not have pancreatitis but these findings related to EGD findings. Patient with a history of paroxysmal atrial fibrillation.? He is on Xarelto which was held.?EKG showing normal sinus rhythm.? Sotalol resumed. UA noted but urine culture negative. Plt dropped to 108K. B12/folate levels normal. Not on heparin. Plan to repeat in 1 week. Patient able to tolerate diet. He feels better and is ready for discharge. He overall did well and was able to be discharged home on 10/21/2022. Status at Discharge Cognitive/behavioral status at discharge: stable Time Spent with Patient Time attestation: Total time spent providing and/or coordinating discharge services: 35 minutes Time spent: Greater than 30 minutes Exam Narrative: AF 96.0 108/65 88 16 100% 3L Gen - NARD Chest - distant, clear BS, nml RR CV - RRR S1/S2 Abd - Soft, NT/ND, Positive BS Ext - No pedal edema Psych - Nml mood and affect Skin - Warm and dry DS: Data Data Completed and Pending Pending studies at discharge: Pending at discharge 10/21/22 11:39 Surgical [PTH] Routine Labs on day of discharge: Labs from last 24 hours 10/21/22 05:05 WBC 5.5 RBC 3.36 L Hgb 9.9 L Hct 32.0 L MCV 95.2 MCH 29.5 MCHC 30.9 L RDW 13.6 Plt Count 106 L MPV 12.8 H Phosphorus 3.1 Triglycerides 135 Vitamin B12 502.0 Folate 15.5 Discharge Plan Discharge Attending physician on discharge: Jayce Trujillo Consulting providers: Lloyd Carreno Discharging Clinician: Jayce Trujillo Anticipated Discharge Date/Time: 10/21/22 16:39 Patient Disposition: Home, Self-Care Activity: as tolerated Diet: low fat Discharge Instructions: No smoking and avoid all products containing nicotine or tobacco Take precautions to avoid falls. Rise slowly from a lying or sitting position. Pause before standing or walking. Contact your doctor or call 911 and come to the [facility]
== END 2022-10-21 17:22 | disposition home or self-care (01) ==
LOC: ANHED 13:46 → ANH3MED 19:14
PROVIDERS: Emergency Medicine; Internal Medicine Gastroenterology; Admitting Provider Internal Medicine; Emergency Provider Emergency Medicine; PCP Family Medicine Adolescent Medicine; Visit Provider Internal Medicine
PROC: 0DJ08ZZ Inspection of Upper Intestinal Tract, Via Natural or Artificial Opening Endoscopic (ICD-10-PCS; CPT 43235; principal; 2022-10-21 12:15)
DX: K20.90 Esophagitis, unspecified without bleeding (principal); K25.9 Gastric ulcer, unspecified as acute or chronic, without hemorrhage or perforation; K29.70 Gastritis, unspecified, without bleeding; R62.7 Adult failure to thrive; I48.20 Chronic atrial fibrillation, unspecified; J44.9 Chronic obstructive pulmonary disease, unspecified; E78.5 Hyperlipidemia, unspecified; Z20.822 Contact with and (suspected) exposure to COVID-19; C18.9 Malignant neoplasm of colon, unspecified; Z90.49 Acquired absence of other specified parts of digestive tract; N39.0 Urinary tract infection, site not specified; D69.6 Thrombocytopenia, unspecified; K76.0 Fatty (change of) liver, not elsewhere classified; G47.33 Obstructive sleep apnea (adult) (pediatric); R94.31 Abnormal electrocardiogram [ECG] [EKG]; D64.9 Anemia, unspecified; Z98.62 Peripheral vascular angioplasty status; M81.0 Age-related osteoporosis without current pathological fracture; R06.09 Other forms of dyspnea; Z87.891 Personal history of nicotine dependence; Z79.51 Long term (current) use of inhaled steroids; Z79.01 Long term (current) use of anticoagulants; Z79.899 Other long term (current) drug therapy; Z83.6 Family history of other diseases of the respiratory system
CPT/HCPCS: 43239; 36415; 74177; 76705; 80053; 81001; 82607; 82746; 83615; 83690; 84100; 84478; 85025; 85027; 87086; 87088; 87636; 88305; 88342; 93005; 96361; 96365; 96375; 96376; 99285; A9270; C9113; G0378; J0696; J2704; J7030; J7120; Q9967

== ENCOUNTER 2022-10-28 13:11 | Outpatient (CLI) | payer MEDICARE, SELFPAY ==
[2022-10-28 13:58] LABS: Hematocrit 37.2 % (42.0-52.0); Hemoglobin 11.5 g/dL (14.0-18.0); Mean Corpuscular HGB Conc 30.9 g/dl (32-36); Mean Corpuscular Hemoglobin 29.4 pg (26-34); Mean Corpuscular Volume 95.1 fl (80-100); Mean Platelet Volume 11.9 fl (7.4-10.4); Platelet Count Result 219 k/mm3 (150-375); Red Blood Count 3.91 M/mm3 (4.6-6.20); Red Cell Distribution Width 13.9 % (11.5-14.5); White Blood Count 8.6 K/mm3 (4.5-10.0)
== END 2022-10-28 13:12 | disposition home or self-care (01) ==
LOC: ANHLAB 13:13
PROVIDERS: PCP Family Medicine Adolescent Medicine; Visit Provider Internal Medicine
DX: D69.6 Thrombocytopenia, unspecified (principal)
CPT/HCPCS: 36415; 85027